=== PATIENT | female | born 1995 | race Caucasian/White ===

== ENCOUNTER 2020-01-02 09:07 | Emergency (ER) | payer BC ==
[2020-01-02 09:48] LABS: Urine Blood 3+ (NEG); Urine Glucose NEGATIVE (NEG); Urine Protein NEGATIVE (NEG); Urine Specific Gravity <1.005 (1.005-1.030); Urine pH 6.5 (5.0-7.0)
[2020-01-02] MEDS ORDERED: ACETAMINOPHEN 500 MG TAB ONE (10:09)
[2020-01-02 10:14] LABS: Basophils % 0.3 % (0-1.3); Hematocrit 37.5 % (36.0-45.0); Lymphocytes % 27.5 % (15.3-44.8); MPV 8.1 fL (7.6-11.3); RBC Red Blood Cell Count 4.28 M/uL (3.86-4.86)
[2020-01-02 10:18] LABS: BUN Blood Urea Nitrogen 7 mg/dL (7-18); Bicarbonate 26 mmol/L (21-32); Glucose Level 112 mg/dL (74-106); Potassium 3.3 mmol/L (3.5-5.1); Sodium Level 134 mmol/L (136-145)
[2020-01-02 10:29] LABS: Urine Bacteria 20-50 /HPF (<20); Urine Culture Reflex Order NOT NEEDED; Urine RBC <5 /HPF (NONE SEEN)
[2020-01-02] MEDS ORDERED: CEFTRIAXONE/SWI 1gm 1 GM/10 ML SYR ONE (10:40)
[2020-01-02] MEDS ORDERED: NA CHLORIDE 0.9% 2,000 ML ONE (10:40)
--- OUTSIDE RECORDS SUMMARY | 2020-01-02 10:45 | XMS REPORT | Continuity of Care Document ---
:1995 Author Organization [facility] Address [address] [place] [address] Care Team Providers Name Role Phone Gabriele RN Attending Clinician Unavailable Nurse, Urgent Attending Clinician Unavailable Problems This patient has no known problems. Allergies, Adverse Reactions, Alerts This patient has no known allergies or adverse reactions. Medications This patient has no known medications. Procedures This patient has no known procedures. Encounters Start End Encounter Admission Attending Care Care Encounter Source Date/Time Date/Time Type Type Clinicians Facility Department ID 2019-12-28 2019-12-28 Telephone Kellie Suazo [id number] 00:00:00 00:00:00 [place] [id number] [id number] 2019-12-28 2019-12-28 Letter Kellie Suazo [id number] 00:00:00 00:00:00 (Out) [place] [id number] [id number] 2019-12-26 2019-12-26 Laboratory Nurse, [facility] [id number] 16:11:45 16:48:51 Only Urgent HEALTH [id number] [facility] [id number] Primary & 370 Specialty Care Results This patient has no known results.
[2020-01-02 10:46] LABS: Albumin 3.7 g/dL (3.4-5.0); Bilirubin Direct 0.2 mg/dL (0-0.2); Bilirubin Total 0.7 mg/dL (0.2-1.0); Protein, Total 8.4 g/dL (6.4-8.2)
--- OUTSIDE RECORDS SUMMARY | 2020-01-02 10:46 | XMS REPORT | Summary of Care ---
:1995 Author Organization [facility] Address [address] [place] [address] Care Team Providers Name Role Phone Long Insurance [facility] Primary [facility] Provider Reason for Visit Reason Comments CONTROL telehealth Encounter Details Date Type Department Care Team Description 10/06/[address] [facility] general [place] Lianet Zhong, counseling and advice [address] [facility] for contraceptive [place], [place] [address] management ( Primary [phone] ST Dx) [phone] [place], [place] [address] Allergies No Known Allergiesdocumented as of this encounter (statuses as of 10/06/2019) Medications Medication Sig Dispensed Refills Start Date End Date Status buPROPion SR Take 1 tablet by 60 tablet 0 10/22/2018 Active (WELLBUTRIN SR) 150 mg mouth 2 (two) SR tabletIndications: times daily. Depression affecting in third trimester, antepartum docusate calcium 240 mg Take 1 capsule 60 capsule 1 10/22/2018 Active capsuleIndications: by mouth once (spontaneous vaginal daily as needed delivery), Single live for , Anemia, Constipation. ibuprofen 600 mg Take 1 tablet by 60 tablet 1 10/22/2018 Active tabletIndications: mouth every 6 (spontaneous vaginal (six) hours as delivery), Single live needed for Pain (scale 1-3) or Pain (scale 4-6) (Pain). Take with food or milk. Iron Fum & P-FA-Vit B & Take 1 capsule 30 capsule 2 10/22/2018 Active C No.9 (INTEGRA PLUS) by mouth daily. 125 mg iron- 1 mg CapIndications: Depression affecting in third trimester, antepartum, History of gestational diabetes mellitus (GDM), Polyp of colon, unspecified part of colon, unspecified type, Obesity in , History of IBS, 39 weeks gestation of , Depression, unspecified depression type, Sponge kidney, Morbid obesity with body mass index of 40.0-49.9, (spontaneous vaginal delivery), Anemia, esomeprazole (NEXIUM) Take 40 mg by 0 Active 40 mg capsule mouth daily with breakfast. buPROPion XL Take 1 tablet by 30 tablet 0 01/21/2019 Active (WELLBUTRIN XL) 150 mg mouth daily. 24 hr tabletIndications: Other depression esomeprazole (NEXIUM) Take 1 capsule 30 capsule 0 01/21/2019 Active 40 mg by mouth daily capsuleIndications: with breakfast. Heartburn norelgestromin-ethinyl Apply 1 Patch to 4 Patch 2 10/06/2019 Active estradiol (XULANE) skin weekly. 150-35 mcg/24 hr patchIndications: Other general counseling and advice for contraceptive management documented as of this encounter (statuses as of 10/06/2019) Active Problems Problem Noted Date Morbid obesity with body mass index of 40.0-49.9 10/20 Other depression 06/30/2018 History of IBS 03/17/2018 Polyp of colon, unspecified part of colon, unspecified type 07/08/2017 Tobacco use 11/01/2015 Gastroesophageal reflux disease without esophagitis documented as of this encounter (statuses as of 10/06/2019) Resolved Problems Problem Noted Date Resolved Date Encounter for care of lactating mother 11/11/2018 01/24/2019 (spontaneous vaginal delivery) 10/22/201811/11 Single live 10/22/2018 11/11/2018 Anemia, 10/22/2018 01/24/2019 Sponge kidney 10/20/2018 11/11/2018 Depression affecting in third trimester, 9 11/11/2018 antepartum Headache in 09/22/2018 11/11/2018 39 weeks gestation of 06/21/2018 11/12/19 19 UTI symptoms 04/16/2018 11/11/2018 Supervision of high-risk 03/17/201811/11 Multiparity 03/17/2018 11/11/2018 Obesity in 03/17/2018 11/11/2018 Nausea and vomiting during prior to 22 weeks 03/1711/11/2018 gestation Weight gain finding 07/08/2017 03/17/2018 Uses vaginal contraceptive ring 07/08/2017 03/17/20 18 Supervision of high-risk of young primigravida, 07/08/2017 third trimester History of gestational diabetes mellitus (GDM) 11/01/2015 11/11/2018 11/01/2015 03/17/2018 documented as of this encounter (statuses as of 10/06/2019) Immunizations Name Administration Dates Next Due HPV9 11/11/2018, 07/08/2017 09/05/2017 Influenza Virus Vaccine 03/08/2018 Tdap 08/05/2018 documented as of this encounter Social History Tobacco Use Types Packs/Day Years Used Date Current Every Day Smoker Cigarettes 0.75 Sta rted: 03/17/2010 Smokeless Tobacco: Never Used Comments: she smokes 5 cigarettes to 1.5 ppd, she says depends how she's feeling Alcohol Use Drinks/Week oz/Week Comments Yes 0 Standard drinks or equivalent 0.0 Occasionally Sex Assigned at Date Recorded Not on file Job Start Date Occupation Industry Not on file Not on file Not on file Travel History Travel Start Travel End No recent travel history available. documented as of this encounter Last Filed Vital Signs Not on filedocumented in this encounter Progress Notes Lianet Velez, WHCNP - 10/06/2019 3:00 PM CDT TELEHEALTH NOTE Verbal consent obtained from Patient: Bijal Andrade due to the COVID-19 pandemic for telehealth services provided below. Communication with patient was conducted via Telephone due to patient unable to obtain video call option. Location of Patient: Home Location of Provider: home Date of Service: 10/06/2019 Chief Complaint: control HPI: Bijal Andrade is a 24 year old female with Past Medical History: Diagnosis Date Anemia, 10/22/2018 Chronic kidney disease Sponge Kidney / Stones/ UTI Depression, unspecified depression type 06/30/2018 GDM (gestational diabetes mellitus) 11/01/2015 IBS (irritable bowel syndrome) Medullary sponge kidney Migraine The patient visit is conducted via telehealth on today. She reports she desires to start control on today. She reports the last time she had intercourse was 2 days before her cycle was complete, she reports her last cycle ended on 09/28/19. She reports she desires to start control patch on today visit. She declines wanting to start ocp because she feels as though she may forget to take the pill, and she does not desire depo because of weight gain. Se ultimately desires an IUD but reports she will come back to clinic in 3 months to be switched. .COVID-19 SCREEN: ? Recent history of travel to a high-risk area: No ? Recent sick contacts before or during admission: No ? Contact with a proven COVID-19 case: No ? Symptoms of COVID-19, which include fever, dry cough, fatigue, difficulty breathing: No This patient is considered low risk for COVID-19 infection. MEDICATIONS: Current Outpatient Medications Medication Sig Dispense Refill norelgestromin-ethinyl estradiol (XULANE) 150-35 mcg/24 hr patch Apply 1 Patch to skin weekly. 4Patch 2 buPROPion XL (WELLBUTRIN XL) 150 mg 24 hr tablet Take 1 tablet by mouth daily. 30 tablet 0 esomeprazole (NEXIUM) 40 mg capsule Take 40 mg by mouth daily with breakfast. esomeprazole (NEXIUM) 40 mg capsule Take 1 capsule by mouth daily with breakfast. 30 capsule 0 buPROPion SR (WELLBUTRIN SR) 150 mg SR tablet Take 1 tablet by mouth 2 (two) times daily. 60 tablet 0 docusate calcium 240 mg capsule Take 1 capsule by mouth once daily as needed for Constipation. 60 capsule 1 ibuprofen 600 mg tablet Take 1 tablet by mouth every 6 (six) hours as needed for Pain (scale 1-3) or Pain (scale 4-6) (Pain). Take with food or milk. 60 tablet 1 Iron Fum & P-FA-Vit B & C No.9 (INTEGRA PLUS) 125 mg iron- 1 mg Cap Take 1 capsule by mouth daily. 30 capsule 2 No current facility-administered medications for this visit. ROS Constitutional: negative Eyes: negative Ears: negative Nose/Sinuses: negative Mouth/Throat: negative Cardiovascular: negative Respiratory: negative Gastrointestinal: negative Genitourinary: negative Musculoskeletal: negative Integumentary: negative Neuro: negative Psych: negative Endocrine: negative Hem/Lymph: negative Allergy/Immunology: negativet TELEHEALTH EXAM Constitutional: alert and in no distress Respiratory: breathing comfortably Neuro: answers questions appropriately Psych: normal affec ASSESSMENT/ PLAN Bijal Andrade is a 24 year old female with PMH as above presenting with: 1. Other general counseling and advice for contraceptive management Comment; desires Plan; as ordered - norelgestromin-ethinyl estradiol (XULANE) 150-35 mcg/24 hr patch; Apply 1 Patch to skin weekly. Dispense: 4 Patch; Refill: 2 Patient advised on risk/benefits of all control she verbalized understanding and she elected to start the control. Patient advised on quick start and to use a back up method condoms for at least 2 weeks she verbalized understanding After visit summary (AVS ) documentation will be available through [employer] for this encounter. A total of 15 minutes was spent on the Telephone due to patient unable to obtain video call option. MACHO Liu documented in this encounter Plan of Treatment Date Type Specialty Care Team Description 01/06/2020 Office Visit [facility] Jnaeth Velez WHCNP [address] [place], [place] [address] [phone] Health Maintenance Due Date Last Done Comments PNEUMOCOCCAL 0-64 YEARS 09/27/2003 COMBINED SERIES (1 of 1 - PPSV23) MENINGOCOCCAL B VACCINES (1 of 09/27/2007 2 - Risk Bexsero 2-dose series) INFLUENZA VACCINE (#1) 2019 03/08/2018 HPV VACCINES (3 - Female 03/14/2019 11/11/2018, 3-dose series) 07/08/2017 CHLAMYDIA SCREENING 01/22/2020 01/21/2019, 09/29/2018, 03/17/2018 PAP SMEAR 01/21/2022 01/21/2019 DTaP,Tdap,and Td Vaccines (2 - 08/05/2028 08/05/2018 Td) MENINGOCOCCAL VACCINE Aged Out No longer eligible based on patient's age to complete this to pic documented as of this encounter Results Not on filedocumented in this encounter Visit Diagnoses Diagnosis Other general counseling and advice for contraceptive management - Primary documented in this encounter Insurance Payer Benefit Plan Subscriber ID Effective Dates Phone Address Type / Group [facility] [id number] 2015-Saúl [phone] [address] PPO/POS [place] - OUT OF 7 [id number] [place] [address] documented as of this encounter Advance Directives Name Relationship Healthcare Agent Communication Relationship Sohail Valdez Spouse Primary healthcare agent
--- OUTSIDE RECORDS SUMMARY | 2020-01-02 10:46 | XMS REPORT | Summary of Care ---
:1995 Author Organization [facility] Address [address] [place] [address] Care Team Providers Name Role Phone Long Insurance Hmo Trevin Velez Primary Care Provider Reason for Visit Reason Comments Rx Concern/Question Pt. Called. Having Problems with Patches. Encounter Details Date Type Department Care Team Description 10/18/2019 Telephone [facility]- Lianet Velez Rx Concern/Question MACHO Scott (Pt. Called. Having [address] Problems with [place], [place] GA[place] A Patches.) [phone] [place], [place] [address] Allergies No Known Allergiesdocumented as of this encounter (statuses as of 10/21/2019) Medications Medication Sig Dispensed Refills Start Date [...] as of this encounter (statuses as of 10/21/2019) Active Problems Problem Noted Date Morbid obesity with body mass index of 40.0-49.9 10/20 Other depression 06/30/2018 History of IBS 03/17/2018 Polyp of colon, unspecified part of colon, unspecified type 07/08/2017 Tobacco use 11/01/2015 Gastroesophageal reflux disease without esophagitis documented as of this encounter (statuses as of 10/21/2019) Resolved Problems Problem Noted Date Resolved Date [...] as of this encounter (statuses as of 10/21/2019) Immunizations Name Administration Dates Next Due HPV9 [...] Signs Not on filedocumented in this encounter Plan of Treatment Date Type Specialty Care Team Description 01/06/2020 Office Visit [facility] [address] [address] [phone] Health Maintenance Due Date Last Done Comments PNEUMOCOCCAL 0-64 YEARS 09/27/2003 COMBINED SERIES (1 of 1 - PPSV23) MENINGOCOCCAL B VACCINES (1 of 09/27/2007 2 - Risk Bexsero 2-dose series) HPV VACCINES (3 - Female 03/14/2019 11/11/2018, 3-dose series) 07/08/2017 CHLAMYDIA SCREENING 01/22/2020 01/21/2019, 09/29/2018, 03/17/2018 INFLUENZA VACCINE (Season 02/21/2020 03/08/2018 Ended) PAP SMEAR 01/21/2022 01/21/2019 DTaP,Tdap,and Td Vaccines (2 - 08/05/2028 08/05/2018 Td) MENINGOCOCCAL VACCINE Aged Out No longer eligible based on patient's age to complete this to pic documented as of this encounter Results Not on filedocumented in this encounter Insurance Payer Benefit Plan Subscriber ID Effective Dates Phone Address Type / Group BCBS [facility] [id number] 2015-Saúl [phone] [address] PPO/POS [place] - OUT OF 7 [id number] [place] [address] documented as of this encounter Advance Directives Name Relationship Healthcare Agent Communication Relationship Sohail Valdez Spouse Primary healthcare agent
--- OUTSIDE RECORDS SUMMARY | 2020-01-02 10:46 | XMS REPORT | Summary of Care ---
:1997 Author Organization [facility] Address [address] [place] [address] Care Team Providers Name Role Phone Long Insurance Hmo Trevin Velez Primary Care Provider Reason for Visit Reason Comments Rx Concern/Question Pt. Called. Having Problems with Patches. Encounter Details Date Type Department Care Team Description 10/18/2019 Telephone [facility]- Lianet Velez Rx Concern/Question MACHO Scott (Pt. Called. Having [address] Problems with [place], [place] GAURAV A Patches.) [phone] [place], [place] [address] Allergies No Known Allergiesdocumented as of this [...] 01/06/2020 Office Visit [facility] [address] [address] [phone] Health Maintenance Due Date Last Done Comments [...] Dates Phone Address Type / Group BCBS [facility] [id number] 2015-Saúl [phone] [address] PPO/POS [place] - OUT OF 7 [id number] [place] [address] documented as of this encounter Advance Directives Name Relationship Healthcare Agent Communication Relationship Sohail Valdez Spouse Primary healthcare agent
--- OUTSIDE RECORDS SUMMARY | 2020-01-02 10:47 | XMS REPORT | Summary of Care ---
:[address] [facility] Address [address] [place] [address] Care Team Providers Name Role Phone Long Insurance Hmo Trevin Velez [facility] Primary Care Provider Reason for Visit Reason Comments Assessment UTI Encounter Details Date Type Department Care Team Description 10/28/2019 Telephone [facility]- Lianet Velez, Assessment (UTI) [facility] [address] [facility] [address] [place] [address]55 [facility] [phone] [place], [place] [address] [phone] Allergies No Known Allergiesdocumented as of this encounter (statuses as of 10/28/2019) Medications Medication Sig Dispensed Refills Start Date [...] as of this encounter (statuses as of 10/28/2019) Active Problems Problem Noted Date Morbid obesity with body mass index of 40.0-49.9 10/20 Other depression 06/30/2018 History of IBS 03/17/2018 Polyp of colon, unspecified part of colon, unspecified type 07/08/2017 Tobacco use 11/01/2015 Gastroesophageal reflux disease without esophagitis documented as of this encounter (statuses as of 10/28/2019) Resolved Problems Problem Noted Date Resolved Date [...] as of this encounter (statuses as of 10/28/2019) Immunizations Name Administration Dates Next Due HPV9 [...] 01/06/2020 Office Visit [facility] Janeth Velez, [facility] [address] [place], [place] [address] [phone] Health Maintenance Due Date Last Done Comments [...] Dates Phone Address Type / Group [facility] [id number] 2015-Saúl [phone] [address] PPO/POS [place] - OUT OF t 7 [id number] [place] [address] documented as of this encounter Advance Directives Name Relationship Healthcare Agent Communication Relationship Sohail Valdez Spouse Primary healthcare agent
--- OUTSIDE RECORDS SUMMARY | 2020-01-02 10:48 | XMS REPORT | Summary of Care ---
:1997 Author Organization [facility] Address [address] [place] [address] Care Team Providers Name Role Phone Long Insurance Hmo Trevin Velez [facility] Primary Care Provider Reason for Visit Reason Comments UTI Encounter Details Date Type Department Care Team Description [facility]/28/2019 [facility] Lianet Carrion, UTI [address] [place] [address] [address] [facility] [phone] [place], [place] [address] [phone] Allergies No Known Allergiesdocumented as of this encounter (statuses as of 10/28/2019) Medications Medication Sig Dispensed Refills Start Date End Date Status buPROPion SR Take 1 tablet 60 tablet 0 10/22/2018 Ac tive (WELLBUTRIN SR) 150 mg by mouth 2 SR tabletIndications: (two) times Depression affecting daily. in third trimester, antepartum docusate calcium 240 Take 1 capsule 60 capsule 1 10/22/2018 Active mg capsuleIndications: by mouth once (spontaneous daily as needed vaginal delivery), for Single live , Constipation. Anemia, ibuprofen 600 mg Take 1 tablet 60 tablet 1 10/22/2018 Active tabletIndications: by mouth every (spontaneous vaginal 6 (six) hours delivery), Single live as needed for Pain (scale 1-3) or Pain (scale 4-6) (Pain). Take with food or milk. Iron Fum & P-FA-Vit B Take 1 capsule 30 capsule 2 10/22/2018 Active & C No.9 (INTEGRA by mouth daily. PLUS) 125 mg iron- 1 mg CapIndications: Depression [...] with breakfast. buPROPion XL Take 1 tablet 30 tablet 0 01/21/2019 Ac tive (WELLBUTRIN XL) 150 mg by mouth daily. 24 hr tabletIndications: Other depression esomeprazole (NEXIUM) Take 1 capsule 30 capsule 0 01/21/2019 Active 40 mg by mouth daily capsuleIndications: with breakfast. Heartburn norelgestromin-ethinyl Apply 1 Patch 4 Patch 2 10/06/2019 Active estradiol (XULANE) to skin weekly. 150-35 mcg/24 hr patchIndications: Other general counseling and advice for contraceptive management Nitrofurantoin&Nit. Take 1 capsule 20 capsule 0 10/28/2019 Active Macrocryst (MACROBID) by mouth 2 100 mg (two) times capsuleIndications: daily for 10 UTI symptoms days. documented as of this encounter (statuses as [...] Travel End No recent travel history available. COVID-19 Exposure Response Date Recorded In the last month, have you been in contact with No / Unsure 10/28/2019 4:23 PM CDT someone who was confirmed or suspected to have Coronavirus / COVID-19? documented as of this encounter Last Filed Vital Signs Not on filedocumented in this encounter Plan of Treatment Date Type Specialty Care Team Description 01/06/2020 Office Visit [facility] Janeth Velez, WHCNP [address] [address] [phone] Health Maintenance Due Date Last Done Comments [...] filedocumented in this encounter Visit Diagnoses Diagnosis UTI symptoms - Primary documented in this encounter Insurance Payer Benefit Plan Subscriber ID Effective Dates Phone Address Type / Group [facility] [id number] 2015-Saúl [phone] [address] PPO/POS [place] - OUT OF t 7 [id number] [place] [address] documented as of this encounter Advance Directives Name Relationship Healthcare Agent Communication Relationship Sohail José Miguel Spouse Primary healthcare agent
--- OUTSIDE RECORDS SUMMARY | 2020-01-02 10:48 | XMS REPORT | Summary of Care ---
:1997 Author Organization [facility] Address [address] [place] [address] Care Team Providers Name Role Phone Long Insurance Hmo Trevin Velez [facility] Primary Care Provider Reason for Visit Reason Comments Assessment UTI Encounter Details Date Type Department Care Team Description 10/28/2019 Telephone [facility]- Lianet Velez, Assessment (UTI) [facility] [address] [facility] [address] [place] [address] [facility] [phone] [place], [place] [address] [phone] Allergies No Known Allergiesdocumented as of this [...] Care Team Description 01/06/2020 Office Visit OB Rajis Janeth Velez, CNP [address] [facility] [place] [address] [phone] Health Maintenance Due Date Last Done Comments [...] Effective Dates Phone Address Type / Group [facility] [id number] 2015-Saúl [phone] [address] PPO/POS [place] - OUT OF t 7 [id number] [place] [address] documented as of this encounter Advance Directives Name Relationship Healthcare Agent Communication Relationship Sohail Valdez Spouse Primary healthcare agent
--- OUTSIDE RECORDS SUMMARY | 2020-01-02 10:49 | XMS REPORT | Summary of Care ---
:1995 Author Organization [facility] Address [address] [place] [address] Care Team Providers Name Role Phone Long Insurance [facility] Provider Reason for Visit Reason Comments LAB Encounter Details Date Type Department Care Team Description 10/28/2019 Group Tester Visit [facility] Vadim Velez, [facility] [address] [place] [address] UTI symptoms [facility], [facility] (Primary Dx) [address] [place] [address] Allergies No Known Allergiesdocumented as of this encounter (statuses as of 10/31/2019) Medications Medication Sig Dispensed Refills Start Date [...] as of this encounter (statuses as of 10/31/2019) Active Problems Problem Noted Date Morbid obesity with body mass index of 40.0-49.9 10/20 Other depression 06/30/2018 History of IBS 03/17/2018 Polyp of colon, unspecified part of colon, unspecified type 07/08/2017 Tobacco use 11/01/2015 Gastroesophageal reflux disease without esophagitis documented as of this encounter (statuses as of 10/31/2019) Resolved Problems Problem Noted Date Resolved Date [...] as of this encounter (statuses as of 10/31/2019) Immunizations Name Administration Dates Next Due HPV9 [...] OB Rajis Janeth Velez, CNP [address] [facility] [place] [address] [phone] Health Maintenance Due Date Last Done Comments [...] to pic documented as of this encounter Procedures Procedure Name Priority Date/Time Associated Comments Diagnosis POCT URINALYSIS W/O Routine 10/28/2019 4:32 PM UTI symptoms R esults for this SPECIFIC GRAVITY CDT procedure a re in the results section. URINE CULTURE Routine 10/28/2019 4:31 PM UTI symptoms Results for this CDT procedure are i n the results section. documented in this encounter Results POCT URINALYSIS W/O SPECIFIC GRAVITY (10/28/2019 4:32 PM CDT) Pathologist Sig nature POCT PH U 6 5 - 8 mg/dl POCT U LEUK EST 2+ Negative - Negative POCT U NIT positive Negative - Negative POCT U PROT 2+ Negative - Negative POCT U GLU negative Negative - Negative POCT U KETONE negative Negative - Negative POCT U BLD large Negative - Negative Specimen Urine - URINE, CLEAN CATCH URINE CULTURE (10/28/2019 4:31 PM CDT) URINE CULTURE >100,000 CFU/mL [facility] Escherichia coli SERVICES Specimen Urine - URINE, CLEAN CATCH Organism Antibiotic Method Susceptibility Escherichia coli Ampicillin SUSCEPTIBILITY TESTING 4: Susce ptible Escherichia coli Cefazolin SUSCEPTIBILITY TESTING <=4: Martha ceptible Escherichia coli Ceftriaxone SUSCEPTIBILITY TESTING <=1: Martha ceptible Escherichia coli Ciprofloxacin SUSCEPTIBILITY TESTING <=0.25: Susceptible Escherichia coli Ertapenem SUSCEPTIBILITY TESTING <=0.5: S usceptible Escherichia coli Gentamicin SUSCEPTIBILITY TESTING <=1: Martha ceptible Escherichia coli Levofloxacin SUSCEPTIBILITY TESTING <=0.12: Susceptible Escherichia coli Nitrofurantoin SUSCEPTIBILITY TESTING <=16: Espinoza sceptible Escherichia coli Piperacillin/Tazobactam SUSCEPTIBILITY TESTING <=4: Susceptible Escherichia coli Trimethoprim/Sulfamethoxa SUSCEPTIBILITY TESTIN G <=20: Susceptible luis Comment: Nitrofurantoin is not recommended for us e in treating pyelonephritis or systemic disease. Performing Organization Address City/State/Zipcode Phone Number [facility] CLIA: [id number], [address] [place], [place] [address] [facility] documented in this encounter Visit Diagnoses Diagnosis UTI symptoms - Primary documented in this encounter Insurance Payer Benefit Plan Subscriber ID Effective Dates Phone Address Type / Group [facility] [id number] 2015-Saúl [phone] [address] PPO/POS [place] - OUT OF t 7 [id number] [place] [address] documented as of this encounter Advance Directives Name Relationship Healthcare Agent Communication Relationship Sohail Valdez Spouse Primary healthcare agent
--- OUTSIDE RECORDS SUMMARY | 2020-01-02 10:49 | XMS REPORT | Summary of Care ---
:1995 Author Organization [facility] Address [address] [place] [address] Care Team Providers Name Role Phone Long Insurance [facility] Provider Reason for Visit Reason Comments URINARY TRACT INFECTION Encounter Details Date Type Department Care Team Description 10/31/2019 Telephone [facility]- Carlos Byrd, UR INARY TRACT [facility] INFECTION [address] [facility] [address] [place], [place] [id number] Allergies No Known Allergiesdocumented as of [...] OB Satellites Janeth Velez, WHCNP [address] [place] [address] [phone] Health Maintenance Due Date Last Done Comments [...] filedocumented in this encounter Visit Diagnoses Diagnosis Urinary tract infection without hematuri a, site unspecified - Primary documented in this encounter Insurance Payer Benefit Plan Subscriber ID Effective Dates Phone Address Type / Group [facility] [id number] 2015-Saúl [phone] [address] PPO/POS [place] - OUT OF t 7 [id number] [place] [address] documented as of this encounter Advance Directives Name Relationship Healthcare Agent Communication Relationship Sohailhumble Valdez Spouse Primary healthcare agent
--- OUTSIDE RECORDS SUMMARY | 2020-01-02 10:50 | XMS REPORT | Summary of Care ---
:1995 Author Organization [facility] Address [address] [place] [address] Care Team Providers Name Role Phone Long Insurance [facility] Primary [facility] Provider Reason for Visit Reason Comments URINARY TRACT INFECTION Encounter Details Date Type Department Care Team Description 10/31/2019 Telephone [facility]- Carlos Byrd, UR INARY TRACT [facility] INFECTION 110[address] [facility] [address] [place], [place] [phone] Allergies No Known [...] OB Satellites Janeth Velez, WHCNP [address] [place] [id number] [phone] Health Maintenance Due Date Last Done Comments [...] Effective Dates Phone Address Type / Group [facility] [id number] 2015-Saúl [phone] [address] PPO/POS [place] - OUT OF t 7 [id number] [place] [address] documented as of this encounter Advance Directives Name Relationship Healthcare Agent Communication Relationship Sohailhumble Valdez Spouse Primary healthcare agent
--- OUTSIDE RECORDS SUMMARY | 2020-01-02 10:51 | XMS REPORT | Summary of Care ---
:1995 Author Organization [facility] Address [address] [place] [address] Care Team Providers Name Role Phone Long Insurance Hmo Trevin Velez [facility] Primary Care Provider Reason for Visit Reason Comments CONTROL Discuss B/C Change Encounter Details Date Type Department Care Team Description [facility] Bir th control counseling (Primary Dx); Sabi Zhong KASSANDRA Screen for STD (sexually transmitted dis ease) [address] [address] [place], [place] 6[address] Allergies No Known Allergiesdocumented as of this encounter (statuses as of 11/08/2019) Medications Medication Sig Dispensed Refills Start Date [...] as of this encounter (statuses as of 11/08/2019) Active Problems Problem Noted Date Morbid obesity with body mass index of 40.0-49.9 10/20 Other depression 06/30/2018 History of IBS 03/17/2018 Polyp of colon, unspecified part of colon, unspecified type 07/08/2017 Tobacco use 11/01/2015 Gastroesophageal reflux disease without esophagitis documented as of this encounter (statuses as of 11/08/2019) Resolved Problems Problem Noted Date Resolved Date [...] as of this encounter (statuses as of 11/08/2019) Immunizations Name Administration Dates Next Due HPV9 [...] been in contact with No / Unsure 11/08/2019 2:01 PM CDT someone who was confirmed or suspected to have Coronavirus / COVID-19? documented as of this encounter Last Filed Vital Signs Vital Sign Reading Time Taken Comments Blood Pressure 136/81 11/08/2019 2:07 PM CDT Pulse 115 11/08/2019 2:02 PM CDT Temperature 37.4 C (99.3 F) 11/08/2019 2:02 PM CDT Respiratory Rate 16 11/08/2019 2:02 PM CDT Oxygen Saturation - - Inhaled Oxygen Concentration - - Weight 97.7 kg (215 lb 5 oz) 11/08/2019 2:02 PM CDT Height 165.1 cm (5' 5") 11/08/2019 2:02 PM CDT Body Mass Index 35.83 11/08/2019 2:02 PM CDT documented in this encounter Progress Notes RosieLianet, WHCNP - 11/08/2019 1:30 PM CDT Chief complaint: Chief Complaint Patient presents with CONTROL Discuss B/C Change HPI: the patient is here today for control management. She reports she was recently started onthe control patch but desires to be switched to something else. She reports her patch is constantly falling off and that makes her nervous that she may become . She reports she is still currently using the control patch, but she desires nexplanon instead. She reports she does desire STI testing on today, reporting she is with a new partner. She reports they are not exclusive and desires to be tested on today. Histories OB History Para Term AB Living 2 2 2 0 0 1 SAB TAB Ectopic Multiple Live Births 0 0 0 0 1 # Outcome Date GA Lbr Nick/2nd Weight Sex Delivery Anes PTL Lv 2 Term 10/21/18 39w1d 7 lb 15 oz (3.6 kg) 1 Term 11/02/15 40w0d 8 lb 15.2 oz (4.06 kg) M NORMAL SPONT JENY Past Medical History: Diagnosis Date Anemia, 10/22/2018 Chronic kidney disease Sponge Kidney / Stones/ UTI Depression, unspecified depression type 06/30/2018 GDM (gestational diabetes mellitus) 11/01/2015 IBS (irritable bowel syndrome) Medullary sponge kidney Migraine Family History Problem Relation Age of Onset Colon Cancer Maternal Grandfather 63 Colon Cancer Paternal Grandfather 63 Asthma Mother Arthritis Mother defects Mother Cancer Mother 25 Cervical Heart Mother Neurological Mother Depression Father Diabetes Father Hypertension Father defects Sister Asthma Maternal Aunt Depression Maternal Aunt Heart Maternal Aunt Arthritis Maternal Grandmother High cholesterol Maternal Grandmother Osteoporosis Maternal Grandmother Mental retardation Other Psychiatry Other Breast Cancer NoFHx Ovarian Cancer NoFHx Uterine Cancer NoFHx Genetic NoFHx Family Status Relation Name Status MGFa Alive PGFa Alive Mo (Not Specified) Fa (Not Specified) Sis (Not Specified) MAunt (Not Specified) MGMo (Not Specified) OTHER (Not Specified) NoFHx (Not Specified) Past Surgical History: Procedure Laterality Date COLONOSCOPY 04/2017 Pre-Cancerous EGD (ENDO) 04/2017 Erosion Social History Socioeconomic History Marital status: Single Spouse name: Not on file Number of children: Not on file Years of education: Not on file Highest education level: Not on file Occupational History Occupation: Unemployed Social Needs Financial resource strain: Not on file Food insecurity: Worry: Not on file Inability: Not on file Transportation needs: Medical: Not on file Non-medical: Not on file Tobacco Use Smoking status: Current Every Day Smoker Packs/day: 0.75 Types: Cigarettes Start date: 03/17/2010 Smokeless tobacco: Never Used Tobacco comment: she smokes 5 cigarettes to 1.5 ppd, she says depends how she's feeling Substance and Sexual Activity Alcohol use: Yes Alcohol/week: 0.0 standard drinks Comment: Occasionally Drug use: Not Currently Types: Marijuana Comment: Occasionally Sexual activity: Yes Partners: Male control/protection: Condom Comment: Last intercourse 01/03/2019 Lifestyle Physical activity: Days per week: Not on file Minutes per session: Not on file Stress: Not on file Relationships Social connections: Talks on phone: Not on file Gets together: Not on file Attends yarsani service: Not on file Active member of club or organization: Not on file Attends meetings of clubs or organizations: Not on file Relationship status: Not on file Intimate partner violence: Fear of current or ex partner: Not on file Emotionally abused: Not on file Physically abused: Not on file Forced sexual activity: Not on file Other Topics Concern Not on file Social History Narrative No domestic abuse or violence. Has cats but doesn't change liter box. Samaritan: None Social History Substance and Sexual Activity Sexual Activity Yes Partners: Male control/protection: Condom Comment: Last intercourse 01/03/2019 Labs Labs are pending. Radiology No new radiology. Allergies Bijal has No Known Allergies. Medications Bijal has a current medication list which includes the following prescription(s): norelgestromin-ethinyl estradiol, bupropion xl, esomeprazole, esomeprazole, bupropion sr, docusate calcium, ibuprofen, and iron fum & p-fa-vit b & c no.9. Review of Systems Constitutional: Negative. HENT: Negative. Eyes: Negative. Respiratory: Negative. Breasts: Negative. Cardiovascular: Negative. Gastrointestinal: Negative. Genitourinary: Negative. Musculoskeletal: Negative. Skin: Negative. Neurological: Negative. Psychiatric/Behavioral: Negative. Endocrine: Endocrine negative BP 136/81 (BP Location: Right arm, Patient Position: Sitting, BP CUFF SIZE: Adult Medium) | Pulse 115 | Temp 37.4 C (99.3 F) (Oral) | Resp 16 | Ht 5' 5" (1.651 m) | Wt 215 lb 5 oz (97.7 kg) |LMP 11/01/2019 (Approximate) | BMI 35.83 kg/m Pregravid BMI: Could not be calculated Physical Exam Vitals reviewed. Constitutional: She is oriented to person, place, and time. She appears well- developed and well-nourished. Her body habitus is normal. Cardiovascular: Regular rate and rhythm. No peripheral edema present. Pulmonary/Chest: Normal inspiratory effort. Neuro/Psychiatric: She has a normal mood and affect. She is oriented to person, place, and time. Skin: Skin normal. No lesion, no rash and no ulceration present. Assessment/Plan Return to clinic in 12 weeks. 01/2020 for WWE or sooner as needed return in 1 week for nexplanon insert control counseling (primary encounter diagnosis) Comment: as ordered Plan: POCT TEST Screen for STD (sexually transmitted disease) Comment: as ordered Plan: GC & CHLAMYDIA AMPLIFIED ASSAY, HIV 1/2 AG-AB WITH REFLEX This visit did not involve counseling and coordination that comprised more than 50% of the visit time. MACHO Liu 11/08/2019 2:33 PM documented in this encounter Plan of Treatment Date Type Specialty Care Team Description 11/10/2019 Office Visit OB Satellites Janeth Velez [facility] [address] [place], [place] [address] [phone] 02/08/2020 Office Visit OB Satellites Janeth Velez [facility]NP [address] [place], [place] [address] [phone] Name Type Priority Associated Diagnoses Date/Ti me GC & CHLAMYDIA LAB Routine Screen for STD (sexually 0 11/08/2019 2:45 PM CDT AMPLIFIED ASSAY transmitted disease) HIV 1/2 AG-AB WITH LAB Routine Screen for STD (sexual ly 11/08/2019 2:45 PM CDT REFLEX transmitted disease) Health Maintenance Due Date Last Done Comments [...] encounter Procedures Procedure Name Priority Date/Time Associated Diagnosis Comme nts POCT TEST Routine 11/08/2019 2:06 PM control Results for this CDT counseling procedure are i n the results section. documented in this encounter Results POCT TEST (11/08/2019 2:06 PM CDT) Pathologist Sig nature POCT PREG Negative On board controls acceptable Yes with C Line POCT PREG LOT # POCT PREG TEST DATE Specimen Urine - URINE, CLEAN CATCH documented in this encounter Visit Diagnoses Diagnosis control counseling - Primary General counseling for initiation of oth er contraceptive measures Screen for STD (sexually transmitted dis ease) Screening examination for venereal disea se documented in this encounter Insurance Payer Benefit Plan Subscriber ID Effective Dates Phone Address Type / Group [facility] [id number] 2015-Saúl [phone] [address] PPO/POS [place] - OUT OF t 7 [id number] [place] [address] documented as of this encounter Advance Directives Name Relationship Healthcare Agent Communication Relationship Sohail Valdez Spouse Primary healthcare agent
--- OUTSIDE RECORDS SUMMARY | 2020-01-02 10:51 | XMS REPORT | Summary of Care ---
:1995 Author Organization [facility] Address [address] [place] [address] Care Team Providers Name Role Phone Long Insurance Hmo Trevin Velez [facility] Primary Care Provider Reason for Visit Reason Comments CONTROL Discuss B/C Change Encounter Details Date Type Department Care Team Description [facility] Bir th control counseling (Primary Dx); Sabi Zhong KASSANDRA Screen for STD (sexually transmitted dis ease) [address] [address] [place], [place] [address] Allergies No Known Allergiesdocumented as of this [...] file Gets together: Not on file Attends episcopal service: Not on file Active member of [...] Has cats but doesn't change liter box. Jain: None Social History Substance and Sexual Activity [...] OB Satellites Janeth Velez WHCNP [address] [place], [place] [address] [phone] 02/08/2020 Office Visit OB Satellites Janeth Velez [facility]NP [address] [place], [place] [address] [phone] Name Type Priority Associated Diagnoses Date/Ti me [...] Phone Address Type / Group [facility] [id number] 2015-Saúl [phone] [address] PPO/POS [place] - OUT OF t 7 [id number] [place] [address] documented as of this encounter Advance Directives Name Relationship Healthcare Agent Communication Relationship Sohail Valdez Spouse Primary healthcare agent
--- OUTSIDE RECORDS SUMMARY | 2020-01-02 10:51 | XMS REPORT | Summary of Care ---
:1995 Author Organization [facility] Address [address] [place] [address] Care Team Providers Name Role Phone Long Insurance [facility] Provider Reason for Visit Reason Comments URINARY TRACT INFECTION Encounter Details Date Type Department Care Team Description 10/31/2019 Telephone [facility]- Carlos Byrd, UR INARY TRACT [facility] INFECTION [address] [facility] [address] [place], [place] [address] Allergies No Known [...] OB Satellites Janeth Velez, WHCNP [address] [place] [address] 15 [phone] Health Maintenance Due Date Last Done Comments [...] Effective Dates Phone Address Type / Group [facility] [id number] 2015-Saúl [phone] [address] PPO/POS [place] - OUT OF t 7 [id number] [place] [address] documented as of this encounter Advance Directives Name Relationship Healthcare Agent Communication Relationship Sohailhumble Valdez Spouse Primary healthcare agent
--- OUTSIDE RECORDS SUMMARY | 2020-01-02 10:52 | XMS REPORT | Summary of Care ---
:[address] [facility] Address [address] [place] [address] Care Team Providers Name Role Phone Long Insurance Hmo Trevin Velez WHCNP Primary Care Provider Reason for Visit Reason Comments CONTROL Encounter Details Date Type Department Care Team Description [facility]counter for initial prescription of implantable subdermal contraceptive (Primary Dx); Sabi Martini C, WHCNP Nexplanon insertion; [address] Gastroesophageal reflux dise ase without esophagitis; [facility] Situational depression [phone] [facility] [phone] [place] [address] Allergies No Known Allergiesdocumented as of this encounter (statuses as of 11/10/2019) Medications Medication Sig Dispensed Refills Start End Date Status Date buPROPion SR Take 1 60 tablet 0 Active (WELLBUTRIN SR) 150 tablet by 9 mg SR mouth 2 tabletIndications: (two) times Depression affecting daily. in third trimester, antepartum docusate calcium 240 Take 1 60 capsule 1 Active mg capsule by 9 capsuleIndications: mouth once (spontaneous daily as vaginal delivery), needed for Single live , Constipation Anemia, . ibuprofen 600 mg Take 1 60 tablet 1 Act ynes tabletIndications: tablet by 9 (spontaneous mouth every vaginal delivery), 6 (six) Single live hours as needed for Pain (scale 1-3) or Pain (scale 4-6) (Pain). Take with food or milk. Iron Fum & P-FA-Vit B Take 1 30 capsule 2 Active & C No.9 (INTEGRA capsule by 9 PLUS) 125 mg iron- 1 mouth daily. mg CapIndications: Depression affecting in third trimester, antepartum, History of gestational diabetes mellitus (GDM), Polyp of colon, unspecified part of colon, unspecified type, Obesity in , History of IBS, 39 weeks gestation of , Depression, unspecified depression type, Sponge kidney, Morbid obesity with body mass index of 40.0-49.9, (spontaneous vaginal delivery), Anemia, buPROPion XL Take 1 30 tablet 0 Active (WELLBUTRIN XL) 150 tablet by 9 mg 24 hr mouth daily. tabletIndications: Other depression esomeprazole (NEXIUM) Take 1 30 capsule 0 Active 40 mg capsule by 9 capsuleIndications: mouth daily Heartburn with breakfast. norelgestromin-ethiny Apply 1 4 Patch 2 Active l estradiol (XULANE) Patch to 0 150-35 mcg/24 hr skin weekly. patchIndications: Other general counseling and advice for contraceptive management esomeprazole (NEXIUM) Take 1 30 capsule 1 Active 40 mg capsule by 0 capsuleIndications: mouth daily Gastroesophageal with reflux disease breakfast. without esophagitis esomeprazole (NEXIUM) Take 40 mg 0 0 Discontinued 40 mg capsule by mouth 20 (Reord er) daily with breakfast. Hospital, Clinic, or Other Ordered Dose Route Frequency Start Date End Date Status Facility Administered Medication etonogestrel (NEXPLANON) 68 mg Sdrm ONCE NOW 11/10/201910/21 Ended implant 68 mg documented as of this encounter (statuses as of 11/10/2019) Active Problems Problem Noted Date Nexplanon insertion 11/10/2019 Situational depression 11/10/2019 Morbid obesity with body mass index of 40.0-49.9 10/20 Other depression 06/30/2018 History of IBS 03/17/2018 Polyp of colon, unspecified part of colon, unspecified type 07/08/2017 Tobacco use 11/01/2015 Gastroesophageal reflux disease without esophagitis documented as of this encounter (statuses as of 11/10/2019) Resolved Problems Problem Noted Date Resolved Date [...] as of this encounter (statuses as of 11/10/2019) Immunizations Name Administration Dates Next Due HPV9 [...] been in contact with No / Unsure 11/10/2019 2:24 PM CDT someone who was confirmed or suspected to have Coronavirus / COVID-19? documented as of this encounter Last Filed Vital Signs Vital Sign Reading Time Taken Comments Blood Pressure 135/83 11/10/2019 2:26 PM CDT Pulse 110 11/10/2019 2:26 PM CDT Temperature 36.4 C (97.5 F) 11/10/2019 2:25 PM CDT Respiratory Rate 16 11/10/2019 2:25 PM CDT Oxygen Saturation - - Inhaled Oxygen Concentration - - Weight 96.9 kg (213 lb 9 oz) 11/10/2019 2:25 PM CDT Height 165.1 cm (5' 5") 11/10/2019 2:25 PM CDT Body Mass Index 35.54 11/10/2019 2:25 PM CDT documented in this encounter Progress Notes Lianet Velez WHCNP - 11/10/2019 2:15 PM CDTNexplanon PLACEMENT PROCEDURE NOTE Preoperative Diagnoses: desires LARC The risks, benefits and alternatives were discussed. The patient voiced her understanding. She wished to proceed and an informed consent was obtained. Patient has been identified by name and and will be undergoing Nexplanon placement. Patient is left handed. Patient, procedure and site have been confirmed by the following clinicians: Celia Velez DNP and Ricardo ROSALES . Timeout performed by MACHO Liu at 1310. Procedure: The patient is placed on the exam table in a supine position. Her non-dominant arm is flexed at the elbow and externally rotated so her wrist is parallel to her ear and her hand is positioned next to her head. The inner aspect of the upper arm is marked at 8cm and 12cm superior to the medial epicondyle, in the mid-portion of the upper arm, parallel with the humerus. The surface of the inner arm is then prepped with alcohol. Sterile drapes are applied. The insertion area is injected subcutaneously with 2 ccs of lidocaine 1% without epinephrine along the planned insertion tunnel. The Nex planon insertion needle is then inserted at 8cm superior to the medial epicondyle, using counter traction and lifting the skin to keep the needle in the subdermal connective tissue. The needle is advanced to 12 cm above the medial epicondyle. The cannula is then retracted and needle is removed. Thereis minimal bleeding from the insertion site. The Nexplanon capsule is easily palpable by myself and the patient. Sterile gauze and a pressure dressing is placed over the insertion site. The patient tolerated the procedure well and there were no complications. Post-procedure instructions given. Patient verbalized understanding. Findings/Assessment Nexplanon inserted successfully, patient tolerated procedure well Plan Return to clinic in 2 weeks. Nexplanon Lot #: [id number] Year removal date: 10/2022 Patient palpated implant: Yes Encounter for initial prescription of implantable subdermal contraceptive (primary encounter diagnosis) Nexplanon insertion Comment: routine Plan: POCT TEST Gastroesophageal reflux disease without esophagitis Comment: as ordered Plan: esomeprazole (NEXIUM) 40 mg capsule Situational depression Comment: reports having issues in her marriage, reports she is going through separation, denies SI/HI on today, declines the desires to start medication Plan: resource list provided to plaintext Depression screen positive. -Patient does not desire referral or meds at this time. Agreed to follow up if condition worsens. Ricardo Sharp RN - 11/10/2019 2:15 PM CDTPt in clinic for Nexplanon placement. Last date of sexual intercourse was 11/09/2019 with condom-patient is currently on Patch and is switching BC LMP 11/02/2019 UPT negative. Informed consent signed and obtained from pt Pt instructed to use a back up control method for the first 7 days, side effects and ER warnings discussed, verbalized understanding. Nexplanon (lot:[id number] exp:12/14/2021)dispensed from clinic stock to provider for placement. PHQ9 Total score 18. Pt denies suicidal or homicidal ideation. Provider Celia notified. Mental health resource list provided. documented in this encounter Plan of Treatment Date Type Specialty Care Team Description 02/08/2020 Office Visit [facility] Janeth Velez WHCNP [address] [place], [place] [address] [phone] Health Maintenance Due Date Last Done Comments PNEUMOCOCCAL 0-64 YEARS 09/27/2003 COMBINED SERIES (1 of 1 - PPSV23) MENINGOCOCCAL B VACCINES (1 09/27/2007 of 2 - Risk Bexsero 2-dose series) HPV VACCINES (3 - Female 03/14/2019 11/11/2018, 07/08/2017 3-dose series) INFLUENZA VACCINE (Season 02/21/2020 03/08/2018 Ended) CHLAMYDIA SCREENING 11/07/2020 11/08/2019, 01/21/2019, 09/29/2018, Additional history exists PAP SMEAR 01/21/2022 01/21/2019 DTaP,Tdap,and Td Vaccines (2 08/05/2028 08/05/2018 - Td) MENINGOCOCCAL VACCINE Aged Out No longer eligible based on patient 's age to complete this topic documented as of this encounter Procedures Procedure Name Priority Date/Time Associated Diagnosis Comme nts POCT Routine 11/10/2019 2:47 Encounter for initial Results for this TEST PM CDT prescription of procedure ar e in implantable subdermal the re sults contraceptive section. documented in this encounter Results POCT TEST (11/10/2019 2:47 PM CDT) Pathologist Sig nature POCT PREG Negative On board controls acceptable Yes with C Line POCT PREG LOT # POCT PREG TEST DATE Specimen Urine - URINE, CLEAN CATCH documented in this encounter Visit Diagnoses Diagnosis Encounter for initial prescription of im plantable subdermal contraceptive - Primary Nexplanon insertion Insertion of implantable subdermal contr aceptive Gastroesophageal reflux disease without esophagitis Esophageal reflux Situational depression documented in this encounter Administered Medications Medication Order MAR Action Action Date Dose Rate Site etonogestrel (NEXPLANON) Given 11/10/2019 3:20 PM CDT 68 mg Right Arm implant 68 mg 68 mg, Subdermal, ONCE NOW, 1 dose, Cynthia 11/10/19 at 1630, Routine, Use approved by: PEER TUTOR documented in this encounter Insurance Payer Benefit Plan Subscriber ID Effective Dates Phone Address Type / Group [facility] [id number] 2015-Saúl [phone] [address] PPO/POS [place] - OUT OF t 7 [id number] [place] [address] documented as of this encounter Advance Directives Name Relationship Healthcare Agent Communication Relationship Sohail Valdez Spouse Primary healthcare agent
--- OUTSIDE RECORDS SUMMARY | 2020-01-02 10:53 | XMS REPORT | Summary of Care ---
:1995 Author Organization [facility] Address [address] [place] [address] Care Team Providers Name Role Phone Long Insurance Hmo Trevin Velez [facility] Primary Care Provider Reason for Visit Reason Comments Refill Request Encounter Details Date Type Department Care Team Description [facility], Refill Request [address] [place] [address] [phone] [place], [place] [address] [phone] Allergies No Known Allergiesdocumented as of this encounter (statuses as of 12/19/2019) Medications Medication Sig Dispensed Refills Start Date End Date Status buPROPion SR (WELLBUTRIN Take 1 tablet 60 tablet 0 10/22/2018 Active SR) 150 mg SR by mouth 2 tabletIndications: (two) times Depression affecting daily. in third trimester, antepartum docusate calcium 240 mg Take 1 capsule 60 capsule 1 10/22/2018 Active capsuleIndications: by mouth once (spontaneous vaginal daily as needed delivery), Single live for , Anemia, Constipation. ibuprofen 600 mg Take 1 tablet 60 [...] 40.0-49.9, (spontaneous vaginal delivery), Anemia, buPROPion XL (WELLBUTRIN Take 1 tablet 30 tablet 0 01/21/2019 Active XL) 150 mg 24 hr by mouth daily. tabletIndications: Other depression esomeprazole (NEXIUM) 40 Take 1 capsule 30 capsule 0 9 Active mg capsuleIndications: by mouth daily Heartburn with breakfast. norelgestromin-ethinyl Apply 1 Patch 4 Patch 2 10/06/2019 Active estradiol (XULANE) to skin weekly. 150-35 mcg/24 hr patchIndications: Other general counseling and advice for contraceptive management esomeprazole (NEXIUM) 40 Take 1 capsule 30 capsule 1 0 Active mg capsuleIndications: by mouth daily Gastroesophageal reflux with breakfast. disease without esophagitis documented as of this encounter (statuses as of 12/19/2019) Active Problems Problem Noted Date Nexplanon insertion 11/10/2019 Situational depression 11/10/2019 Morbid obesity with body mass index of 40.0-49.9 10/20 Other depression 06/30/2018 History of IBS 03/17/2018 Polyp of colon, unspecified part of colon, unspecified type 07/08/2017 Tobacco use 11/01/2015 Gastroesophageal reflux disease without esophagitis documented as of this encounter (statuses as of 12/19/2019) Resolved Problems Problem Noted Date Resolved Date [...] as of this encounter (statuses as of 12/19/2019) Immunizations Name Administration Dates Next Due HPV9 11/11/2018, 07/08/2017 09/05/2017 Influenza Virus Vaccine 03/08/2018 TDAP 08/05/2018 documented as of this encounter Social [...] Description 02/08/2020 Office Visit [facility] Janeth Velez, CNP [address] [address] [phone] Health Maintenance Due Date Last Done Comments PNEUMOCOCCAL 0-64 YEARS 09/27/2003 COMBINED SERIES (1 of 1 - PPSV23) MENINGOCOCCAL B VACCINES (1 09/27/2007 of 2 - Risk Bexsero 2-dose series) HPV VACCINES (3 - Female 03/14/2019 11/11/2018, 07/08/2017 3-dose series) INFLUENZA VACCINE (Season 02/21/2020 03/08/2018 Ended) CHLAMYDIA SCREENING 11/07/2020 11/08/2019, 01/21/2019, 09/29/2018, Additional history exists Depression Screening 11/09/2020 11/10/2019, 11/10/2019 PAP SMEAR 01/21/2022 01/21/2019 DTaP,Tdap,and Td Vaccines (2 08/05/2028 08/05/2018 - Td) MENINGOCOCCAL VACCINE Aged Out No longer eligible based on patient 's age to complete this topic documented as of this encounter Results Not on filedocumented in this encounter Visit Diagnoses Diagnosis Other general counseling and advice for contraceptive management documented in this encounter Insurance Payer Benefit Plan Subscriber ID Effective Dates Phone Address Type / Group BCBS OF [facility] [id number] 2015-Saúl [phone] [address] PPO/POS [place] - OUT OF 7 [id number] [place] [address] documented as of this encounter Advance Directives Name Relationship Healthcare Agent Communication Relationship Sohail Valdez Spouse Primary healthcare agent
--- OUTSIDE RECORDS SUMMARY | 2020-01-02 10:53 | XMS REPORT | Summary of Care ---
:1995 Author Organization [facility] Address [address] [place] [address] Care Team Providers Name Role Phone Long Insurance Hmo Trevin Velez [facility] Primary Care Provider Encounter Details Date Type Department Care Team Description 11/10/2019 Orders Only [facility] Doctor Unassigned, No [address] [facility] [place] [address] [address] [place] [address] Allergies No Known Allergiesdocumented as of this encounter (statuses as of 11/11/2019) Medications Medication Sig Dispensed Refills Start Date [...] as of this encounter (statuses as of 11/11/2019) Active Problems Problem Noted Date Nexplanon insertion 11/10/2019 Situational depression 11/10/2019 Morbid obesity with body mass index of 40.0-49.9 10/20 Other depression 06/30/2018 History of IBS 03/17/2018 Polyp of colon, unspecified part of colon, unspecified type 07/08/2017 Tobacco use 11/01/2015 Gastroesophageal reflux disease without esophagitis documented as of this encounter (statuses as of 11/11/2019) Resolved Problems Problem Noted Date Resolved Date [...] as of this encounter (statuses as of 11/11/2019) Immunizations Name Administration Dates Next Due HPV9 [...] Treatment Date Type Specialty Care Team Description 11/29/2019 Office Visit [facility] Janeth Velez WHCNP [address] [place], [place] [address] [phone] 02/08/2020 Office Visit [facility] Janeth Velez WHCNP [address] [place], [place] [address] [phone] Health Maintenance Due Date Last Done Comments [...] Name Priority Date/Time Associated Diagnosis Comme nts CONSENT FOR CONTRACEPTION Routine 11/10/2019 12:01 AM CDT documented in this encounter Results Not on filedocumented in this encounter Insurance Payer Benefit Plan Subscriber ID Effective Dates Phone Address Type / Group BCBS OF [facility] [id number] 2015-Saúl [phone] [address] PPO/POS [place] - OUT OF t 7 [id number] [place] [address] documented as of this encounter Advance Directives Name Relationship Healthcare Agent Communication Relationship Sohail Valdez Spouse Primary healthcare agent
--- OUTSIDE RECORDS SUMMARY | 2020-01-02 10:53 | XMS REPORT | Summary of Care ---
:1997 Author Organization [facility] Address [address] [place] [address] Care Team Providers Name Role Phone Long Insurance Hmo Trevin Velez WHCNP Primary Care Provider Reason for Visit Reason Comments CONTROL Encounter Details Date Type Department Care Team Description [facility] Encounter for initial prescription of implantable subdermal contraceptive (Primary Dx); Sabi Martini C, WHCNP Nexplanon insertion; [address] Gastroesophageal reflux dise ase without esophagitis; [facility] Situational depression [phone] [facility] [phone] [place] [address] Allergies No Known Allergiesdocumented as [...] clinic in 2 weeks. Nexplanon Lot #: [id number] Year removal date: 10/2022 Patient palpated implant: [...] and ER warnings discussed, verbalized understanding. Nexplanon (lot:[id number] exp:12/14/2021)dispensed from clinic stock to provider for placement. PHQ9 Total score 18. Pt denies suicidal or homicidal ideation. Provider Celia notified. Mental health resource list provided. documented in this encounter Plan of Treatment Date Type Specialty Care Team Description 02/08/2020 Office Visit [facility] Janeth Velez WHCNP [address] [place], [place] [address] [phone] Health Maintenance Due Date Last Done Comments [...] 11/10/19 at 1630, Routine, Use approved by: SUPERVISOR FINISH END documented in this encounter Insurance Payer Benefit Plan Subscriber ID Effective Dates Phone Address Type / Group [facility] [id number] 2015-Saúl [phone] [address] PPO/POS [place] - OUT OF t 7 [id number] [place] [address] documented as of this encounter Advance Directives Name Relationship Healthcare Agent Communication Relationship Sohail Valdez Spouse Primary healthcare agent
--- OUTSIDE RECORDS SUMMARY | 2020-01-02 10:54 | XMS REPORT | Summary of Care ---
:1997 Author Organization [facility] Address [address] [place] [address] Care Team Providers Name Role Phone Long Insurance [facility]mo Trevin [facility]elez [facility] Primary Care Provider Reason for Visit Reason Comments NURSE ONLY Encounter Details Date Type Department Care Team Description 12/26/2019 Laboratory Only [facility] Unknown, Attending E xposure to [facility], [facility] SARS-associated [address] coronavirus (Primary [address] Dx) [place] [phone] Allergies No Known Allergiesdocumented as of this encounter (statuses as of 12/26/2019) Medications Medication Sig Dispensed Refills Start Date [...] as of this encounter (statuses as of 12/26/2019) Active Problems Problem Noted Date Nexplanon insertion 11/10/2019 Situational depression 11/10/2019 Morbid obesity with body mass index of 40.0-49.9 10/20 Other depression 06/30/2018 History of IBS 03/17/2018 Polyp of colon, unspecified part of colon, unspecified type 07/08/2017 Tobacco use 11/01/2015 Gastroesophageal reflux disease without esophagitis documented as of this encounter (statuses as of 12/26/2019) Resolved Problems Problem Noted Date Resolved Date [...] as of this encounter (statuses as of 12/26/2019) Immunizations Name Administration Dates Next Due HPV9 [...] [facility] Janeth Velez, CNP [address] [address] [phone] Name Type Priority Associated Diagnoses Order S chedule COVID-19 (PCR MOLECULAR LAB Routine Exposure to Expe cted: 12/26/2019, TESTING) SARS-associated Expires: 11/2020 coronavirus Health Maintenance Due Date Last Done Comments PNEUMOCOCCAL 0-64 YEARS 09/27/2003 COMBINED SERIES (1 of 1 - PPSV23) MENINGOCOCCAL B VACCINES (1 09/27/2007 of 2 - Risk Bexsero 2-dose series) HPV VACCINES (3 - Female 03/14/2019 11/11/2018, 07/08/2017 3-dose series) INFLUENZA VACCINE (#1) 2020 03/08/2018 CHLAMYDIA SCREENING 11/07/2020 11/08/2019, 01/21/2019, 09/29/2018, Additional history exists Depression Screening 11/09/2020 11/10/2019, 11/10/2019 PAP SMEAR 01/21/2022 01/21/2019 DTaP,Tdap,and Td Vaccines (2 08/05/2028 08/05/2018 - Td) MENINGOCOCCAL VACCINE Aged Out No longer eligible based on patient 's age to complete this topic documented as of this encounter Results Not on filedocumented in this encounter Visit Diagnoses Diagnosis Exposure to SARS-associated coronavirus - Primary documented in this encounter Insurance Payer Benefit Plan Subscriber ID Effective Dates Phone Address Type / Group [facility] [id number] 2015-Saúl [phone] [address] PPO/POS [place] - OUT OF 7 [id number] [place] [address] documented as of this encounter Advance Directives Name Relationship Healthcare Agent Communication Relationship Sohail Valdez Spouse Primary healthcare agent
--- OUTSIDE RECORDS SUMMARY | 2020-01-02 10:55 | XMS REPORT | Summary of Care ---
:1997 Author Organization [facility] Address [address] [place] [address] Care Team Providers Name Role Phone Long Insurance [facility] Provider Reason for Visit Reason Comments NURSE ONLY Encounter Details Date Type Department Care Team Description 12/26/2019 Laboratory Only [facility] Unknown, Attending E xposure to [facility] Nurse, [facility] SARS-associated [address] coronavirus (Primary [address] Dx) [place] [phone] Allergies No Known Allergiesdocumented as of this [...] [facility] Janeth Velez, CNP [address] [address] [phone] Name Type Priority Associated Diagnoses Order S [...] coronavirus - Primary documented in this encounter Additional Health Concerns Infection Onset Date Last Indicated Resolved Time COVID-19 Rule Out 12/26/2019 12/26/2019 documented as of this encounter Insurance Payer Benefit Plan Subscriber ID Effective Dates Phone Address Type / Group [facility] [id number] 2015-Saúl [phone] [address] PPO/POS [place] - OUT OF 7 [id number] [place] [address] documented as of this encounter Advance Directives Name Relationship Healthcare Agent Communication Relationship Sohail Valdez Spouse Primary healthcare agent
--- OUTSIDE RECORDS SUMMARY | 2020-01-02 10:55 | XMS REPORT | Summary of Care ---
:1995 Author Organization [facility] Address [address] [place] [address] Care Team Providers Name Role Phone Long Insurance Hmo Trevin [facility]ele[facility] Provider Encounter Details Date Type Department Care Team Description 12/28/2019 Letter (Out) [facility] Kellie Suazo, BOBBY [address] [place] [address] Allergies No Known Allergiesdocumented as of this encounter (statuses as of 12/28/2019) Medications Medication Sig Dispensed Refills Start Date [...] as of this encounter (statuses as of 12/28/2019) Active Problems Problem Noted Date Nexplanon insertion 11/10/2019 Situational depression 11/10/2019 Morbid obesity with body mass index of 40.0-49.9 10/20 Other depression 06/30/2018 History of IBS 03/17/2018 Polyp of colon, unspecified part of colon, unspecified type 07/08/2017 Tobacco use 11/01/2015 Gastroesophageal reflux disease without esophagitis documented as of this encounter (statuses as of 12/28/2019) Resolved Problems Problem Noted Date Resolved Date [...] as of this encounter (statuses as of 12/28/2019) Immunizations Name Administration Dates Next Due HPV9 [...] 02/08/2020 Office Visit [facility] Vele[facility], [facility] [address], [place] [address] [phone] Health Maintenance Due Date Last Done Comments [...] Results Not on filedocumented in this encounter Additional Health Concerns Infection Onset Date Last Indicated Resolved Time COVID-19 Rule Out 12/26/2019 12/26/2019 12/28/2019 12: 56 AM CDT documented as of this encounter Insurance Payer Benefit Plan Subscriber ID Effective Dates Phone Address Type / Group [facility] [id number] 2015-Saúl [phone] [address] PPO/POS [place] - OUT OF t [id number] [place] [address] documented as of this encounter Advance Directives Name Relationship Healthcare Agent Communication Relationship Sohail Valdez Spouse Primary healthcare agent
--- OUTSIDE RECORDS SUMMARY | 2020-01-02 10:55 | XMS REPORT | Summary of Care ---
:1995 Author Organization [facility] Address [address] [place] [id number] Care Team Providers Name Role Phone Long Insurance [facility]mo [facility]vin [facility] Reason for Visit Reason Comments Results Encounter Details Date Type Department Care Team Description 12/28/2019 Telephone ACCESS CENTER Kellie Suazo RN Results [address] [place] [address] Allergies No Known Allergiesdocumented as of [...] 02/08/2020 Office Visit [facility] Janeth Velez, [facility] [address], [place] [address] [phone] Health Maintenance Due Date Last Done Comments [...] Phone Address Type / Group [facility] [id number] 2015-Saúl [phone] [address] PPO/POS [place] - OUT OF 7 [id number] [place] [address] documented as of this encounter Advance Directives Name Relationship Healthcare Agent Communication Relationship Sohail Valdez Spouse Primary healthcare agent
--- NOTE | 2020-01-02 11:03 | RAD REPORT ---
EXAM DESCRIPTION: CT - Stone Protocol - 01/02/2020 10:49 am CLINICAL HISTORY: Abdominal pain. Flank pain COMPARISON: 2016 TECHNIQUE: Computed axial tomography of the abdomen pelvis was obtained without oral or IV contrast. Lack of IV and oral contrast limits evaluation of solid organs, bowel, and vessels. Coronal reformat ayala images were obtained and reviewed. All CT scans are performed using dose optimization technique as appropriate and may include automated exposure control or mA/KV adjustment according to patient size. FINDINGS: A renal calculus is not seen. An ureteral calculus is not noted. A bladder calculus is not present. Minimal right perirenal stranding The liver, spleen, pancreas and adrenals appear grossly normal There is no evidence of diverticulitis. The appendix appears normal A small umbilical hernia IMPRESSION: Negative for a genitourinary calculus Minimal right perirenal stranding is nonspecific but may indicate renal inflammation
[2020-01-02] MEDS ORDERED: MORPHINE 4 MG/ML SYR ONE (11:08)
[2020-01-02] MEDS ORDERED: ONDANSETRON 4 MG/2 ML VIAL ONE (11:08)
--- NOTE | 2020-01-02 11:32 | RAD REPORT ---
EXAM DESCRIPTION: [facility] Single View01/02/2020 10:57 am CLINICAL HISTORY: Cough COMPARISON: 2015 FINDINGS: The lungs appear clear of acute infiltrate. The heart is normal size IMPRESSION: No acute abnormalities displayed
--- NOTE | 2020-01-02 11:41 | ER ---
Nurse's Notes [facility] Name: Bijal Andrade Age: 24 yrs Sex: Female : 1995 Arrival Date: 01/02/2020 Time: 09:11 Bed 6 Private MD: Diagnosis: Acute tubulo-interstitial nephritis;Fever, unspecified;Elevated white blood cell count;Weakness Presentation: 01/01 09:27 Chief complaint: Patient states: "I tested positive for a UTI on october 27 and they put ss me on antibiotics. I got a little better, but now it's back and now i'm getting fevers and chills and have burning with urination.". Coronavirus screen: Proceed with normal triage. Patient denies a cough. Patient denies shortness of breath or difficulty breathing. Patient reports a measured and/or subjective temperature greater than 100.4F. Patient denies travel on a cruise ship or to a country the [facility] currently lists as an affected area. Patient denies contact with known and/or suspected case of COVID-19. Coronavirus screen: Prior COVID test collected on: 12/26/19 negative. Ebola Screen: Patient denies exposure to infectious person. Patient denies travel to an Ebola-affected area in the 21 days before illness onset. Initial Sepsis Screen: Does the patient meet any 2 criteria? Temp <36.0*C (96.8*F)) or > 38.3*C (100.9*F). HR > 90 bpm. Does the patient have a suspected source of infection? Yes: Dysuria/Frequency/Urgency/UTI. Risk Assessment: Do you want to hurt yourself or someone else? Patient reports no desire to harm self or others. Onset of symptoms was October 2019. 09:27 Method Of Arrival: Ambulatory 09:27 Acuity: JUANIS 2 ss Historical: - Allergies: 09:30 Tape; ss - PMHx: 09:30 Anemia; Depression; GERD; HYDRONEPHROSIS; Migraines; ss - Immunization history:: Adult Immunizations up to date. - Social history:: Smoking status: Patient reports the use of cigarette tobacco products, smokes two packs cigarettes per day. - Family history:: not pertinent. Screenin:17 Abuse screen: Denies threats or abuse. Denies injuries from another. Nutritional ph screening: No deficits noted. Tuberculosis screening: No symptoms or risk factors identified. Fall Risk None identified. Assessment: 10:15 General: Appears in no apparent distress. comfortable, well groomed, Behavior is calm, ph cooperative, appropriate for age, Reports chills for 12-24 hours, fever for. Pain: Complains of pain in right mid back and left mid back. Neuro: Level of Consciousness is awake, alert, obeys commands, Oriented to person, place, time, situation. Cardiovascular: Capillary refill < 3 seconds in bilateral fingers Patient's skin is warm and dry. Respiratory: Airway is patent Respiratory effort is even, unlabored, Respiratory pattern is regular, symmetrical. GI: Reports nausea, Patient currently denies abdominal pain, diarrhea, vomiting. : Reports pain in lower back. Derm: Skin is intact, is healthy with good turgor, Skin is pink, warm \\T\\ dry. Musculoskeletal: Circulation, motion, and sensation intact. Range of motion: intact in all extremities. 11:19 Reassessment: Patient appears in no apparent distress at this time. Patient and/or ph family updated on plan of care and expected duration. Pain level reassessed. Patient is alert, oriented x 3, equal unlabored respirations, skin warm/dry/pink. Vital Signs: 09:27 BP 127 / 73; Pulse 131; Resp 17; Temp 101.5(O); Pulse Ox 98% on R/A; Weight 90.26 kg ss (M); Height 5 ft. 5 in. (165.10 cm); Pain 7/10; 11:16 BP 120 / 76; Pulse 99; Resp 18; Temp 100.1; Pulse Ox 95% on R/A; ph 12:00 BP 118 / 78; Pulse 87; Resp 18; Temp 99.2; Pulse Ox 99% on R/A; ph 09:27 Body Mass Index 33.11 (90.26 kg, 165.10 cm) ED Course: 09:11 Patient arrived in ED. mr 09:26 Dieudonne Valdez MD is Attending Physician. [facility] 09:30 Triage completed. ss 09:30 Arm band placed on right wrist. ss 09:32 Alanna Wild, BOBBY is Primary Nurse. ph 09:40 Inserted saline lock: 20 gauge in right antecubital area, using aseptic technique. ss Blood collected. 10:49 CT Stone Protocol In Process Unspecified. EDMS 10:57 Chest Single View XRAY In Process Unspecified. EDMS 11:19 Patient has correct armband on for positive identification. Placed in gown. Bed in low ph position. Call light in reach. Side rails up X 1. Pulse ox on. NIBP on. Door closed. Noise minimized. Lights dimmed. 12:00 No provider procedures requiring assistance completed. IV discontinued, intact, ph bleeding controlled, No redness/swelling at site. Pressure dressing applied. Administered Medications: 10:12 Drug: Tylenol 1000 mg Route: PO; ph 11:30 Follow up: Response: No adverse reaction; Temperature is decreased ph 11:05 Drug: NS 0.9% 1000 ml Route: IV; Rate: 1 bolus; Site: right antecubital; ph 12:00 Follow up: Response: No adverse reaction; IV Status: Completed infusion; IV Intake: ph 1000ml 11:08 Drug: Zofran (Ondansetron) 4 mg Route: IVP; Site: right antecubital; ph 11:15 Follow up: Response: No adverse reaction ph 11:10 Drug: morphine 2 mg Route: IVP; Site: right antecubital; ph 11:15 Follow up: Response: No adverse reaction; Pain is decreased; RASS: Alert and Calm (0) ph 11:16 Drug: Rocephin 1 grams Route: IV; Rate: per protocol; Site: right antecubital; ph 11:30 Follow up: Response: No adverse reaction; IV Status: Completed infusion ph 11:42 Not Given (Other Intervention Used): NS 0.9% 1000 ml IV at 1 bolus Per protocol; 1000 ph mL bolus 11:42 Drug: morphine 2 mg Route: IVP; Site: right antecubital; ph 12:00 Follow up: Response: No adverse reaction; Pain is decreased; RASS: Alert and Calm (0) ph 11:57 Drug: LevOfloxacin 750 mg Route: PO; ph 12:00 Follow up: Response: No adverse reaction; Medication administered at discharge. ph Intake: 12:00 IV: 1000ml; Total: 1000ml. ph Outcome: 11:40 Discharge ordered by all 12:02 Patient left the ED. ph 12:02 Discharged to home ambulatory. ph 12:02 Condition: good 12:02 Discharge instructions given to patient, Instructed on discharge instructions, follow up and referral plans. medication usage, Demonstrated understanding of instructions, follow-up care, medications, Prescriptions given X 2. Addendum: 01/05/2020 07:30 Addendum: Culture Results: Positive urine culture. No further action required. Bacteria e b sensitive to prescribed antibiotic. Signatures: Dispatcher [employer] EDDieudonne Sanchez MD MD cha Rivera, Shira mr Johana Watts RN RN Alanna Marin RN RN Yas Niño
--- NOTE | 2020-01-02 11:41 | EDPHYS ---
Physician Documentation [facility] Name: Bijal Andrade Age: 24 yrs Sex: Female : 1995 Arrival Date: 01/02/2020 Time: 09:11 Bed 6 Private MD: ED Physician Dieudonne Valdez HPI: 01/01 10:17 This 24 yrs old Female presents to ER via Ambulatory with complaints of Back all Pain. 10:17 The patient presents with pain that is chronic, and an abrasion. The symptoms are all located in the left low back, left mid back, right mid back and right low back. Onset: The symptoms/episode began/occurred 3 day(s) ago. The pain does not radiate. Associated signs and symptoms: The patient has no apparent associated signs or symptoms. The problem was sustained from unknown cause. Modifying factors: The patient symptoms are alleviated by nothing, the patient symptoms are aggravated by any movement, supine position. Severity of symptoms: At their worst the symptoms were mild, in the emergency department the symptoms are actually worse. The patient has experienced similar episodes in the past, a few times. Historical: - Allergies: 09:30 Tape; ss - PMHx: 09:30 Anemia; Depression; GERD; HYDRONEPHROSIS; Migraines; ss - Immunization history:: Adult Immunizations up to date. - Social history:: Smoking status: Patient reports the use of cigarette tobacco products, smokes two packs cigarettes per day. - Family history:: not pertinent. ROS: 10:17 Constitutional: Negative for fever, chills, and weight loss, Eyes: Negative for injury, all pain, redness, and discharge, ENT: Negative for injury, pain, and discharge, Neck: Negative for injury, pain, and swelling, Respiratory: Negative for shortness of breath, cough, wheezing, and pleuritic chest pain, Abdomen/GI: Negative for abdominal pain, nausea, vomiting, diarrhea, and constipation, MS/Extremity: Negative for injury and deformity, Skin: Negative for injury, rash, and discoloration, Neuro: Negative for headache, weakness, numbness, tingling, and seizure, Psych: Negative for depression, anxiety, suicide ideation, homicidal ideation, and hallucinations, Allergy/Immunology: Negative for hives, rash, and allergies, Endocrine: Negative for neck swelling, polydipsia, polyuria, polyphagia, and marked weight changes, Hematologic/Lymphatic: Negative for swollen nodes, abnormal bleeding, and unusual bruising. 10:17 Cardiovascular: Positive for palpitations. 10:17 Abdomen/GI: Positive for nausea. 10:17 Back: Positive for injury or acute deformity, decreased range of motion, flank pain, bilaterally. 10:17 : Positive for urinary symptoms, urinary frequency, small amounts, burning with urination, difficulty urinating. Exam: 10:17 Head/Face: Normocephalic, atraumatic. Eyes: Pupils equal round and reactive to light, all extra-ocular motions intact. Lids and lashes normal. Conjunctiva and sclera are non-icteric and not injected. Cornea within normal limits. Periorbital areas with no swelling, redness, or edema. ENT: Nares patent. No nasal discharge, no septal abnormalities noted. Tympanic membranes are normal and external auditory canals are clear. Oropharynx with no redness, swelling, or masses, exudates, or evidence of obstruction, uvula midline. Mucous membranes moist. Neck: Trachea midline, no thyromegaly or masses palpated, and no cervical lymphadenopathy. Supple, full range of motion without nuchal rigidity, or vertebral point tenderness. No Meningismus. Chest/axilla: Normal chest wall appearance and motion. Nontender with no deformity. No lesions are appreciated. Respiratory: Lungs have equal breath sounds bilaterally, clear to auscultation and percussion. No rales, rhonchi or wheezes noted. No increased work of breathing, no retractions or nasal flaring. Abdomen/GI: Soft, non-tender, with normal bowel sounds. No distension or tympany. No guarding or rebound. No evidence of tenderness throughout. Pelvic Exam: Normal external genitalia. Speculum exam with closed cervical os, no discharge or bleeding noted. Bimanual exam with normal adnexa, no adnexal or cervical motion tenderness. Normal uterus. Skin: Warm, dry with normal turgor. Normal color with no rashes, no lesions, and no evidence of cellulitis. MS/ Extremity: Pulses equal, no cyanosis. Neurovascular intact. Full, normal range of motion. Neuro: Awake and alert, GCS 15, oriented to person, place, time, and situation. Cranial nerves II-XII grossly intact. Motor strength 5/5 in all extremities. Sensory grossly intact. Cerebellar exam normal. Normal gait. 10:17 Cardiovascular: Rate: tachycardic, Rhythm: regular, Pulses: Pulses are 4+ in bilateral radial, brachial, femoral, popliteal, posterior tibial and and dorsalis pedis arteries.. Edema: is not appreciated, JVD: is not appreciated. 10:17 Abdomen/GI: Inspection: abdomen appears normal, Bowel sounds: normal, Palpation: abdomen is soft and non-tender, soft, Liver: no appreciated palpable abnormalities, Hernia: not appreciated. 10:17 Back: pain, that is moderate, ROM is normal, normal spinal alignment noted, CVA tenderness, that is mild, muscle spasm, is not present. Vital Signs: 09:27 BP 127 / 73; Pulse 131; Resp 17; Temp 101.5(O); Pulse Ox 98% on R/A; Weight 90.26 kg ss (M); Height 5 ft. 5 in. (165.10 cm); Pain 7/10; 11:16 BP 120 / 76; Pulse 99; Resp 18; Temp 100.1; Pulse Ox 95% on R/A; ph 12:00 BP 118 / 78; Pulse 87; Resp 18; Temp 99.2; Pulse Ox 99% on R/A; ph 09:27 Body Mass Index 33.11 (90.26 kg, 165.10 cm) ss MDM: 09:26 Patient medically screened. [facility] 10:49 Data reviewed: vital signs, nurses notes, lab test result(s), radiologic studies, plain all films. 10:51 Differential diagnosis: Cholelithiasis Pyelonephritis Ureterolithiasis. 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 Test interpretation: by ED physician or midlevel provider: ECG, plain radiologic studies. Counseling: I had a detailed discussion with the patient and/or guardian regarding: the historical points, exam findings, and any diagnostic results supporting the discharge/admit diagnosis, the presence of at least one elevated blood pressure reading (>120/80) during this emergency department visit, lab results, radiology results. 11:38 ED course: pt much improved, right pyelo noted on ct, pt non toxic, will treat as out all pt and close follow up. 01/01 09:40 Order name: Urine Culture em1 01/01 09:40 Order name: Urine Microscopic Only; Complete Time: 10:57 [facility] 01/01 09:41 Order name: Urine Dipstick--Ancillary (enter results); Complete Time: 10:16 [facility] 01/01 09:43 Order name: Test, Serum; Complete Time: 10:57 [facility] 01/01 09:51 Order name: Blood Culture Adult (2) 01/01 09:51 Order name: Lactate; Complete Time: 10:57 01/01 09:51 Order name: CBC with Diff; Complete Time: 10:16 01/01 09:51 Order name: Basic Metabolic Panel; Complete Time: 10:57 01/01 10:16 Order name: LFT's; Complete Time: 10:57 [facility] 01/01 10:16 Order name: Lipase; Complete Time: 10:57 [facility] 01/01 10:16 Order name: CT Stone Protocol; Complete Time: 11:36 [facility] 01/01 10:17 Order name: Chest Single View XRAY; Complete Time: 11:36 [facility] Administered Medications: 10:12 Drug: Tylenol 1000 mg Route: PO; ph 11:30 Follow up: Response: No adverse reaction; Temperature is decreased ph 11:05 Drug: NS 0.9% 1000 ml Route: IV; Rate: 1 bolus; Site: right antecubital; ph 12:00 Follow up: Response: No adverse reaction; IV Status: Completed infusion; IV Intake: ph 1000ml 11:08 Drug: Zofran (Ondansetron) 4 mg Route: IVP; Site: right antecubital; ph 11:15 Follow up: Response: No adverse reaction ph 11:10 Drug: morphine 2 mg Route: IVP; Site: right antecubital; ph 11:15 Follow up: Response: No adverse reaction; Pain is decreased; RASS: Alert and Calm (0) ph 11:16 Drug: Rocephin 1 grams Route: IV; Rate: per protocol; Site: right antecubital; ph 11:30 Follow up: Response: No adverse reaction; IV Status: Completed infusion ph 11:42 Not Given (Other Intervention Used): NS 0.9% 1000 ml IV at 1 bolus Per protocol; 1000 ph mL bolus 11:42 Drug: morphine 2 mg Route: IVP; Site: right antecubital; ph 12:00 Follow up: Response: No adverse reaction; Pain is decreased; RASS: Alert and Calm (0) ph 11:57 Drug: LevOfloxacin 750 mg Route: PO; ph 12:00 Follow up: Response: No adverse reaction; Medication administered at discharge. ph Disposition: 01/02/20 11:40 Discharged to Home. Impression: Acute tubulo-interstitial nephritis, Fever, unspecified, Elevated white blood cell count, Weakness. - Condition is Stable. - Discharge Instructions: Fever, Adult, Pyelonephritis, Adult, Pyelonephritis, Adult, [id number], Weakness, Weakness, [id number], Fever, Adult, [id number]. - Prescriptions for Levaquin 500 mg Oral Tablet - take 1 tablet by ORAL route once daily for 8-10 days; 9 tablet. Zofran 4 mg Oral Tablet - take 1 tablet by ORAL route every 12 hours As needed; 14 tablet. - Medication Reconciliation Form, Thank You Letter, Antibiotic Education, Prescription Opioid Use, Work release form form. - Follow up: Private Physician; When: 2 - 3 days; Reason: Recheck today's complaints, Continuance of care, Re-evaluation by your physician. - Problem is new. - Symptoms have improved. Signatures: Dispatcher [employer] EDMI Dieudonne Valdez MD MD cha Smirch, Shelby, RN RN Alanna Wild RN RN Corrections: (The following items were deleted from the chart) 12:02 11:40 01/02/2020 11:40 Discharged to Home. Impression: Acute tubulo-interstitial ph nephritis; Fever, unspecified; Elevated white blood cell count; Weakness. Condition is Stable. Forms are Medication Reconciliation Form, Thank You Letter, Antibiotic Education, Prescription Opioid Use. Follow up: Private Physician; When: 2 - 3 days; Reason: Recheck today's complaints, Continuance of care, Re-evaluation by your physician. Problem is new. Symptoms have improved. all
[2020-01-02] MEDS ORDERED: levoFLOXacin 750 MG TAB ONE (12:01)
[2020-01-02 12:12] VITALS: BP 120/76; TEMP 100.1; O2SAT 95
== END 2020-01-02 12:02 | disposition home or self-care (01) ==
LOC: ER 09:07
DX: N10 Acute pyelonephritis (principal); D72.829 Elevated white blood cell count, unspecified; R53.1 Weakness; F17.210 Nicotine dependence, cigarettes, uncomplicated; Z91.048 Other nonmedicinal substance allergy status
CPT/HCPCS: 96361; 87040 ×2; 87088; 85025; 87086; 80048; 36415; 84703; 80076; 83605; 87077; 87186; 83690; 76377; 74176; 71045; 96375; 96374; 99284; J0696; J7030; J2405; 81003; 81015

== ENCOUNTER 2020-03-21 08:49 | Emergency (ER) | payer BC ==
--- NOTE | 2020-03-21 09:23 | ER ---
Nurse's Notes [facility] Name: Bijal Andrade Age: 24 yrs Sex: Female : 1995 Arrival Date: 03/21/2020 Time: 08:52 Bed 5 Private MD: Diagnosis: Acute pharyngitis Presentation: 03/21 09:02 Chief complaint: Patient states: R ear pain and sore throat that began yesterday ss morning. Coronavirus screen: Client denies travel out of the [place] in the last 14 days. Ebola Screen: Patient denies exposure to infectious person. Patient denies travel to an Ebola-affected area in the 21 days before illness onset. Initial Sepsis Screen: Does the patient meet any 2 criteria? No. Patient's initial sepsis screen is negative. Does the patient have a suspected source of infection? No. Patient's initial sepsis screen is negative. Risk Assessment: Do you want to hurt yourself or someone else? Patient reports no desire to harm self or others. Onset of symptoms was March 20, 2020. 09:02 Method Of Arrival: Ambulatory ss 09:02 Acuity: JUANIS 4 ss Historical: - Allergies: 09:05 bandaids; ss 09:05 Tape; ss - Home Meds: 09:05 Nexium 40 mg Oral cpDR 1 cap once daily [Active]; ss - PMHx: 09:05 Anemia; Depression; GERD; HYDRONEPHROSIS; Migraines; ss - PSHx: 09:05 None; ss - Immunization history:: Adult Immunizations up to date. - Social history:: Smoking status: Patient denies any tobacco usage or history of. Screenin:00 Abuse screen: Denies threats or abuse. Denies injuries from another. Nutritional sv screening: No deficits noted. Tuberculosis screening: No symptoms or risk factors identified. Fall Risk None identified. Assessment: 09:15 General: Appears in no apparent distress. comfortable, well developed, Behavior is sv calm, cooperative, appropriate for age. Pain: Complains of pain in left aspect of posterior pharynx and right aspect of posterior pharynx. Neuro: Level of Consciousness is awake, alert, obeys commands, Oriented to person, place, time, situation, Moves all extremities. Full function. Respiratory: Airway is patent Respiratory effort is even, unlabored, Respiratory pattern is regular, symmetrical. EENT: Reports pain in left aspect of posterior pharynx and right aspect of posterior pharynx. Derm: Skin is pink, warm \T\ dry. 09:32 Reassessment: Waiting IM shot time before discharge. sv Vital Signs: 09:02 BP 94 / 75; Pulse 94; Resp 15; Temp 98.7(TE); Pulse Ox 100% on R/A; Weight 89.81 kg; ss Height 5 ft. 5 in. (165.10 cm); Pain 4/10; 09:02 Body Mass Index 32.95 (89.81 kg, 165.10 cm) ED Course: 08:52 Patient arrived in ED. mr 08:59 [facility] 08:59 Usman Tsai MD is Attending Physician. [facility] 08:59 Prerna Lyn, BOBBY is Primary Nurse. sv 09:00 Arm band placed on. sv 09:00 Patient has correct armband on for positive identification. Bed in low position. Call sv light in reach. Pulse ox on. NIBP on. Door closed. Head of bed elevated. 09:03 Triage completed. ss 09:30 Strep Sent. vg1 09:33 No provider procedures requiring assistance completed. Patient did not have IV access sv during this emergency room visit. Administered Medications: 09:20 Drug: Bicillin L-A 1.2 million units Route: IM; Site: right gluteus; vg1 09:38 Follow up: Response: No adverse reaction vg1 Outcome: 09:23 Discharge ordered by . [facility] 09:39 Patient left the ED. vg1 09:39 Discharged to home ambulatory. sv 09:39 Condition: stable 09:39 Discharge instructions given to patient, Instructed on discharge instructions, follow up and referral plans. Demonstrated understanding of instructions, follow-up care. Signatures: Prerna Lyn, BOBBY RN Jorge Darden PA PA jmm Rivera, Mary mr Smirch, Shelby, RN RN ss Garcia, Victoria, RN RN vg1
--- NOTE | 2020-03-21 09:24 | EDPHYS ---
Physician Documentation [facility] Name: Bijal Andrade Age: 24 yrs Sex: Female : 1995 Arrival Date: 03/21/2020 Time: 08:52 Bed 5 Private MD: ED Physician Usman Tsai HPI: 03/21 09:18 This 24 yrs old Female presents to ER via Ambulatory with complaints of Sore jmm Throat. 09:18 The patient presents with sore throat. Onset: The symptoms/episode began/occurred jmm gradually, 1 day(s) ago. Modifying factors: The symptoms are alleviated by nothing, the symptoms are aggravated by nothing. Associated signs and symptoms: Pertinent positives: earache. The patient has not experienced similar symptoms in the past. Historical: - Allergies: 09:05 bandaids; ss 09:05 Tape; ss - Home Meds: 09:05 Nexium 40 mg Oral cpDR 1 cap once daily [Active]; ss - PMHx: 09:05 Anemia; Depression; GERD; HYDRONEPHROSIS; Migraines; ss - PSHx: 09:05 None; ss - Immunization history:: Adult Immunizations up to date. - Social history:: Smoking status: Patient denies any tobacco usage or history of. ROS: 09:18 Constitutional: Positive for chills. jmm 09:18 ENT: Positive for sore throat. 09:18 All other systems are negative. Exam: 09:18 Constitutional: This is a well developed, well nourished patient who is awake, alert, jmm and in no acute distress. Head/Face: atraumatic. Eyes: EOMI, no conjunctival erythema appreciated 09:18 Chest/axilla: Normal chest wall appearance and motion. Cardiovascular: Regular rate and rhythm. No edema appreciated Respiratory: Normal respirations, no respiratory distress appreciated Abdomen/GI: Non distended, soft Back: Normal ROM Skin: General appearance color normal MS/ Extremity: Moves all extremities, no obvious deformities appreciated, no edema noted to the lower extremities Neuro: Awake and alert, normal gait Psych: Behavior is normal, Mood is normal, Patient is cooperative and pleasant 09:18 ENT: Posterior pharynx: Uvula: midline, erythema, that is moderate, exudate, that is moderate, peritonsillar mass, is not appreciated. Vital Signs: 09:02 BP 94 / 75; Pulse 94; Resp 15; Temp 98.7(TE); Pulse Ox 100% on R/A; Weight 89.81 kg; ss Height 5 ft. 5 in. (165.10 cm); Pain 4/10; 09:02 Body Mass Index 32.95 (89.81 kg, 165.10 cm) ss MDM: 09:02 Patient medically screened. [facility] 09:20 Data reviewed: vital signs, nurses notes. Counseling: I had a detailed discussion with juany the patient and/or guardian regarding: the historical points, exam findings, and any diagnostic results supporting the discharge/admit diagnosis, the need for outpatient follow up, to return to the emergency department if symptoms worsen or persist or if there are any questions or concerns that arise at home. ED course: Patient is alert and non toxic in appearance in the ED. PE findings consistent with strep pharyngitis. 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 Patient understood and agrees with the plan of care. . 03/21 09:07 Order name: Strep; Complete Time: 09:35 [facility] 03/21 09:34 Order name: Throat Culture EDMS Administered Medications: 09:20 Drug: Bicillin L-A 1.2 million units Route: IM; Site: right gluteus; vg1 09:38 Follow up: Response: No adverse reaction vg1 Disposition: 11:49 Co-signature as Attending Physician, Usman Tsai MD I agree with the assessment and kdr plan of care. Disposition: 03/21/20 09:23 Discharged to Home. Impression: Acute pharyngitis. - Condition is Stable. - Discharge Instructions: Pharyngitis. - Medication Reconciliation Form, Thank You Letter, Antibiotic Education, Prescription Opioid Use, Work release form form. - Follow up: Private Physician; When: 2 - 3 days; Reason: Recheck today's complaints, Continuance of care, Re-evaluation by your physician. Signatures: Dispatcher [employer] EDMS Usman Tsai MD MD kdr Mickail, Joel, PA PA jmm Smirch, Shelby, RN RN ss Garcia, Victoria, RN RN vg1 Corrections: (The following items were deleted from the chart) 09:39 09:23 03/21/2020 09:23 Discharged to Home. Impression: Acute pharyngitis. Condition is vg1 Stable. Forms are Medication Reconciliation Form, Thank You Letter, Antibiotic Education, Prescription Opioid Use. Follow up: Private Physician; When: 2 - 3 days; Reason: Recheck today's complaints, Continuance of care, Re-evaluation by your physician. juany
[2020-03-21] MEDS ORDERED: PEN G BENZ LA 1.2MU/2ML SYRINGE IM ONE (09:28)
--- OUTSIDE RECORDS SUMMARY | 2020-03-21 09:50 | XMS REPORT | Continuity of Care Document ---
:1995 Author Organization [facility] t Address [address] [place] [address] Care Team Providers Name Role Phone Gabriele RN Attending Clinician Unavailable Care, Adult Urgent Attending Clinician Unavailable Nurse, Urgent Attending Clinician [...] Facility Department ID 2019-12-28 2019-12-28 Telephone Kellie [id number] 00:00:00 00:00:00 [place] [id number] [id number] 2019-12-28 2019-12-28 Letter Kellie Suazo [id number] 00:00:00 00:00:00 (Out) [place] [id number] [facility] [id number] [id number] 2019-12-28 2019-12-28 Telephone Hector [id number] 00:00:00 00:00:00 Adult SANDY [id number] Urgent [facility] [id number] 2019-12-26 2019-12-26 Laboratory NurseHector [id number] 16:11:45 16:48:51 Only Urgent HEALTH [id number] [place] [id number] [place] [address] [id number] Primary & 370 Specialty Care Results This patient has no known results.
--- OUTSIDE RECORDS SUMMARY | 2020-03-21 09:52 | XMS REPORT | Summary of Care ---
:1995 Author Organization [facility] Address [address] [place] [address] Care Team Providers Name Role Phone Long Insurance Hmo Trevin Velez [facility] Reason for Visit Reason Comments Results Patient received succesfull text message for negative result Encounter Details Date Type Department Care Team Description 12/28/2019 [facility] (Patient [address] Urgent received succ esfull [place] text message for [place], [place] negative resul t) [id number] Allergies No Known Allergiesdocumented as of this encounter (statuses as of 01/05/2020) Medications Medication Sig Dispensed Refills Start Date [...] as of this encounter (statuses as of 01/05/2020) Active Problems Problem Noted Date Nexplanon insertion 11/10/2019 Situational depression 11/10/2019 Morbid obesity with body mass index of 40.0-49.9 10/20 Other depression 06/30/2018 History of IBS 03/17/2018 Polyp of colon, unspecified part of colon, unspecified type 07/08/2017 Tobacco use 11/01/2015 Gastroesophageal reflux disease without esophagitis documented as of this encounter (statuses as of 01/05/2020) Resolved Problems Problem Noted Date Resolved Date [...] as of this encounter (statuses as of 01/05/2020) Immunizations Name Administration Dates Next Due HPV9 [...] 02/08/2020 Office Visit [facility] Jan[facility] Velez, [facility] [address] [id number] 15 [phone] Health Maintenance Due Date Last Done Comments [...] Dates Phone Address Type / Group BCBS [facility] [id number] 2015-Saúl [phone] [address] PPO/POS [place] - OUT OF t 7 [id number] [place] [address] documented as of this encounter Advance Directives Name Relationship Healthcare Agent Communication Relationship Sohail Valdez Spouse Primary healthcare agent
[2020-03-21 10:13] VITALS: BP 94/75; TEMP 98.7; O2SAT 100
== END 2020-03-21 09:39 | disposition home or self-care (01) ==
LOC: ER 08:49
DX: J02.9 Acute pharyngitis, unspecified (principal); K21.9 Gastro-esophageal reflux disease without esophagitis; Z91.048 Other nonmedicinal substance allergy status
CPT/HCPCS: 87070; 87081; 96372; 99284; J0561

== ENCOUNTER 2020-03-23 16:14 | Emergency (ER) | payer BC ==
--- NOTE | 2020-03-23 18:13 | RAD REPORT ---
EXAM DESCRIPTION: RAD - Ankle Left 3 View -03/23/2020 5:31 pm CLINICAL HISTORY: Left ankle pain status post injury FINDINGS: No fracture or dislocation is seen.
--- NOTE | 2020-03-23 18:15 | RAD REPORT ---
EXAM DESCRIPTION: RAD - Foot Left 2 View - 03/23/2020 5:31 pm CLINICAL HISTORY: Left Foot pain FINDINGS: No fracture or dislocation is seen.
--- NOTE | 2020-03-23 18:18 | ER ---
Nurse's Notes [facility] Name: Bijal Andrade Age: 24 yrs Sex: Female : 1995 Arrival Date: 03/23/2020 Time: 16:16 Bed 13 Private MD: Diagnosis: Sprain of foot Presentation: 03/23 16:40 Chief complaint: Patient states: "I rolled my ankle last night while I was drunk and jd3 didn't notice it till today. it hurts to walk on it, but it hurts even without using it.". Coronavirus screen: At this time, the client does not indicate any symptoms associated with coronavirus-19. Ebola Screen: Patient negative for fever greater than or equal to 101.5 degrees Fahrenheit, and additional compatible Ebola Virus Disease symptoms. Initial Sepsis Screen: Does the patient meet any 2 criteria? No. Patient's initial sepsis screen is negative. Does the patient have a suspected source of infection? No. Patient's initial sepsis screen is negative. Risk Assessment: Do you want to hurt yourself or someone else? Patient reports no desire to harm self or others. Onset of symptoms was March 23, 2020. 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 - Social history:: Smoking status: Patient reports the use of cigarette tobacco products, smokes one pack cigarettes per day. Screenin:25 Abuse screen: Denies threats or abuse. Denies injuries from another. Nutritional ca1 screening: No deficits noted. Tuberculosis screening: No symptoms or risk factors identified. Fall Risk None identified. Assessment: 17:25 General: Appears in no apparent distress. comfortable, Behavior is calm, cooperative, ca1 appropriate for age. Pain: Complains of pain in left foot and dorsum of left foot Pain currently is 3 out of 10 on a pain scale. Neuro: Level of Consciousness is awake, alert, obeys commands, Oriented to person, place, time, situation. Derm: Skin is intact, is healthy with good turgor, Skin is pink, warm \\T\\ dry. Derm: Bruising that is dark purple, on dorsum of left foot. Musculoskeletal: Circulation, motion, and sensation intact. Capillary refill < 3 seconds. Vital Signs: 16:43 BP 133 / 77; Pulse 109; Resp 16 S; Temp 98.0(A); Pulse Ox 99% on R/A; Weight 89.81 kg jd3 (R); Height 5 ft. 5 in. (165.10 cm) (R); Pain 5/10; 17:40 BP 111 / 72; Pulse 94; Resp 15 S; Pulse Ox 97% ; ca1 18:46 BP 125 / 67; Pulse 84; Resp 16 S; Pulse Ox 98% on R/A; ca1 16:43 Body Mass Index 32.95 (89.81 kg, 165.10 cm) jd3 ED Course: 16:16 Patient arrived in ED. as 16:41 Bre Nuñez FNP-C is PHCP. snw 16:41 Dariusz Bee MD is Attending Physician. snw 16:42 Triage completed. jd3 16:43 Arm band placed on. jd3 17:24 Shazia Kamara, RN is Primary Nurse. ca1 17:25 Patient has correct armband on for positive identification. Bed in low position. Call ca1 light in reach. Side rails up X 1. Pulse ox on. NIBP on. Warm blanket given. 17:31 XRAY Ankle LEFT 3 view In Process Unspecified. EDMS 17:31 XRAY Foot LEFT 2 View In Process Unspecified. EDMS 18:47 No provider procedures requiring assistance completed. Patient did not have IV access ca1 during this emergency room visit. Skyler wrap to left ankle Ortho shoe applied to left foot. Administered Medications: 18:00 Drug: UltRAM 25 mg {Note: rass 0.} Route: PO; ca1 18:47 Follow up: Response: No adverse reaction; Pain is decreased; RASS: Alert and Calm (0) ca1 Outcome: 18:18 Discharge ordered by . snw 18:47 Discharged to home ambulatory. ca1 18:47 Condition: stable 18:47 Discharge instructions given to patient, Instructed on discharge instructions, follow up and referral plans. medication usage, Demonstrated understanding of instructions, follow-up care, medications, Prescriptions given X 1. 18:48 Patient left the ED. ca1 Signatures: Dispatcher [employer] EDMS Bre Nuñez, TIP FINISHER-C TIP FINISHER-Csnw Mara Hewitt Jonathon RN RN jd3 Shazia Kamara RN RN ca1
--- NOTE | 2020-03-23 18:19 | EDPHYS ---
Physician Documentation [facility] Name: Bijal Andrade Age: 24 yrs Sex: Female : 1995 Arrival Date: 03/23/2020 Time: 16:16 Bed 13 Private MD: ED Physician Dariusz Bee HPI: 03/23 17:55 This 24 yrs old Female presents to ER via Ambulatory with complaints of Ankle snw Injury. 17:55 The patient presents with pain, that is acute. The complaints affect the left ankle, snw dorsum of left foot. Onset: The symptoms/episode began/occurred suddenly, this morning. Context: The problem was sustained outdoors, resulted from a mis-step by the patient, The mechanism of injury involved inversion of the affected ankle. The patient can partially bear weight on the affected extremity. the patient is able to ambulate. Associated signs and symptoms: The patient has no apparent associated signs or symptoms. Severity of symptoms: At their worst the symptoms were mild, moderate. The patient has not experienced similar symptoms in the past. It is unknown whether or not the patient has recently seen a physician. 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 - Social history:: Smoking status: Patient reports the use of cigarette tobacco products, smokes one pack cigarettes per day. ROS: 17:55 Constitutional: Negative for fever, chills, and weight loss, Eyes: Negative for injury, snw pain, redness, and discharge, ENT: Negative for injury, pain, and discharge, Neck: Negative for injury, pain, and swelling, Cardiovascular: Negative for chest pain, palpitations, and edema, Respiratory: Negative for shortness of breath, cough, wheezing, and pleuritic chest pain, Abdomen/GI: Negative for abdominal pain, nausea, vomiting, diarrhea, and constipation, Back: Negative for injury and pain, : Negative for injury, bleeding, discharge, and swelling, Skin: Negative for injury, rash, and discoloration, Neuro: Negative for headache, weakness, numbness, tingling, and seizure, Psych: Negative for depression, anxiety, suicide ideation, homicidal ideation, and hallucinations. 17:55 MS/extremity: Positive for injury or acute deformity, pain, swelling, tenderness, of the dorsum of left foot. Exam: 17:54 Constitutional: This is a well developed, well nourished patient who is awake, alert, snw and in no acute distress. Head/Face: Normocephalic, atraumatic. Eyes: Pupils equal round and reactive to light, extra-ocular motions intact. Lids and lashes normal. Conjunctiva and sclera are non-icteric and not injected. Cornea within normal limits. Periorbital areas with no swelling, redness, or edema. ENT: Nares patent. No nasal discharge, no septal abnormalities noted. Tympanic membranes are normal and external auditory canals are clear. Oropharynx with no redness, swelling, or masses, exudates, or evidence of obstruction, uvula midline. Mucous membranes moist. Neck: Trachea midline, no thyromegaly or masses palpated, and no cervical lymphadenopathy. Supple, full range of motion without nuchal rigidity, or vertebral point tenderness. No Meningismus. Chest/axilla: Normal chest wall appearance and motion. Nontender with no deformity. No lesions are appreciated. Cardiovascular: Regular rate and rhythm with a normal S1 and S2. No gallops, murmurs, or rubs. Normal PMI, no JVD. No pulse deficits. Respiratory: Lungs have equal breath sounds bilaterally, clear to auscultation and percussion. No rales, rhonchi or wheezes noted. No increased work of breathing, no retractions or nasal flaring. Abdomen/GI: Soft, non-tender, with normal bowel sounds. No distension or tympany. No guarding or rebound. No evidence of tenderness throughout. Back: No spinal tenderness. No costovertebral tenderness. Full range of motion. Skin: Warm, dry with normal turgor. Normal color with no rashes, no lesions, and no evidence of cellulitis. Neuro: Awake and alert, GCS 15, oriented to person, place, time, and situation. Cranial nerves II-XII grossly intact. Motor strength 5/5 in all extremities. Sensory grossly intact. Cerebellar exam normal. Normal gait. Psych: Awake, alert, with orientation to person, place and time. Behavior, mood, and affect are within normal limits. 17:54 Musculoskeletal/extremity: Extremities: grossly normal except: noted in the dorsum of left foot: swelling, tenderness, Circulation is intact in all extremities. Sensation intact. Vital Signs: 16:43 BP 133 / 77; Pulse 109; Resp 16 S; Temp 98.0(A); Pulse Ox 99% on R/A; Weight 89.81 kg jd3 (R); Height 5 ft. 5 in. (165.10 cm) (R); Pain 5/10; 17:40 BP 111 / 72; Pulse 94; Resp 15 S; Pulse Ox 97% ; ca1 18:46 BP 125 / 67; Pulse 84; Resp 16 S; Pulse Ox 98% on R/A; ca1 16:43 Body Mass Index 32.95 (89.81 kg, 165.10 cm) jd3 MDM: 17:37 Patient medically screened. snw 18:20 Data reviewed: vital signs, nurses notes. Data interpreted: Pulse oximetry: on room air snw is 99 %. Interpretation: normal. Counseling: I had a detailed discussion with the patient and/or guardian regarding: the historical points, exam findings, and any diagnostic results supporting the discharge/admit diagnosis, radiology results, the need for outpatient follow up, to return to the emergency department if symptoms worsen or persist or if there are any questions or concerns that arise at home. Special discussion: Based on the history and exam findings, there is no indication for further emergent testing or inpatient evaluation. I discussed with the patient/guardian the need to see the orthopedic surgeon for further evaluation of the symptoms. I discussed with the patient/guardian the need to see the primary care provider for further evaluation of the symptoms. 03/23 16:47 Order name: XRAY Ankle LEFT 3 view; Complete Time: 18:13 jd3 03/23 16:47 Order name: XRAY Foot LEFT 2 View; Complete Time: 18:17 jd3 03/23 17:54 Order name: Skyler wrap-joint; Complete Time: 17:57 snw 03/23 17:54 Order name: Post-op shoe; Complete Time: 17:57 snw Administered Medications: 18:00 Drug: UltRAM 25 mg {Note: rass 0.} Route: PO; ca1 18:47 Follow up: Response: No adverse reaction; Pain is decreased; RASS: Alert and Calm (0) ca1 Disposition: 18:49 Co-signature as Attending Physician, Dariusz Bee MD. Chart complete. rn Disposition: 03/23/20 18:18 Discharged to Home. Impression: Sprain of foot. - Condition is Stable. - Discharge Instructions: Elastic Bandage and RICE, Crutch Use, Foot Sprain. - Prescriptions for Diclofenac Sodium 75 mg Oral Tablet Sustained Release - take 1 tablet by ORAL route 2 times per day; 30 tablet. - Work release form, Medication Reconciliation Form, Thank You Letter, Antibiotic Education, Prescription Opioid Use form. - Follow up: Private Physician; When: 2 - 3 days; Reason: Recheck today's complaints, Continuance of care, Re-evaluation by your physician. Signatures: Dispatcher [employer] EDMS Bre Nuñez, NAIL MAKING MACHINE TENDER-C NAIL MAKING MACHINE TENDER-Csnw Dariusz Bee MD MD rn Davies, Jonathon, RN RN jShazia Conn RN RN ca1 Corrections: (The following items were deleted from the chart) 18:48 18:18 03/23/2020 18:18 Discharged to Home. Impression: Sprain of foot. Condition is ca1 Stable. Forms are Medication Reconciliation Form, Thank You Letter, Antibiotic Education, Prescription Opioid Use. Follow up: Private Physician; When: 2 - 3 days; Reason: Recheck today's complaints, Continuance of care, Re-evaluation by your physician. snw
[2020-03-23] MEDS ORDERED: TRAMADOL HCL 50 MG TAB ONE (18:50)
[2020-03-23 19:02] VITALS: TEMP 98
[2020-03-23 19:05] VITALS: BP 125/67; O2SAT 98
--- OUTSIDE RECORDS SUMMARY | 2020-03-28 21:07 | XMS REPORT | Continuity of Care Document ---
:1995 Author Organization [facility] t Address [address] [place] [address] Care Team Providers Name Role Phone Gabriele [...] 2019-12-28 2019-12-28 Telephone Kellie Suazo [id number] 00:00:00 00:00:00 [place] [id number] [place] [phone] [id number] 2019-12-28 2019-12-28 Letter Kellie Suazo [id number] 00:00:00 00:00:00 (Out) SANDY [id number] [facility] [id number] 2019-12-28 2019-12-28 Telephone Hector [id number] 00:00:00 00:00:00 Adult SANDY [id number] [facility] [id number] 2019-12-26 2019-12-26 Laboratory NurseHector [id number] 16:11:45 16:48:51 Only Urgent HEALTH [id number] [place] [id number] [place] [phone] Primary & 370 Specialty Care Results This patient has no known results.
== END 2020-03-23 18:48 | disposition home or self-care (01) ==
LOC: ER 16:14
DX: S93.602A Unspecified sprain of left foot, initial encounter (principal); X58.XXXA Exposure to other specified factors, initial encounter; Y93.89 Activity, other specified; Y92.9 Unspecified place or not applicable; Z91.048 Other nonmedicinal substance allergy status
CPT/HCPCS: 99284

== ENCOUNTER 2020-05-27 15:31 | Emergency (ER) | payer BC ==
--- NOTE | 2020-05-27 18:07 | ER ---
Nurse's Notes [facility] Name: Bijal Andrade Age: 24 yrs Sex: Female : 1995 Arrival Date: 05/27/2020 Time: 15:34 Bed 24 Private MD: Diagnosis: Superficial foreign body of breast, right breast-body piercing reaction;Bronchitis, not specified as acute or chronic Presentation: 05/27 16:30 Chief complaint: Patient states: Cough x 3 weeks, getting worse. R nipple abscess after ca1 a nipple piercing done on 05/04, abscess noticed since last night. Bleeding gums started last week. And I have IBS, abdominal pain, N/V, alternating Diarrhea and Constipation. Coronavirus screen: Client denies travel out of the [place] in the last 14 days. diarrhea, nausea, vomiting. Client presents with at least one sign or symptom that may indicate coronavirus-19. Standard/surgical mask placed on the client. Provider contacted for isolation considerations. Ebola Screen: Patient negative for fever greater than or equal to 101.5 degrees Fahrenheit, and additional compatible Ebola Virus Disease symptoms Patient denies exposure to infectious person. Patient denies travel to an Ebola-affected area in the 21 days before illness onset. No symptoms or risks identified at this time. Initial Sepsis Screen: Does the patient meet any 2 criteria? No. Patient's initial sepsis screen is negative. Does the patient have a suspected source of infection? No. Patient's initial sepsis screen is negative. Risk Assessment: Do you want to hurt yourself or someone else? Patient reports no desire to harm self or others. Onset of symptoms was May 27, 2020. 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 - Social history:: Smoking status: Patient reports the use of cigarette tobacco products, smokes one pack cigarettes per day. Screenin:23 Abuse screen: Denies threats or abuse. Nutritional screening: No deficits noted. Tuberculosis screening: No symptoms or risk factors identified. Fall Risk None identified. Assessment: 18:21 General: Appears in no apparent distress. Behavior is calm, cooperative, appropriate for age. Pain: Complains of pain in right nipple and left nipple Pain began 2-3 days ago. Neuro: Level of Consciousness is awake, alert, obeys commands, Oriented to person, place, time, situation, Appropriate for age Cardiovascular: Heart tones S1 S2 present. Respiratory: Reports cough that is non-productive, persistent Airway is patent Respiratory effort is even, unlabored. GI: Abdomen is non-distended, Bowel sounds present X 4 quads. :. Derm: Skin is intact, is healthy with good turgor, Abscess located on right breast Redness noted around right areola, firmness to touch. Vital Signs: 16:30 BP 117 / 89; Pulse 111; Resp 18 S; Temp 97.7(TE); Pulse Ox 99% on R/A; ca1 ED Course: 15:34 Patient arrived in ED. ds1 16:33 Triage completed. ca1 16:33 Arm band placed on right wrist. ca1 17:32 Go Montero NP is PHCP. pm1 17:32 Dariusz Bee MD is Attending Physician. pm1 17:37 chaperoned Go COASTAL TUG MATE with breast exam. eb 18:04 Joann Wolfe, RN is Primary Nurse. 18:23 Patient has correct armband on for positive identification. Bed in low position. Call light in reach. Side rails up X 1. 19:04 Patient did not have IV access during this emergency room visit. Administered Medications: 18:10 Drug: Clindamycin 600 mg {Note: 2ml In Left, 2 ml in right.} Route: IM; Site: left ventrogluteal; 19:06 Follow up: Response: No adverse reaction Outcome: 18:07 Discharge ordered by . pm1 19:03 Discharged to home ambulatory. 19:03 Condition: good 19:03 Discharge instructions given to patient, Instructed on discharge instructions, follow up and referral plans. Demonstrated understanding of instructions, follow-up care, medications, Prescriptions given X 3. 19:04 Patient left the ED. Signatures: Yvonne Dunham ds1 Go Montero, COASTAL TUG MATE COASTAL TUG MATE pm1 Yas Niño Cheryl RN RN ca1 Joann Wolfe RN RN
--- NOTE | 2020-05-27 18:07 | EDPHYS ---
Physician Documentation [facility] Name: Bijal Andrade Age: 24 yrs Sex: Female : 1995 Arrival Date: 05/27/2020 Time: 15:34 Bed 24 Private MD: ED Physician Dariusz Bee HPI: 05/27 17:48 This 24 yrs old Female presents to ER via Ambulatory with complaints of pm1 Cough, Abscess, Bleeding Gums. 17:48 Patient presents to the ER with multiple complaints but her primary complaint is her pm1 right nipple piercing. She has had a cough for 3 weeks that sounds productive. No fever, chest pain, or shortness of breath. Her gums are starting to bleed and she has chronic gingivitis. Patient's just left her and she has a 9 month old so she has had some constipation and abdominal pain that feels like her chronic IBS. 17:48 Patient with bilateral nipple piercing about 3 weeks ago. This morning she noticed pm1 swelling and tenderness to the right side of her right breast. 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 - Social history:: Smoking status: Patient reports the use of cigarette tobacco products, smokes one pack cigarettes per day. ROS: 17:48 Constitutional: Negative for fever, chills, and weight loss, ENT: Negative for injury, pm1 pain, and discharge, Neck: Negative for injury, pain, and swelling, Cardiovascular: Negative for chest pain, palpitations, and edema. 17:48 Back: Negative for injury and pain, MS/Extremity: Negative for injury and deformity. 17:48 Neuro: Negative for headache, weakness, numbness, tingling, and seizure. 17:48 Respiratory: Positive for cough, Negative for shortness of breath, sputum production, wheezing. 17:48 Abdomen/GI: Positive for abdominal pain, constipation, Negative for nausea, vomiting, and diarrhea. 17:48 Skin: Positive for swelling, of the right breast. Exam: 17:48 Constitutional: This is a well developed, well nourished patient who is awake, alert, pm1 and in no acute distress. Head/Face: Normocephalic, atraumatic. 17:48 Neck: Trachea midline, no thyromegaly or masses palpated, and no cervical lymphadenopathy. Supple, full range of motion without nuchal rigidity, or vertebral point tenderness. No Meningismus. 17:48 Back: No spinal tenderness. No costovertebral tenderness. Full range of motion. Skin: Warm, dry with normal turgor. Normal color with no rashes, no lesions, and no evidence of cellulitis. MS/ Extremity: Pulses equal, no cyanosis. Neurovascular intact. Full, normal range of motion. 17:48 ENT: External ear(s): are unremarkable, Ear canal(s): are normal, TM's: are normal, Posterior pharynx: no acute changes, Dental exam: diffuse gingivitis present. 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 17:48 Cardiovascular: Exam negative for acute changes, Rate: normal, Rhythm: regular, Pulses: no pulse deficits are appreciated. 17:48 Respiratory: Exam negative for acute changes, respiratory distress, shortness of breath. 17:48 Neuro: Exam negative for acute changes, Orientation: is normal, Mentation: is normal, Motor: is normal, moves all fours. Vital Signs: 16:30 BP 117 / 89; Pulse 111; Resp 18 S; Temp 97.7(TE); Pulse Ox 99% on R/A; ca1 MDM: 17:41 Patient medically screened. pm1 17:41 Data reviewed: vital signs. pm1 17:55 Counseling: I had a detailed discussion with the patient and/or guardian regarding: the pm1 historical points, exam findings, and any diagnostic results supporting the discharge/admit diagnosis, the need for outpatient follow up, to return to the emergency department if symptoms worsen or persist or if there are any questions or concerns that arise at home. 17:55 ED course: Patient with bilateral nipple piercing 3 weeks ago. Patient noticed some pm1 swelling and tenderness to right breast today. No unusual discharge present. No fevers. Possibly allergic reaction versus early mild mastitis. Recommended the patient to remove her nipple piercing now but she wants to try taking antibiotics and save her nipple piercing. Administered Medications: 18:10 Drug: Clindamycin 600 mg {Note: 2ml In Left, 2 ml in right.} Route: IM; Site: left ah ventrogluteal; 19:06 Follow up: Response: No adverse reaction Disposition: 05/28 09:32 Co-signature as Attending Physician, Dariusz Bee MD. rn Disposition: 05/27/20 18:07 Discharged to Home. Impression: Superficial foreign body of breast, right breast - body piercing reaction, Bronchitis, not specified as acute or chronic. - Condition is Stable. - Discharge Instructions: Acute Bronchitis, Adult, Cellulitis, Adult. - Prescriptions for Clindamycin HCl 300 mg Oral Capsule - take 1 capsule by ORAL route every 6 hours for 10 days; 40 capsule. Tylenol- Codeine #3 300-30 mg Oral Tablet - take 2 tablets by ORAL route every 6 hours As needed; 20 tablet. Medrol (Thierno) 4 mg Oral Tablets, Dose Pack - take 1 tablet by ORAL route as directed - follow package instructions; 1 packet. Albuterol Sulfate 90 mcg/actuation - inhale 1-2 puff by INHALATION route every 4-6 hours; 1 Inhaler. - Medication Reconciliation Form, Thank You Letter, Antibiotic Education, Prescription Opioid Use form. - Follow up: Emergency Department; When: As needed; Reason: Worsening of condition. Follow up: Private Physician; When: 2 - 3 days; Reason: Recheck today's complaints, Continuance of care, Re-evaluation by your physician. - Problem is new. - Symptoms have improved. Signatures: Dariusz Bee MD MD rn Marinas, Patrick, NP MANAGER FINE pm1 Shazia Kamara RN RN ca1 Harris, Amy, RN RN Corrections: (The following items were deleted from the chart) 05/27 18:08 18:07 05/27/2020 18:07 Discharged to Home. Impression: Superficial foreign body of pm1 breast, right breast - body piercing reaction. Condition is Stable. Forms are Medication Reconciliation Form, Thank You Letter, Antibiotic Education, Prescription Opioid Use. Follow up: Emergency Department; When: As needed; Reason: Worsening of condition. Follow up: Private Physician; When: 2 - 3 days; Reason: Recheck today's complaints, Continuance of care, Re-evaluation by your physician. Problem is new. Symptoms have improved. pm1 19:04 18:08 05/27/2020 18:07 Discharged to Home. Impression: Superficial foreign body of ah breast, right breast - body piercing reaction; Bronchitis, not specified as acute or chronic. Condition is Stable. Discharge Instructions: Cellulitis, Adult, Acute Bronchitis, Adult. Prescriptions for Clindamycin HCl 300 mg Oral Capsule - take 1 capsule by ORAL route every 6 hours for 10 days; 40 capsule, Tylenol-Codeine #3 300-30 mg Oral Tablet - take 2 tablets by ORAL route every 6 hours As needed; 20 tablet, Medrol (Thierno) 4 mg Oral Tablets, Dose Pack - take 1 tablet by ORAL route as directed - follow package instructions; 1 packet, Albuterol Sulfate 90 mcg/actuation - inhale 1-2 puff by INHALATION route every 4-6 hours; 1 Inhaler. and Forms are Medication Reconciliation Form, Thank You Letter, Antibiotic Education, Prescription Opioid Use. Follow up: Emergency Department; When: As needed; Reason: Worsening of condition. Follow up: Private Physician; When: 2 - 3 days; Reason: Recheck today's complaints, Continuance of care, Re-evaluation by your physician. Problem is new. Symptoms have improved. pm1
[2020-05-27] MEDS ORDERED: CLINDAMYCIN IV 150 MG/ML (4 mL) VIAL ONE (18:20)
[2020-05-31 13:07] VITALS: BP 117/89; TEMP 97.7; O2SAT 99
== END 2020-05-27 19:04 | disposition home or self-care (01) ==
LOC: ER 15:31
DX: J40 Bronchitis, not specified as acute or chronic (principal); S20.151A Superficial foreign body of breast, right breast, initial encounter
CPT/HCPCS: 96372; 99283; S0077

== ENCOUNTER 2020-11-09 16:49 | Emergency (ER) | payer BC ==
--- OUTSIDE RECORDS SUMMARY | 2020-11-09 16:52 | XMS REPORT | Continuity of Care Document ---
:1995 Author Organization [facility] t Address [address] [place] [address] Care Team Providers Name Role Phone Tonia Bloom Attending Clinician Problems This patient has no known problems. Allergies, Adverse Reactions, Alerts This patient has no known allergies or adverse reactions. Medications This patient has no known medications. Procedures This patient has no known procedures. Encounters Start End Encounter Admission Attending Care Care Encounter Source Date/Time Date/Time Type Type Clinicians Facility Department ID 2020-10-31 2020-10-31 Office MARTINEZ Byrd [id number] 09:47:25 10:02:25 Visit Carlos Randall CHEMISTRY LAB INSTRUCTOR [id number] [facility] [id number] MATERNAL [id number] & CHILD [address] [place] [address] Results This patient has no known results.
--- NOTE | 2020-11-09 18:00 | RAD REPORT ---
EXAM DESCRIPTION: RAD - Hand Left 3 View - 11/09/2020 5:44 pm CLINICAL HISTORY: PAIN, nontraumatic four-week history COMPARISON: None. FINDINGS: No fracture, dislocation or periosteal reaction noted. No foreign body or other soft tissu e abnormality. IMPRESSION: Negative left hand examination.
[2020-11-09] MEDS ORDERED: IBUPROFEN 400 MG TAB ONE (18:09)
--- NOTE | 2020-11-09 18:16 | ER ---
Nurse's Notes [facility] Name: Bijal Andrade Age: 25 yrs Sex: Female : 1995 Arrival Date: 11/09/2020 Time: 16:54 Bed 30 Private MD: Diagnosis: Pain in left hand;Streptococcal pharyngitis Presentation: 11/09 17:12 Chief complaint: Patient states: left wrist/hand pain that started 4 weeks ago, also em reports sore throat in the morning for 2 weeks, denies fever. Coronavirus screen: Client denies travel out of the [place] in the last 14 days. Ebola Screen: Patient negative for fever greater than or equal to 101.5 degrees Fahrenheit, and additional compatible Ebola Virus Disease symptoms Patient denies exposure to infectious person. Patient denies travel to an Ebola-affected area in the 21 days before illness onset. No symptoms or risks identified at this time. Initial Sepsis Screen: Does the patient meet any 2 criteria? HR > 90 bpm. No. Patient's initial sepsis screen is negative. Does the patient have a suspected source of infection? No. Patient's initial sepsis screen is negative. Risk Assessment: Do you want to hurt yourself or someone else? Patient reports no desire to harm self or others. Onset of symptoms was November 09, 2020. 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 - Social history:: Smoking status: Patient reports the use of cigarette tobacco products, smokes one pack cigarettes per day. Screenin:51 Abuse screen: Denies threats or abuse. Denies injuries from another. Nutritional jl7 screening: No deficits noted. Tuberculosis screening: No symptoms or risk factors identified. Fall Risk None identified. Assessment: 17:51 General: Appears in no apparent distress. uncomfortable, Behavior is calm, cooperative, jl7 appropriate for age. Pain: Complains of pain in left wrist Pain currently is 4 out of 10 on a pain scale. Neuro: Level of Consciousness is awake, alert, obeys commands, Oriented to person, place, time, situation. Cardiovascular: Patient's skin is warm and dry. Respiratory: Airway is patent Respiratory effort is even, unlabored, Respiratory pattern is regular, symmetrical. EENT: Throat is clear is pink. Derm: Skin is pink, warm \T\ dry. Vital Signs: 17:12 BP 125 / 74; Pulse 102; Resp 17; Temp 98.7; Pulse Ox 99% on R/A; Weight 87.54 kg; em Height 5 ft. 5 in. (165.10 cm); Pain 4/10; 17:12 Body Mass Index 32.12 (87.54 kg, 165.10 cm) em ED Course: 16:54 Patient arrived in ED. mr 17:11 Parris Melendez [facility]-C [facility] kb 17:11 Usman Tsai MD is Attending Physician. kb 17:15 Triage completed. em 17:16 Arm band placed on. em 17:19 Maribel Pisano, BOBBY is Primary Nurse. jl7 17:43 Hand Left 3 View XRAY In Process Unspecified. EDMS 17:51 Patient has correct armband on for positive identification. Bed in low position. Call jl7 light in reach. Side rails up X 1. 17:51 Strep swab sent to lab. jl7 18:30 No provider procedures requiring assistance completed. Patient did not have IV access jl7 during this emergency room visit. Administered Medications: 17:51 Drug: Ibuprofen 800 mg Route: PO; jl7 18:29 Follow up: Response: No adverse reaction; Pain is decreased jl7 18:17 Drug: Bicillin L-A (penicillin G Benzathine) 1.2 million units Route: IM; Site: right jl7 vastus lateralis; 18:29 Follow up: Response: No adverse reaction jl7 Outcome: 18:15 Discharge ordered by . kb 18:30 Discharged to home ambulatory. jl7 18:30 Condition: stable 18:30 Discharge instructions given to patient, Instructed on discharge instructions, follow up and referral plans. Demonstrated understanding of instructions, follow-up care. 18:30 Patient left the ED. jl7 Signatures: Dispatcher [employer] EDKS Parris Melendez FNP-C FNP-Shira Galindo, Jose, RN RN em Aliya, Maribel, RN RN jl7
--- NOTE | 2020-11-09 18:16 | EDPHYS ---
Physician Documentation [facility] Name: Bijal Andrade Age: 25 yrs Sex: Female : 1995 Arrival Date: 11/09/2020 Time: 16:54 Bed 30 Private MD: ED Physician Usman Tsai HPI: 11/09 18:11 This 25 yrs old Female presents to ER via Ambulatory with complaints of Hand kb Pain. 18:11 The patient or guardian reports pain. The complaints affect the medial aspect of left kb hand. Context: The problem was sustained at home, resulted from an unknown cause. Onset: The symptoms/episode began/occurred 4 week(s) ago, and became worse 1 week(s) ago. Modifying factors: The symptoms are alleviated by nothing, the symptoms are aggravated by movement. Associated signs and symptoms: The patient has no apparent associated signs or symptoms. Severity of symptoms: At their worst the symptoms were mild, moderate, in the emergency department the symptoms are unchanged. The patient has not experienced similar symptoms in the past. The patient has not recently seen a physician. Pt reports left hand pain for 4 weeks that got worse a week ago after hitting it on something accidentally. also reports sore throat for 2 weeks. 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 - Social history:: Smoking status: Patient reports the use of cigarette tobacco products, smokes one pack cigarettes per day. ROS: 18:08 Constitutional: Negative for fever, chills, and weight loss. kb 18:08 ENT: Positive for sore throat. 18:08 MS/extremity: Positive for pain, of the medial aspect of left hand. 18:08 All other systems are negative. Exam: 18:08 Constitutional: This is a well developed, well nourished patient who is awake, alert, kb and in no acute distress. Respiratory: Respirations even and unlabored. No increased work of breathing, no retractions or nasal flaring. Skin: Warm, dry with normal turgor. Normal color. MS/ Extremity: Pulses equal, no cyanosis. Neurovascular intact. Full, normal range of motion. Neuro: Awake and alert, GCS 15, oriented to person, place, time, and situation. Moves all extremities. Normal gait. Psych: Awake, alert, with orientation to person, place and time. Behavior, mood, and affect are within normal limits. 18:08 ENT: Posterior pharynx: swelling, is not appreciated, erythema, that is mild. Vital Signs: 17:12 BP 125 / 74; Pulse 102; Resp 17; Temp 98.7; Pulse Ox 99% on R/A; Weight 87.54 kg; em Height 5 ft. 5 in. (165.10 cm); Pain 4/10; 17:12 Body Mass Index 32.12 (87.54 kg, 165.10 cm) em MDM: 17:14 Patient medically screened. kb 18:08 Data reviewed: vital signs, nurses notes. Data interpreted: Pulse oximetry: on room air kb is 99 %. Interpretation: normal. Counseling: I had a detailed discussion with the patient and/or guardian regarding: the historical points, exam findings, and any diagnostic results supporting the discharge/admit diagnosis, lab results, radiology results, the need for outpatient follow up, a family practitioner, to return to the emergency department if symptoms worsen or persist or if there are any questions or concerns that arise at home. 11/09 17:15 Order name: Strep; Complete Time: 18:02 kb 11/09 17:15 Order name: Hand Left 3 View XRAY; Complete Time: 18:06 kb Administered Medications: 17:51 Drug: Ibuprofen 800 mg Route: PO; jl7 18:29 Follow up: Response: No adverse reaction; Pain is decreased jl7 18:17 Drug: Bicillin L-A (penicillin G Benzathine) 1.2 million units Route: IM; Site: right jl7 vastus lateralis; 18:29 Follow up: Response: No adverse reaction jl7 Disposition: 11/10 13:15 Co-signature as Attending Physician, Usman Tsai MD I agree with the assessment and kdr plan of care. Disposition: 11/09/20 18:15 Discharged to Home. Impression: Pain in left hand, Streptococcal pharyngitis. - Condition is Stable. - Discharge Instructions: Musculoskeletal Pain, Strep Throat, Ndih-de-Ccas. - Medication Reconciliation Form, Thank You Letter, Antibiotic Education, Prescription Opioid Use form. - Follow up: Emergency Department; When: As needed; Reason: Worsening of condition. Follow up: Private Physician; When: 2 - 3 days; Reason: Recheck today's complaints, Continuance of care, Re-evaluation by your physician. Signatures: Dispatcher [employer] EDIA Parris Melendez, PSYCHIATRIC NURSE PRACTITIONER-C PSYCHIATRIC NURSE PRACTITIONER-Ckb Usman Tsai MD MD [facility] Jose Weston RN RN em Maribel Pisano RN RN jl7 Corrections: (The following items were deleted from the chart) 11/09 18:30 18:15 11/09/2020 18:15 Discharged to Home. Impression: Pain in left hand; Streptococcal jl7 pharyngitis. Condition is Stable. Forms are Medication Reconciliation Form, Thank You Letter, Antibiotic Education, Prescription Opioid Use. Follow up: Emergency Department; When: As needed; Reason: Worsening of condition. Follow up: Private Physician; When: 2 - 3 days; Reason: Recheck today's complaints, Continuance of care, Re-evaluation by your physician. kb
[2020-11-09] MEDS ORDERED: PEN G BENZ LA 1.2MU/2ML SYRINGE IM ONE (18:31)
[2020-11-09 18:42] VITALS: BP 125/74; TEMP 98.7; O2SAT 99
== END 2020-11-09 18:30 | disposition home or self-care (01) ==
LOC: ER 16:49
DX: M79.642 Pain in left hand (principal); J02.0 Streptococcal pharyngitis; F17.210 Nicotine dependence, cigarettes, uncomplicated; Z91.048 Other nonmedicinal substance allergy status
CPT/HCPCS: 87081; 73130; 96372; 99283; J0561

== ENCOUNTER 2021-05-17 19:24 | Emergency (ER) | payer BC ==
--- OUTSIDE RECORDS SUMMARY | 2021-05-17 19:28 | XMS REPORT | Continuity of Care Document ---
:1995 Author Organization [facility] t Address [address] [place] [address] Care Team Providers Name Role Phone Fanraymundoraul PRITCHARD, C Primary Care Physician Gregorio ZAMBRANO, N Attending Clinician Nat PERKINS Attending Clinician Vinnie ZAMBRANO R Attending Clinician Payers Payer Name Policy Type Policy Number Effective Date Expiration Date S ource Advance Directives Directive Decision Effective Termination Comments Source Date Date Healthcare Agents on N/A Univ ersity FileNameRelationshipHealthcare [facility] Agent Medical RelationshipCommunicationTrevor [facility] Care [phone] (Mobile) Problems Condition Condition Condition Status Onset Resolution Last Treating Co mments Source Name Details Category Date Date Treatment Clinician Date Obesity Obesity Disease Active 2020- Univers (BMI (BMI 2-23 ity of 30-39.9) 30-39.9) 00:00: [address] Nexplanon Nexplanon Disease Active Uni vers insertion insertion 5-21 ity of 00:: [address] Situationa Situationa Disease Active U nivers l l 5-21 [place] [address] [place] [id number] History of History of Disease Active U nivers IBS IBS 9-26 ity of 00:00: [address] Polyp of Polyp of Disease Active Unive rs colon, colon, 1-17 ity of unspecifie [place]specif[place] of 00 Medi luis f colon, colon, Branch unspecifie unspecifie d type d type Tobacco Tobacco Disease Active Univers use use 5-12 ity of 00:00: [place] 00 Medical Branch Gastroesop Gastroesop Disease Active U nivers hageal hageal 5-12 ity of reflux reflux 00:00: [place] disease disease 00 Medical without without Branch esophagiti esophagiti s s Allergies, Adverse Reactions, Alerts Allergy Allergy Status Severity Reaction(s) Onset Inactive Treating Comm ents Source Name Type Date Date Clinician NO KNOWN Drug Active Univers ALLERGIE Class ity of S [facility] Social History Social Habit Start Date Stop Date Quantity Comments Source History of 2010-03-17 Cigarette Smoker Universi ty of tobacco use 00:00:00 [facility] Exposure to Not sure University of SARS-CoV-2 [place] [facility] (event) Branch History SDOH University o f Alcohol Frequency [facility] edical Branch History SDOH University o f Alcohol Std [place] [facility] Drinks Branch History SDOH University o f Alcohol Binge [place] [facility] Branch Alcohol intake 2021-05-15 2021-05-15 0 /d University of 00:00:00 00:00:00 [facility] Tobacco Comment 2018-08-08 2018-08-08 she smokes 5 Univers ity of 00:00:00 00:00:00 cigarettes to 1.5 [facility] ppd, she says Branch depends how she's feeling Alcohol Comment 2017-03-20 2017-03-20 Occasionally Univers ity of 00:00:00 00:00:00 [facility] Cigarettes smoked 2015-05-13 2015-05-13 Univers ity of current [facility] Branch Tobacco use and 2015-05-13 2015-05-13 Never used Universit y of exposure 00:00:00 00:00:00 [facility] Sex Assigned At [birth year] Universit y of 00:00:00 00:00:00 [facility] Smoking Status Start Date Stop Date Source Current every day smoker 2015-05-13 00:00:00 Uni versity of [facility] Medications Ordered Filled Start Stop Current Ordering Indication Dosage Frequency Signature Comments Components Source Medication Medication Date Date Medication? Clinician (SIG) Name Name metroNIDAZO 2020-06- Yes [id number] 500mg Take 1 Univers LE (FLAGYL) -24 12- tablet by it y of 500 mg 00:00: 05:59 mouth 2 [place] tablet 00 :00 (two) Medical times Branch daily for 7 days. esomeprazol 2020-06 Yes Take by Un abelardo e magnesium 1-18 mouth. ity of (NEXIUM 08:38: [place] ORAL) 34 Medical Branch esomeprazol 2020-06 Yes Take by Un abelardo e magnesium 1-18 mouth. ity of (NEXIUM 08:38: [place] ORAL) 34 Medical Branch acetaminoph 2020- No Unive rs en-codeine 03-1118 ity of 300-30 mg 00:00: 00:00 [place] tablet 00 :00 Medical Branch phentermine 2020- No Unive rs 37.5 mg 02-2018 ity of tablet 00:00: 00:00 [place] 00 :00 Medical Branch amoxicillin 2020- No [id number] 875mg Take 1 Univers 875 mg -14 05-18 tablet by ity of tablet 00:00: 00:00 mouth 2 [place] 00 :00 (two) Medical times Branch daily. albuterol 2019-06- No INHALE 1 2 U nivers 90 07-28-18 PUFFS BY ity of mcg/actuati 00:00: 00:00 [place]TH [place] inhaler 00 :00 EVERY 4 6 Medi luis f HOURS Branch esomeprazol 2020- No [id number] 40mg Take 1 Univers e (NEXIUM) 5-21 -18 capsule by it y of 40 mg 00:00: 00:00 mouth [place] capsule 00 :00 daily with Medica l breakfast. Branch ibuprofen 2020- No [id number] 600mg Take 1 Univers 600 mg 5-03 11-18 tablet by ity of tablet 00:00: 00:00 mouth [place] 00 :00 every 6 Medical (six) Branch hours as needed for Pain (scale 1-3) or Pain (scale 4-6) (Pain). Take with food or milk. Immunizations Ordered Filled Immunization Date Status Comments [facility] e Immunization Name Name HPV9 2021-05-09 Completed University of 00:00:00 [facility] HPV9 2021-05-09 Completed University of 00:00:00 [facility] Branch HPV9 2018-11-11 Completed University of 00:00:00 [facility] Branch HPV9 2018-11-11 Completed University of 00:00:00 [facility] TDAP 2018-08-05 Completed University of 00:00:00 [facility] TDAP 2018-08-05 Completed University of 00:00:00 [facility] Influenza Virus 2018-03-08 Completed Universit y of Vaccine 00:00:00 [facility] Influenza Virus 2018-03-08 Completed Universit y of Vaccine 00:00:00 [facility] HPV9 2017-07-08 Completed University of 00:00:00 [facility] HPV9 2017-07-08 Completed University of 00:00:00 [facility] Vital Signs Vital Name Observation Time Observation Value Comments Source Systolic blood 2021-05-09 14:35:00 119 [facility]Hg[facility] Diastolic blood 2021-05-09 14:35:00 72 mm[Hg] [facility] 2021-05-09 14:35:00 101 /min [facility] Body temperature 2021-05-09 14:29:[address] [facility] Respiratory rate 2021-05-09 14:29:00 16 /min [facility] Body height 2021-05-09 14:29:00 165.1 cm [facility] Body weight 2021-05-09 14:29:00 82.146 kg [facility] BMI 2021-05-09 14:29:00 30.14 kg/m2 [facility] Procedures Procedure Date / Time Performed Performing Clinician Sour e GARDASIL 9 (HPV 9V) 2021-05-09 14:42:06 Antoinette Perkins [facility] POCT URINALYSIS W/O 2021-05-09 00:00:00 Antoinette Perkins [facility] Encounters Start End Encounter Admission Attending Care Care Encounter Source Date/Time Date/Time Type Type Clinicians Facility Department ID 2021-05-15 2021-05-15 Telephone MARTINEZ Perkins [id number] Univers 00:00:00 00:00:00 Antoinette Nat MEAT CUTTER [id number] it y of [facility] [id number] Hector as MATERNAL [id number] [facility] & [address] 2021-05-09 2021-05-09 Office [facility] [id number] Univers 08:15:14 09:09:39 Visit Antoinette Nat MEAT CUTTER [id number] it y of [facility] [id number] Hector as MATERNAL [id number] [facility] & [address] 2021-05-09 2021-05-09 [facility] [id number] Univers 08:00:00 09:09:39 ANTOINETTE vargas [facility] 2020-10-31 2020-10-31 Office [facility] [id number] 09:47:25 10:02:25 Visit Carlos Randall ME[employer] C[employer]TER [id number] REGIONAL [id number] MATERNAL [id number] & CHILD [address] [place] [address] Results Test Description Test Time Test Comments Results Result Comments Source POCT URINALYSIS W/O SPECIFIC GRAVITY 2021-05-09 14:34:00 Test Item Value Reference Range Interpretation Comme nts POCT PH U (test code = 3254) 5 mg/dl 5-8 POCT U LEUK EST (test code = 3263) trace Negative - Negative POCT U NIT (test code = 3262) - Negative - Negative POCT U PROT (test code = 3259) trace Negative - Negative POCT U GLU (test code = 3256) - Negative - Negative POCT U KETONE (test code = 3258) - Negative - Negative POCT U BLD (test code = 3257) - Negative - Negative [facility]
[2021-05-17] MEDS ORDERED: HYDROCODONE/APAP 7.5/325 MG TAB ONE (21:42)
--- NOTE | 2021-05-17 23:42 | ER ---
Nurse's Notes [facility] Name: Bijal Andrade Age: 25 yrs Sex: Female : 1995 Arrival Date: 05/17/2021 Time: 19:40 Bed 12 Private MD: Diagnosis: Periapical abscess without sinus Presentation: 05/17 19:40 Chief complaint: Patient states: "My jaw has a weird mass on it. I've seen a lot of doctors and I'm supposed to follow up, but it's bigger and it's more painful.". Coronavirus screen: Client denies travel out of the [place] in the last 14 days. Ebola Screen: Patient denies exposure to infectious person. Patient denies travel to an Ebola-affected area in the 21 days before illness onset. Initial Sepsis Screen: Does the patient meet any 2 criteria? No. Patient's initial sepsis screen is negative. Does the patient have a suspected source of infection? No. Patient's initial sepsis screen is negative. Risk Assessment: Do you want to hurt yourself or someone else? Patient reports no desire to harm self or others. Onset of symptoms. Onset of symptoms was January 2021. 19:40 Method Of Arrival: Ambulatory ss 19:40 Acuity: JUANIS 3 Triage Assessment: 22:17 General: Appears in no apparent distress. Behavior is calm, cooperative. Pain: df1 Complains of pain in left submandibular area and left sternocleidomastoid Pain does not radiate. POT FIRER: 19:41 LMP N/A - control method Historical: - Allergies: 19:41 bandaids; ss 19:41 Tape; ss - Home Meds: 22:20 Nexium 40 mg Oral cpDR 1 cap once daily [Active]; df1 - PMHx: 19:41 Anemia; Depression; GERD; HYDRONEPHROSIS; Migraines; ss - PSHx: 22:20 None; df1 - Immunization history:: Client reports having NOT received the Covid vaccine. - Social history:: Smoking status: Patient reports the use of cigarette tobacco products, denies chronic smoking, but will smoke occasionally. Screenin:16 Abuse screen: Denies threats or abuse. Nutritional screening: No deficits noted. df1 Tuberculosis screening: No symptoms or risk factors identified. Fall Risk None identified. Assessment: 22:19 General: Appears in no apparent distress. Behavior is calm, cooperative. Pain: df1 Complains of pain in submental area and left submandibular area. Neuro: No deficits noted. Cardiovascular: No deficits noted. Respiratory: No deficits noted. GI: No deficits noted. : No deficits noted. EENT: No deficits noted. Derm: No deficits noted. Musculoskeletal: No deficits noted. 05/18 00:39 Reassessment: Patient is alert, oriented x 3, equal unlabored respirations, skin bb warm/dry/pink. pt verbalized understanding of and agrees to plan of care discharge instructions given pt ambulated with steady gait to exit. Vital Signs: 05/17 19:41 BP 133 / 86; Pulse 84; Resp 16; Temp 98.4(TE); Pulse Ox 100% on R/A; Weight 83.91 kg; ss Height 5 ft. 5 in. (165.10 cm); Pain 9/10; 22:20 BP 132 / 78; Pulse 75; Resp 18; Pulse Ox 99% on R/A; df1 23:27 BP 135 / 75; Pulse 80; Resp 18; Pulse Ox 99% on R/A; df1 05/18 00:44 BP 116 / 72; Pulse 68; Resp 16; Temp 98.0; Pulse Ox 100% ; lt3 05/17 19:41 Body Mass Index 30.79 (83.91 kg, 165.10 cm) ED Course: 05/17 19:40 Patient arrived in ED. ss 19:41 Triage completed. ss 19:41 Arm band placed on right wrist. ss 21:14 Parris Melendez FNP-C is [facility]. kb 21:14 Stefano Ramos MD is Attending Physician. kb 21:18 Hailey Pendleton is Primary Nurse. df1 21:51 No provider procedures requiring assistance completed. Inserted saline lock: 20 gauge df1 in left antecubital area, using aseptic technique. 22:03 CT Facial Bones W/ Con \\T\\ Mpr In Process Unspecified. EDMS 22:16 Patient has correct armband on for positive identification. Placed in gown. Bed in low df1 position. Call light in reach. Side rails up X 1. Pulse ox on. NIBP on. 05/18 00:07 IV discontinued, intact, bleeding controlled, No redness/swelling at site. Pressure df1 dressing applied. Administered Medications: 05/17 21:51 Drug: [place] (HYDROcodone-acetaminophen) (7.5 mg-325 mg) 1 tabs Route: PO; df1 05/18 00:40 Follow up: Response: No adverse reaction; RASS: Alert and Calm (0) bb Outcome: 05/17 23:42 Discharge ordered by MD. kaufman 05/18 00:07 Discharged to home ambulatory. df1 Condition: stable Discharge instructions given to patient, Instructed on discharge instructions, follow up and referral plans. medication usage, Demonstrated understanding of 00:53 Patient left the ED. bb Signatures: Dispatcher [employer] EDMS Parris Melendez, LESLIE ZAMBRANO-Jeannie Gonzalez RN RN Johana Sampson RN RN Hailey Hidalgo df1 Shelia Westfall lt3
--- NOTE | 2021-05-17 23:43 | EDPHYS ---
Physician Documentation [facility] [place] Name: Bijal Andrade Age: 25 yrs Sex: Female : 1995 Arrival Date: 05/17/2021 Time: 19:40 Bed 12 Private MD: ED Physician Stefano Ramos HPI: 05/17 23:39 This 25 yrs old Female presents to ER via Ambulatory with complaints of Jaw Pain. kb 23:39 The patient presents with pain, swelling. The problem is located in the submental area. kb 23:40 Onset: The symptoms/episode began/occurred 3 month(s) ago, and became worse. Duration: kb The symptoms are continuous. Modifying factors: The symptoms are alleviated by nothing, the symptoms are aggravated by nothing. Associated signs and symptoms: Pertinent positives: pain, swelling. Severity of symptoms: At their worst the symptoms were moderate, in the emergency department the symptoms are unchanged. The patient has not experienced similar symptoms in the past. The patient has not recently seen a physician. Pt reports pain and swelling under chin. States she went to her dr and was told it was a dental issue, went to her dentist and had multiple x-rays done with normal results. Was told to follow up with oral surgeon. States it got worse over the last day so she came in. 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 - Social history:: Smoking status: Patient reports the use of cigarette tobacco products, denies chronic smoking, but will smoke occasionally. ROS: 23:15 Constitutional: Negative for fever, chills, and weight loss. kb 23:15 ENT: Positive for swelling to left chin area. 23:15 All other systems are negative. Exam: 23:15 Constitutional: This is a well developed, well nourished patient who is awake, alert, kb and in no acute distress. Head/Face: Normocephalic, atraumatic. ENT: Moist Mucous membranes Respiratory: Respirations even and unlabored. No increased work of breathing, no retractions or nasal flaring. Skin: Warm, dry with normal turgor. Normal color. MS/ Extremity: Pulses equal, no cyanosis. Neurovascular intact. Full, normal range of motion. Neuro: Awake and alert, GCS 15, oriented to person, place, time, and situation. Moves all extremities. Normal gait. Psych: Awake, alert, with orientation to person, place and time. Behavior, mood, and affect are within normal limits. 23:15 ENT: swelling and mass felt to submental area on left side. Vital Signs: 19:41 BP 133 / 86; Pulse 84; Resp 16; Temp 98.4(TE); Pulse Ox 100% on R/A; Weight 83.91 kg; ss Height 5 ft. 5 in. (165.10 cm); Pain 9/10; 22:20 BP 132 / 78; Pulse 75; Resp 18; Pulse Ox 99% on R/A; df1 23:27 BP 135 / 75; Pulse 80; Resp 18; Pulse Ox 99% on R/A; df1 05/18 00:44 BP 116 / 72; Pulse 68; Resp 16; Temp 98.0; Pulse Ox 100% ; lt3 05/17 19:41 Body Mass Index 30.79 (83.91 kg, 165.10 cm) ss MDM: 05/17 21:15 Patient medically screened. kb 23:15 Data reviewed: vital signs, nurses notes. Data interpreted: Pulse oximetry: on room air kb is 99 %. Interpretation: normal. 23:39 Counseling: I had a detailed discussion with the patient and/or guardian regarding: the kb historical points, exam findings, and any diagnostic results supporting the discharge/admit diagnosis, radiology results, the need for outpatient follow up, a family practitioner, to return to the emergency department if symptoms worsen or persist or if there are any questions or concerns that arise at home. 05/17 21:41 Order name: CT Facial Bones W/ Con \T\ Mpr kb 05/17 21:40 Order name: IV Start; Complete Time: 21:51 kb Administered Medications: 21:51 Drug: [place] (HYDROcodone-acetaminophen) (7.5 mg-325 mg) 1 tabs Route: PO; df1 05/18 00:40 Follow up: Response: No adverse reaction; RASS: Alert and Calm (0) bb Disposition: 06:11 Co-signature as Attending Physician, Stefano Ramos MD. [email or web address] Disposition Summary: 05/17/21 23:42 Discharge Ordered Location: Home kb Condition: Stable kb Diagnosis - Periapical abscess without sinus kb Followup: kb - With: Emergency Department - When: As needed - Reason: Worsening of condition Followup: kb - With: Private Physician - When: 2 - 3 days - Reason: Recheck today's complaints, Continuance of care, Re-evaluation by your physician Discharge Instructions: - Discharge Summary Sheet kb - Dental Abscess, [id number] kb Forms: - Medication Reconciliation Form kb - Thank You Letter kb - Antibiotic Education kb - Prescription Opioid Use kb Prescriptions: - Augmentin 875-125 mg Oral Tablet - take 1 tablet by ORAL route every 12 hours for 10 days; 20 tablet; Refills: 0, kb Product Selection Permitted Signatures: Dispatcher [employer] EDMS Parris Melendez, JUAN MANUEL-C JUAN MANUEL-Johana Laboy, RN RN Stefano Ramos MD MD [facility] Hailey Pendleton df1 Jeannie Mora RN bb Corrections: (The following items were deleted from the chart) 05/17 23:39 23:15 ENT: swelling and mass felt to submandibular area on left side. kb kb
[2021-05-18 01:21] VITALS: BP 116/72; TEMP 98; O2SAT 100
--- NOTE | 2021-05-18 18:40 | RAD REPORT ---
EXAM DESCRIPTION: CT - Facial Bones W Con Mpr - 05/18/2021 6:29 am CLINICAL HISTORY: 25 years, Female, FACIAL PAIN COMPARISON: None. TECHNIQUE: Multiple transaxial tomograms of the maxilla facial bones were performed utilizing 2 mm s lice thickness at 2 mm interval reconstruction after the administration of IV contrast. In addition 2 -D multiplanar reconstructions in the coronal and sagittal plane were performed and reviewed. This exam was performed according to our departmental dose-optimization protocol, which includes auto mated exposure control, adjustment of the mA and/or kV according to patient size and/or use of iterat ynes reconstruction technique. FINDINGS: There is a abnormal haziness within the skin/subcutaneous contains tissue along the anteri or left submental aspect. There are slight prominent submental lymph node bilaterally on image 21, ri ght side measuring 6.2 mm, left side measuring 6 mm. There is a cystic structure within the level of the inferior left first molar most likely small business representative of a periapical abscess/dental abscess. This is located within the region of the exiting seventh left nerve, best demonstrated on axial image 26/ 95-22/95, coronal image 22/75 and sagittal image 54/92-53/92. The rest of the soft tissues of the maxillofacial CT demonstrate to be within normal limits. There is normal appearance of the parapharyngeal space. No peritonsillar abscess. No significant lymphadenopa thy. Dental amalgam artifact is noted. IMPRESSION: Cystic structure within the level of the inferior left first molar most likely represent ative of a periapical abscess/dental abscess. This is located within the region of the exiting sevent h left nerve. There is associated inflammation and/or infection along the left submental area within the region of periapical abscess. No definitive the superficial fluid collection and/or abscess could be seen. Prominent submental lymph nodes bilaterally most likely reactive in nature. Electronically signed by: Moe Valderrama MD 05/17/2021 10:31 PM CORPORATE STAFF ACCOUNTANT Due to temporary technical issues with the PACS/Fluency reporting system, reports are being signed by the in house radiologists without review as a courtesy to insure prompt reporting. The interpreting radiologist is fully responsible for the content of the report.
== END 2021-05-18 00:53 | disposition home or self-care (01) ==
LOC: ER 19:24
DX: K04.7 Periapical abscess without sinus (principal); Z91.048 Other nonmedicinal substance allergy status
CPT/HCPCS: 82565; 70487; 76377; 99284; Q9967

== ENCOUNTER 2021-09-10 00:37 | Emergency (ER) | payer BC ==
--- OUTSIDE RECORDS SUMMARY | 2021-09-10 01:19 | XMS REPORT | Continuity of Care Document ---
:1995 Author Organization [facility] t Address [address] [place] [address] Care Team Providers Name Role Phone AthensAaron higignsy Primary Care Physician Tonia BYRD Attending Clinician Unavailable Gregorio ZAMBRANO, Nat Attending Clinician Nat PERKINS Attending Clinician Unavailable Tonia Bloom Attending Clinician Payers Payer Name Policy Type Policy Number Effective Date Expiration Date S jeet [facility] - [id number] 2015 00:00:00 OUT OF STATE Advance Directives Directive Decision Effective Termination Comments Source Date Date Healthcare Agents on N/A [facility] ersity FileNameRelationshipHealthcare [facility] Agent Medical RelationshipCommunicationTrevor Branch [facility] [phone] (Mobile) Problems Condition Condition Condition Status Onset Resolution Last Treating Co mments Source Name Details Category Date Date Treatment Clinician Date Obesity Obesity Disease Active Univers (BMI (BMI 2-23 ity of 30-39.9) 30-39.9) 00:00: [address] Nexplanon Nexplanon Disease Active 2019-0 Uni vers insertion insertion 5-21 ity of 00:: [address] Situationa Situationa Disease Active 2020-0 U nivers l l 5-21 [facility] depression [place] [facility] [facility] [place] History of History of Disease Active 2017-0 U nivers IBS IBS 9-26 ity of 00:00: [place] 00 [facility] Polyp of Polyp of Disease Active Unive [...] Active Univers ALLERGIE Class ity of [facility] Social History Social Habit Start Date Stop Date Quantity Comments Source History of 2010-03-17 Cigarette Smoker Universi ty of tobacco use 00:00:00 [facility] Exposure to Not sure University of SARS-CoV-2 [place] [facility] (event) Branch History SDOH University o f Alcohol Frequency [facility] edical Branch History SDOH University o f Alcohol Std [place] [facility] Drinks Branch History SDOH University o f Alcohol Binge [facility] al Branch Alcohol intake 2021-05-15 2021-05-15 0 /d University of 00:00:00 00:00:00 [facility] Tobacco Comment 2018-08-08 2018-08-08 she smokes 5 Univers ity of 00:00:00 00:00:00 [facility].5 [place] [facility], she says Branch depends how she's feeling Alcohol Comment 2017-03-20 2017-03-20 Occasionally Univers ity of 00:00:00 00:00:00 [facility] Cigarettes smoked 2015-05-13 2015-05-13 Univers ity of current (pack per 00:00:00 00:00:00 [facility] edical ) - Reported Branch Tobacco use and 2015-05-13 2015-05-13 Never used Universit y of exposure 00:00:00 00:00:00 [facility] Sex Assigned At [birth year] Universit y of 00:00:00 00:00:00 [facility] Smoking Status Start Date Stop Date Source Current every day smoker 2015-05-13 00:00:00 Uni versity of [facility] Medications Ordered Filled Start Stop Current Ordering Indication Dosage Frequency Signature Comments Components Source Medication Medication Date Date Medication? Clinician (SIG) Name Name metroNIDAZO 2020-06- No [id number] 500mg Take 1 Univers LE (FLAGYL) 07-15 tablet by it y of 500 mg 00:00: 05:59 mouth 2 [place] tablet 00 :00 (two) Medical times [place] daily for 7 days. esomeprazol 2020-06 Yes Take by Un abelardo e magnesium 1-18 mouth. ity of (NEXIUM 08:38: [place] ORAL) Medical [place] esomeprazol 2020-06 Yes Take by Un abelardo e magnesium 1-18 mouth. ity of (NEXIUM 08:38: [place] ORAL) [address] [place] [address] esomeprazol 2020-06 Yes Take by Un abelardo e magnesium 1-18 mouth. ity of (NEXIUM 08:38: [place] ORAL) [facility] [place] acetaminoph 2020- No Unive rs en-codeine 03-1118 ity of 300-30 mg 00:00: 00:00 [place] tablet 00 :00 Medical Branch phentermine 2020- No Unive rs 37.5 mg 02-2018 ity of tablet 00:00: 00:00 [place] 00 :00 Medical Branch amoxicillin 2020- No [id number] 875mg Take 1 Univers 875 mg 08-14-18 tablet by ity of tablet 00:00: 00:00 mouth 2 [place] 00 :00 (two) [facility] times [place] daily. albuterol 2019-06- No INHALE 1 2 U nivers 90 07-28-18 PUFFS BY ity of mcg/actuati 00:00: 00:00 [place]TH [place] inhaler 00 :00 EVERY 4 6 Medi luis f HOURS Branch esomeprazol 2020- No [id number] 40mg Take 1 Univers e (NEXIUM) 5-12 05-18 capsule by it y of 40 mg 00:00: 00:00 mouth [place] capsule 00 :00 daily with Medica l breakfast. Branch ibuprofen 2020- No [id number] 600mg Take 1 Univers 600 mg 5-08 30-18 tablet by ity of tablet 00:00: 00:00 mouth [place] 00 :00 every 6 Medical (six) Branch hours as needed for Pain (scale 1-3) or Pain (scale 4-6) (Pain). Take with food or milk. Immunizations Ordered Filled Immunization Date Status Comments [facility] e Immunization Name Name HPV9 2021-05-09 Completed University of 00:00:00 [facility] HPV9 2021-05-09 Completed University of 00:00:00 [facility] Branch HPV9 2021-05-09 Completed University of 00:00:00 [facility] HPV9 2018-11-11 Completed University of 00:00:00 [facility] HPV9 2018-11-11 Completed University of 00:00:00 [facility] HPV9 2018-11-11 Completed University of 00:00:00 [facility] TDAP 2018-08-05 Completed University of 00:00:00 [facility] TDAP 2018-08-05 Completed University of 00:00:00 [facility] TDAP 2018-08-05 Completed University of 00:00:00 [facility] Influenza Virus 2018-03-08 Completed Universit y of Vaccine 00:00:00 [facility] Influenza Virus 2018-03-08 Completed Universit y of Vaccine 00:00:00 [facility] Influenza Virus 2018-03-08 Completed Universit y of Vaccine 00:00:00 [facility] HPV9 2017-07-08 Completed University of 00:00:00 [facility] HPV9 2017-07-08 Completed University of 00:00:00 [facility] HPV9 2017-07-08 Completed University of 00:00:00 [facility] Vital Signs Vital Name Observation Time Observation Value Comments Source Systolic blood 2021-05-09 14:35:00 119 mm[Hg] Univer sity of pressure [facility] Diastolic blood 2021-05-09 14:35:00 72 mm[Hg] Unive rsity of pressure [facility] Heart rate 2021-05-09 14:35:00 101 /min [facility] Body temperature 2021-05-09 14:29:00 36.83 Nila [facility] Res[facility] rate 2021-05-09 14:29:00 16 /min [facility] Body height 2021-05-09 14:29:00 165.1 cm [facility] Body weight 2021-05-09 14:29:00 82.146 kg [facility] BMI 2021-05-09 14:29:00 30.14 kg/m2 [facility] Procedures Procedure Date / Time Performed Performing Clinician Jagruti lewis GARDASIL 9 (HPV 9V) 2021-05-09 14:42:06 Anotinette Perkins [facility] VACCINE [facility] Branch POCT URINALYSIS W/O 2021-05-09 00:00:00 Antoinette Perkins [facility] SPECIFIC GRAVITY [facility] Emergency Encounters Start End Encounter Admission Attending Care Care Encounter Source Date/Time Date/Time Type Type Clinicians Facility Department ID 2022-05-12 2022-05-12 Outpatient Tonia BYRD [facility] [id number] Univers 08:30:00 08:30:00 CARLOS puga f [facility] 2021-09-09 2021-09-09 [facility] [id number] Univers 00:00:00 00:00:00 Antoinette Johns WINDOWS PHONE DEVELOPER [id number] it y of REGIONAL [id number] [place] as MATERNAL [id number] Med ical & CHILD [address] [place] [address] 2021-05-15 2021-05-15 [facility] [id number] Univers 00:00:00 00:00:00 Antoinette Johns WINDOWS PHONE DEVELOPER [id number] it y of REGIONAL [id number] [place] as MATERNAL [id number] [facility] ical & CHILD [address] [place] [address] 2021-05-09 2021-05-09 Office [facility] [id number] Univers 08:15:14 09:09:39 Visit Antoinette Johns WINDOWS PHONE DEVELOPER [id number] it y of REGIONAL [id number] [place] as MATERNAL [id number] [facility] & CHILD [address] [place] [address] 2021-05-09 2021-05-09 [facility] [id number] Univers 08:00:00 09:09:39 ANTOINETTE vargas [facility] 2020-10-31 2020-10-31 Office MARTINEZ Byrd [id number] 09:47:25 10:02:25 Visit Carlos Randall WINDOWS PHONE DEVELOPER [id number] [facility] [id number] MATERNAL [id number] & CHILD [address] [place] [address] Results Test Description Test Time Test Comments [...] code = 3257) - Negative - Negative [facility]
[2021-09-10 02:10] LABS: Urine Blood Negative (Negative); Urine Glucose Negative (Negative); Urine Protein Negative (Negative); Urine Specific Gravity 1.025 (1.005-1.030)
[2021-09-10] MEDS ORDERED: CEFTRIAXONE 1000 MG/VIAL ONE (02:21)
[2021-09-10] MEDS ORDERED: KETOROLAC 30 MG/ML INJ ONE (02:21)
[2021-09-10] MEDS ORDERED: ONDANSETRON 4 MG (ODT) TAB ONE (02:22)
[2021-09-10 02:41] LABS: Urine Specific Gravity/Preg 1.025 (1.005-1.030)
--- NOTE | 2021-09-10 02:42 | EDPHYS ---
Physician Documentation [facility] Name: Bijal Andrade Age: 25 yrs Sex: Female : 1995 Arrival Date: 09/10/2021 Time: :23 Bed 7 Private MD: ED Physician Dieudonne Valdez HPI: 09/10 01:53 This 25 yrs old Female presents to ER via Unassigned with complaints of Dysuria. pm1 01:54 The patient presents with flank pain, bilaterally, urinary symptoms, dysuria. pm1 01:54 Onset: The symptoms/episode began/occurred yesterday. Modifying factors: the symptoms pm1 are aggravated by urinating. Associated signs and symptoms: Pertinent positives: nausea, Diarrhea with her baseline IBS, Pertinent negatives: fever, vomiting. Severity of symptoms: in the emergency department the symptoms are unchanged. The patient has experienced similar episodes in the past, several times, today's symptoms are similar, to previous UTI. The patient has not recently seen a physician. WINDOW TINTER: 02:03 LMP N/A - control method st1 Historical: - Allergies: 02:03 bandaids; st1 02:03 Tape; st1 - Home Meds: 02:03 Nexium 40 mg Oral cpDR 1 cap once daily [Active]; st1 - PMHx: 02:03 Anemia; Depression; GERD; HYDRONEPHROSIS; Migraines; st1 - Immunization history:: Client reports having NOT received the Covid vaccine. Flu vaccine status is unknown. - Social history:: Smoking status: Patient reports the use of cigarette tobacco products, smokes one pack cigarettes per day. Patient uses alcohol, only on a social basis. Patient/guardian denies using. ROS: 01:54 Positive for flank pain, urinary frequency, burning with urination. pm1 01:54 Constitutional: Negative for fever, chills, and weight loss, Cardiovascular: Negative for chest pain, palpitations, and edema, Respiratory: Negative for shortness of breath, cough, wheezing, and pleuritic chest pain. 01:54 MS/Extremity: Negative for injury and deformity, Skin: Negative for injury, rash, and discoloration, Neuro: Negative for headache, weakness, numbness, tingling, and seizure. 01:54 Abdomen/GI: Positive for abdominal pain, nausea, of the suprapubic area, Negative for vomiting, diarrhea. 01:54 Back: Positive for flank pain, bilaterally. 01:54 All other systems are negative. Exam: 01:54 Constitutional: This is a well developed, well nourished patient who is awake, alert, pm1 and in no acute distress. Head/Face: Normocephalic, atraumatic. 01:54 Skin: Warm, dry with normal turgor. Normal color with no rashes, no lesions, and no evidence of cellulitis. MS/ Extremity: Pulses equal, no cyanosis. Neurovascular intact. Full, normal range of motion. 01:54 Cardiovascular: Exam negative for acute changes, Rate: normal, Rhythm: regular, Pulses: no pulse deficits are appreciated, Heart sounds: normal. 01:54 Respiratory: Exam negative for acute changes, respiratory distress, shortness of breath. 01:54 Abdomen/GI: Inspection: obese Palpation: abdomen is soft and non-tender. 01:54 Back: pain, is absent, normal spinal alignment noted. 01:54 Neuro: Exam negative for acute changes, Orientation: is normal, Mentation: is normal, Motor: is normal, moves all fours. Vital Signs: 02:03 BP 125 / 74; Pulse 99; Resp 16; Temp 98.8; Pulse Ox 98% on R/A; Weight 83.91 kg; Height st1 5 ft. 5 in. (165.10 cm); Pain 6/10; 02:49 BP 120 / 70; Pulse 65; Resp 16; Pulse Ox 100% on R/A; st1 02:03 Body Mass Index 30.79 (83.91 kg, 165.10 cm) st1 MDM: 01:46 Patient medically screened. all 01:55 ED course: Patient wants to avoid getting "the big work up for a urinary tract pm1 infection," therefore informed her that the minimum required for her workup of a UTI without vomiting and not appearing toxic is abx therapy, urine sample with culture. Explained to her that without doing all the blood work and CT scan I could easily miss the diagnosis of pyelonephritis. 02:24 Data reviewed: vital signs. Data interpreted: Pulse oximetry: on room air is 98 %. pm1 Interpretation: normal. 02:41 Counseling: I had a detailed discussion with the patient and/or guardian regarding: the pm1 historical points, exam findings, and any diagnostic results supporting the discharge/admit diagnosis, lab results, the need for outpatient follow up, to return to the emergency department if symptoms worsen or persist or if there are any questions or concerns that arise at home. 09/10 01:55 Order name: Urine Microscopic Only pm1 09/10 02:08 Order name: Urine Dipstick-Ancillary; Complete Time: 02:14 EDMS 09/10 02:08 Order name: Urine --Ancillary (enter results) mw2 09/10 01:55 Order name: Urine Dipstick-Ancillary (obtain specimen); Complete Time: 02:08 pm1 09/10 02:08 Order name: Urine Test (obtain specimen); Complete Time: 02:08 mw2 Administered Medications: 02:27 Drug: Rocephin (cefTRIAXone) 1 grams Route: IM; Site: right gluteus; st1 02:27 Drug: Zofran (Ondansetron) 4 mg Route: PO; st1 02:27 Drug: Ketorolac 60 mg Route: IM; Site: right gluteus; st1 Disposition Summary: 09/10/21 02:42 Discharge Ordered Location: Home pm1 Problem: new pm1 Symptoms: have improved pm1 Condition: Stable pm1 Diagnosis - UTI/ Urinary tract infection, site not specified pm1 Followup: pm1 - With: Emergency Department - When: As needed - Reason: Worsening of condition Followup: pm1 - With: Private Physician - When: 2 - 3 days - Reason: Recheck today's complaints, Continuance of care, Re-evaluation by your physician Discharge Instructions: - Discharge Summary Sheet pm1 - Urinary Tract Infection, Adult pm1 Forms: - Medication Reconciliation Form pm1 - Thank You Letter pm1 - Antibiotic Education pm1 - Prescription Opioid Use pm1 Prescriptions: - Pyridium 200 mg Oral Tablet - take 1 tablet by ORAL route every 8 hours for 3 days; 9 tablet; Refills: 0, pm1 Product Selection Permitted - Bactrim DS 800-160 mg Oral Tablet - take 1 tablet by ORAL route every 12 hours for 10 days; 20 tablet; Refills: 0, pm1 Product Selection Permitted - ondansetron 4 mg Oral tablet,disintegrating - place 1 tablet by TRANSLINGUAL route every 8 hours As needed; 12 tablet; pm1 Refills: 0, Product Selection Permitted Addendum: 09/11/2021 07:06 Co-signature as Attending Physician, Dieudonne Valdez MD I agree with the assessment and c marie plan of care. Signatures: Dispatcher [employer] Dieudonne Elmore MD MD cha Marinas, Patrick, DIETARY SERVICES MANAGER DIETARY SERVICES MANAGER pm1 [place], [place] mw2 Ariana Miranda, RN RN st1
--- NOTE | 2021-09-10 02:42 | ER ---
Nurse's Notes [facility] Name: Bijal Andrade Age: 25 yrs Sex: Female : 1995 Arrival Date: 09/10/2021 Time: :23 Bed 7 Private MD: Diagnosis: UTI/ Urinary tract infection, site not specified Presentation: 09/10 01:55 Chief complaint: Patient states: the patient is complaining of lower back pain, lower st1 abdominal pain, nausea and painful urination. she states she took a at home urine test that showed a UTI. Coronavirus screen: Vaccine status:. Initial Sepsis Screen: Does the patient meet any 2 criteria? No. Patient's initial sepsis screen is negative. Does the patient have a suspected source of infection? Yes:. Risk Assessment: Do you want to hurt yourself or someone else? Patient reports no desire to harm self or others. Onset of symptoms was September 10, 2021. 01:55 Method Of Arrival: Ambulatory st1 01:55 Acuity: JUANIS 3 st1 02:50 Ebola Screen: No symptoms or risks identified at this time. st1 Triage Assessment: 02:03 General: Appears in no apparent distress. uncomfortable, slender, well groomed, st1 Behavior is calm, cooperative. Pain: Complains of pain in lower back and lower abdomen. Neuro: No deficits noted. Respiratory: No deficits noted. GI: Reports nausea. : Reports pain with urination. TOBACCO DRUMMER: 02:03 LMP N/A - control method st1 Historical: - Allergies: 02:03 bandaids; st1 02:03 Tape; st1 - Home Meds: 02:03 Nexium 40 mg Oral cpDR 1 cap once daily [Active]; st1 - PMHx: 02:03 Anemia; Depression; GERD; HYDRONEPHROSIS; Migraines; st1 - Immunization history:: Client reports having NOT received the Covid vaccine. Flu vaccine status is unknown. - Social history:: Smoking status: Patient reports the use of cigarette tobacco products, smokes one pack cigarettes per day. Patient uses alcohol, only on a social basis. Patient/guardian denies using. Screenin:12 Abuse screen: Denies threats or abuse. Nutritional screening: No deficits noted. st1 Tuberculosis screening: No symptoms or risk factors identified. Fall Risk None identified. No fall in past 12 months (0 pts). No secondary diagnosis (0 pts). No IV (0 pts). Ambulatory Aid- None/Bed Rest/Nurse Assist (0 pts). Gait- Normal/Bed Rest/Wheelchair (0 pts) Mental Status- Oriented to own ability (0 pts). Total Barnes Fall Scale indicates No Risk (0-24 pts). Assessment: 02:10 Reassessment: please see triage assessment. General:. st1 02:50 GI: Bowel sounds present X [address] st1 Vital Signs: 02:03 BP 125 / 74; Pulse 99; Resp 16; Temp 98.8; Pulse Ox 98% on R/A; Weight 83.91 kg; Height st1 5 ft. 5 in. (165.10 cm); Pain 6/10; 02:49 BP 120 / 70; Pulse 65; Resp 16; Pulse Ox 100% on R/A; st1 02:03 Body Mass Index 30.79 (83.91 kg, 165.10 cm) st1 ED Course: 01:23 Patient arrived in ED. es 01:27 Go Montero NP is PHCP. pm1 01:27 Dieudonne Valdez MD is Attending Physician. pm1 01:44 Chauncey Mosley, BOBBY is Primary Nurse. as6 01:55 Primary Nurse role handed off by Chauncey Mosley, BOBBY st1 01:55 Ariana Miranda, BOBBY is Primary Nurse. st1 02:02 Triage completed. st1 02:03 Arm band placed on right wrist. st1 02:12 Patient has correct armband on for positive identification. Placed in gown. Bed in low st1 position. Call light in reach. Side rails up X 1. Adult w/ patient. field operations technician on. Pulse ox on. Door closed. Warm blanket given. 02:12 No provider procedures requiring assistance completed. st1 02:15 Urine Microscopic Only Sent. st1 02:15 Urine --Ancillary (enter results) Sent. st1 02:50 Patient did not have IV access during this emergency room visit. st1 Administered Medications: 02:27 Drug: Rocephin (cefTRIAXone) 1 grams Route: IM; Site: right gluteus; st1 02:27 Drug: Zofran (Ondansetron) 4 mg Route: PO; st1 02:27 Drug: Ketorolac 60 mg Route: IM; Site: right gluteus; st1 Outcome: 02:42 Discharge ordered by MD. pm1 02:50 Discharged to home ambulatory. st1 02:50 Condition: good 02:50 Discharge instructions given to patient, Instructed on discharge instructions, follow up and referral plans. no drinking with medication, medication usage, Demonstrated understanding of instructions, follow-up care, medications, Prescriptions given X 3. 02:51 Patient left the ED. st1 Addendum: 09/13/2021 13:57 Addendum: Culture Results: Positive urine culture. Bacteria is resistant to, has a a5 intermediate sensitivity, or is not tested against prescribed antibiotics. Report given to GOLDEN for further evaluation and then to oyster worker for follow up with patient. Prescription called-in to pharmacy of choice. Called in prescription to [facility] pharmacy in [place], [place], called in Augmentin 875mg BID x 7 days per C.TYRONE Adame, pt was also instructed to stop taking Bactrim. Signatures: Sapna Ruiz Audri, RN RN aa5 Go Montero, BILLIE TEAROOM HOSTESS pm1 Chauncey Mosley RN RN as6 Ariana Miranda RN RN st1
[2021-09-10 03:04] LABS: Urine RBC <5 /HPF (NONE SEEN)
[2021-09-10 03:05] LABS: Urine Amorphous Sediment 1+ /HPF (NONE SEEN); Urine Bacteria 20-50 /HPF (<20); Urine Urothelial Cells <5 /HPF (NONE SEEN)
[2021-09-10 03:36] VITALS: TEMP 98.8
[2021-09-10 03:38] VITALS: BP 120/70; O2SAT 100
== END 2021-09-10 02:51 | disposition home or self-care (01) ==
LOC: ER 00:37
DX: N39.0 Urinary tract infection, site not specified (principal); F17.210 Nicotine dependence, cigarettes, uncomplicated; K21.9 Gastro-esophageal reflux disease without esophagitis; Z91.048 Other nonmedicinal substance allergy status
CPT/HCPCS: 81003; 81015; 81025; 87077; 87086; 87088; 87186; 96372; 99284

== ENCOUNTER 2022-12-31 05:12 | Emergency (ER) | payer BC ==
--- OUTSIDE RECORDS SUMMARY | 2022-12-31 05:16 | XMS REPORT | Continuity of Care Document ---
:[address] [facility] t Address [address] [place] [address] Care Team Providers Name Role Phone Gaby Rouse Primary Care Physician Lianet Mckinley Attending Clinician [phone] LIANET VELEZ Attending Clinician Unavailable Doctor Unassigned, [place] Attending Clinician Unavailable SARA FITZGERALD Attending Clinician Unavailable Audra Sparks Attending Clinician Sara Fitzgerald DO Attending Clinician CARLOS GOMEZ Attending Clinician Unavailable SAURABH BO Attending Clinician Unavailable Saurabh Bo MD Attending Clinician Antoinette Nelson Attending Clinician ANTOINETTE PERKINS Attending Clinician Unavailable Carlos Bloom Attending Clinician Josafat Wong DO Attending Clinician 2, [facility] Attending Clinician Unavailable Carleen Pritchard MD Attending Clinician CARLEEN PRITCHARD Attending Clinician Unavailable MANAN SPEARS Attending Clinician Unavailable Gabriele RN, Kellie Attending Clinician Unavailable Care, [facility] Adult Urgent Attending Clinician Unavailable Nurse, [facility] Urgent Attending Clinician Unavailable Unknown, Attending Attending Clinician Unavailable UNKNOWN, ATTENDING Attending Clinician Unavailable Lab, [facility] Attending Clinician Unavailable Payers Payer Name Policy Type Policy Number Effective Date Expiration Date S ouraubrey Problems Condition Condition Condition Status Onset Resolution Last Treating Co mments Source Name Details Category Date Date Treatment Clinician Date Other Other Disease Active Univers general general 3-13 [place] of [place] advice 00 [place] dical for for Branch contracept contracept ynes ynes management management History of History of Disease Active U nivers herpes herpes 3-13 [place] LGSIL on LGSIL on Disease Active 2021-06 Overview: Un abelardo Pap smear Pap smear 2-15 Formattin i ty of of cervix of cervix 00:00: [place] 00 note Medical might be Branch different from the original. Repeat pap in 1 year 05/2023 Obesity Obesity Disease Active Univers (BMI (BMI 2-23 ity of 30-39.9) 30-39.9) 00:00: [place] [facility] Branch Nexplanon Nexplanon Disease Active Uni vers insertion insertion 5-21 ity of 00:: [place] [facility] Situationa Situationa Disease Active U nivers l l 5-21 [place] of depression [place] Nexplanon Nexplanon Disease Active Uni vers in place in place 5-21 ity of 00:00: Medical Branch History of History of Disease Active U nivers IBS IBS 9-26 ity of 00:00: [place] [facility] Polyp of Polyp of Disease Active Unive rs colon, colon, 1-17 ity of unspecifie unspecifie [place] of d part of 00 Medi luis f colon, colon, Branch unspecifie unspecifie d type d type Tobacco Tobacco Disease Active Univers use use 5-12 ity of 00:00: [place] [facility] Gastroesop Gastroesop Disease Active 2016-0 U fawn palacios hageal 5-12 ity of reflux reflux 00:00: [place] disease disease 00 Medical without without Branch esophagiti esophagiti s s Allergies, Adverse Reactions, Alerts Allergy Allergy Status Severity Reaction(s) Onset Inactive Treating Comm ents Source Name Type Date Date Clinician NO KNOWN Drug Active Univers ALLERGIE Class ity of S [facility] Social History Social Habit Start Date Stop Date Quantity Comments Source History of tobacco 2010-03-17 Cigarette Smoker University of use 00:00:00 [facility] Gender identity Universit y of [facility] Sexual orientation Univer sity of [facility] History SDOH University o f Alcohol Frequency [facility] edical Branch History [facility] University o f Alcohol Std Drinks [facility] History [facility] University o f Alcohol Binge [facility] al Branch Exposure to 2022-10-31 2022-11-10 Not sure University of SARS-CoV-2 (event) 00:00:00 13:32:00 [facility] Alcohol intake 2022-09-01 2022-09-01 0 /d University of 00:00:00 00:00:00 [facility] History of Social 2022-05-21 2022-05-21 Univers ity of function 00:00:00 00:00:00 [facility] Cigarettes smoked 2022-05-21 2022-05-21 Univers ity of current (pack per 00:00:00 00:00:[address] [facility] ) - Reported [place] Tobacco Comment 2022-05-21 2022-05-21 she smokes 5 Univers ity of 00:00:00 00:00:00 cigarettes to [address] [facility] ppd, she says Branch depends how she's feeling Tobacco use and 2022-05-21 2022-05-21 Smokeless tobacco Un iversity of exposure 00:00:00 00:00:00 non-user [facility] Alcohol Comment 2017-03-20 2017-03-20 Occasionally Univers ity of 00:00:00 00:00:00 [facility] Sex Assigned At [birth year] Universit y of 00:00:00 00:00:00 [facility] Smoking Status Start Date Stop Date Source Smokes tobacco daily 2022-05-21 00:00:00 Univers ity of [facility] Medications Ordered Filled Start Stop Current Ordering Indication Dosage Frequency Signature Comments Components Source Medication Medication Date Date Medication? Clinician (SIG) Name Name valACYclovi Yes [id number] 500mg Take 1 Univers r (VALTREX) 7-11 tablet by ity of 500 mg 00:00: mouth in [place] tablet 00 the Medical morning. Branch acyclovir Yes [id number] 400mg Take 1 Univers 400 mg 7-06 tablet by ity of tablet 00:00: mouth in [place] [address] the Medical morning Branch and 1 tablet in the evening. acyclovir Yes [id number] 400mg Take 1 Univers 400 mg 7-06 tablet by ity of tablet 00:00: mouth in [place] 00 the Medical morning Branch and 1 tablet in the evening. acyclovir Yes [id number] 400mg Take 1 Univers 400 mg 7-06 tablet by ity of tablet 00:00: mouth in [place] [address] the Medical morning Branch and 1 tablet in the evening. acyclovir Yes [id number] 400mg Take 1 Univers 400 mg 7-06 tablet by ity of tablet 00:00: mouth in [place] [address] the Medical morning Branch and 1 tablet in the evening. etonogestre 2022- No [id number] 68mg Univers L 11-11- ity of (NEXPLANON) 22:15: 21:24 [place] implant 68 00 :00 [facility] etonogestre 2022- No [id number] 68mg 68 mg, Univers L 11-11- Subdermal, ity of (NEXPLANON) 22:15: 21:24 ONCE NOW, [place] implant 68 00 :00 1 dose, On Med ical mg e [place] 11/11/22 at 1715, Routine
Use approved by: [employer] etonogestre 2022- No [id number] 68mg Univers L 11-11- ity of (NEXPLANON) 22:15: 21:24 [place] implant 68 00 :00 [facility] etonogestre 2022- No [id number] 68mg 68 mg, Univers L 11-11- Subdermal, ity of (NEXPLANON) 22:15: 21:24 ONCE NOW, [place] implant 68 00 :00 1 dose, On Med ical mg e Branch 11/11/22 at 1715, Routine
Use approved by: [employer]ATE valACYclovi 2022- No [id number] 500mg Take 1 Univers r (VALTREX) 3-13 - tablet by it y of 500 mg 00:00: 04:59 mouth in [place] tablet 00 :[address] [facility] [place] for 30 days. valACYclovi 2022- No [id number] 500mg Take 1 Univers r (VALTREX) 3-10-02 tablet by it y of 500 mg 00:00: 04:59 mouth in [place] tablet 00 :[address] [facility] [place] for 30 days. valACYclovi 2022- No [id number] 500mg Take 1 Univers r (VALTREX) 3-10-02 tablet by it y of 500 mg 00:00: 04:59 mouth in [place] tablet 00 :[address] [facility] [place] for 30 days. valACYclovi 2022- No [id number] 500mg Take 1 Univers r (VALTREX) 3-10-02 tablet by it y of 500 mg 00:00: 04:59 mouth in [place] tablet 00 :[address] [facility] [place] for 30 days. acyclovir 2021-06 Yes [id number] 400mg Take 1 Univers 400 mg 2-15 tablet by ity of tablet 00:00: mouth in [address] and 1 tablet in the evening. acyclovir 2021-06 Yes [id number] 400mg Take 1 Univers 400 mg 2-15 tablet by ity of tablet 00:00: mouth in [address] and 1 tablet in the evening. acyclovir 2021-06 Yes [id number] 400mg Take 1 Univers 400 mg 2-15 tablet by ity of tablet 00:00: mouth in [address] and 1 tablet in the evening. acyclovir 2021-06 Yes [id number] 400mg Take 1 Univers 400 mg 2-15 tablet by ity of tablet 00:00: mouth in [address] and 1 tablet in the evening. acyclovir 2021-06 Yes [id number] 400mg Take 1 Univers 400 mg 2-15 tablet by ity of tablet 00:00: mouth in [place] 00 the Medical morning Branch and 1 tablet in the evening. acyclovir 2021- Yes [id number] 400mg Take 1 Univers 400 mg 2-15 tablet by ity of tablet 00:00: mouth in [place] [address] the [facility] morning Branch and 1 tablet in the evening. acyclovir 2021-1 Yes [id number] 400mg Take 1 Univers 400 mg 2-15 tablet by ity of tablet 00:00: mouth in [place] [address] the [facility] morning Dugger and 1 tablet in the evening. acyclovir 2021- Yes [id number] 400mg Take 1 Univers 400 mg 2-15 tablet by ity of tablet 00:00: mouth in [place] [address] the [facility] morning Dugger and 1 tablet in the evening. acyclovir 2021- Yes [id number] 400mg Take 1 Univers 400 mg 2-15 tablet by ity of tablet 00:00: mouth in [place] [address] the [facility] morning Dugger and 1 tablet in the evening. acyclovir 2021- Yes [id number] 400mg Take 1 Univers 400 mg 2-15 tablet by ity of tablet 00:00: mouth in [address] morning Dugger and 1 tablet in the evening. acyclovir 2021-06 Yes [id number] 400mg Take 1 Univers 400 mg 2-15 tablet by ity of tablet 00:00: mouth in [place] [address] the [facility] morning Dugger and 1 tablet in the evening. acyclovir 2021-1 Yes [id number] 400mg Take 1 Univers 400 mg 2-15 tablet by ity of tablet 00:00: mouth in [place] [address] the [facility] morning Dugger and 1 tablet in the evening. acyclovir 2021-1 Yes [id number] 400mg Take 1 Univers 400 mg 2-15 tablet by ity of tablet 00:00: mouth in [address] morning Dugger and 1 tablet in the evening. acyclovir 2021-1 Yes [id number] 400mg Take 1 Univers 400 mg 2-15 tablet by ity of tablet 00:00: mouth in [address] morning Dugger and 1 tablet in the evening. acyclovir 2021-1 Yes [id number] 400mg Take 1 Univers 400 mg 2-15 tablet by ity of tablet 00:00: mouth in [address] morning Dugger and 1 tablet in the evening. acyclovir 2021-1 Yes [id number] 400mg Take 1 Univers 400 mg 2-15 tablet by ity of tablet 00:00: mouth in [place] 00 the Medical morning Branch and 1 tablet in the evening. acyclovir 2021-06 Yes [id number] 400mg Take 1 Univers 400 mg 2-15 tablet by ity of tablet 00:00: mouth in [place] 00 the Medical morning Branch and 1 tablet in the evening. acyclovir 2021-06 Yes [id number] 400mg Take 1 Univers 400 mg 2-15 tablet by ity of tablet 00:00: mouth in [place] 00 the Medical morning Branch and 1 tablet in the evening. acyclovir 2021-06 Yes [id number] 400mg Take 1 Univers 400 mg 2-15 tablet by ity of tablet 00:00: mouth in [place] 00 the Medical morning Branch and 1 tablet in the evening. acyclovir 2021-06 Yes [id number] 400mg Take 1 Univers 400 mg 2-15 tablet by ity of tablet 00:00: mouth in [place] 00 the Medical morning Branch and 1 tablet in the evening. acyclovir 2021-06- No [id number] 400mg Take 1 Univers 400 mg 2-02 12-13 tablet by ity of tablet 00:00: 05:59 mouth in [place] 00 :00 the Medical morning Branch and 1 tablet at noon and 1 tablet in the evening. Do all this for 10 days. acyclovir 2021-06- No [id number] 400mg Take 1 Univers 400 mg 2-02 12-13 tablet by ity of tablet 00:00: 05:59 mouth in [place] 00 :00 the Medical morning Branch and 1 tablet at noon and 1 tablet in the evening. Do all this for 10 days. acyclovir 2021-06- No [id number] 400mg Take 1 Univers 400 mg 2-02 12-13 tablet by ity of tablet 00:00: 05:59 mouth in [place] 00 :00 the Medical morning Branch and 1 tablet at noon and 1 tablet in the evening. Do all this for 10 days. acyclovir 2021-06- No [id number] 400mg Take 1 Univers 400 mg 2-02 12-13 tablet by ity of tablet 00:00: 05:59 mouth in [place] 00 :00 the Medical morning Branch and 1 tablet at noon and 1 tablet in the evening. Do all this for 10 days. acyclovir 2021-06- No [id number] 400mg Take 1 Univers 400 mg 07-24 tablet by ity of tablet 00:00: 05:59 mouth in [place] 00 :00 the Medical morning Branch and 1 tablet at noon and 1 tablet in the evening. Do all this for 10 days. lidocaine 2 2021-06- No [id number] 5mL Apply 2.5 Univers % mucosal 07-21 12- Inches to ity of jelly 00:00: 05:59 area(s) [place] 00 :00 once now Medical for 1 Branch dose. lidocaine 2 2021-06- No [id number] 5mL Apply 2.5 Univers % mucosal 07-21 12- Inches to ity of jelly 00:00: 05:59 area(s) [place] 00 :00 once now Medical for 1 Branch dose. metroNIDAZO 2020-06- No [id number] 500mg Take 1 Univers LE (FLAGYL) 07-15 tablet by it y of 500 mg 00:00: 05:59 mouth 2 [place] tablet 00 :00 (two) Medical times Branch daily for 7 days. esomeprazol 2020-06 Yes Take by Uni vers e magnesium 1-18 mouth. ity of (NEXIUM 08:38: [place] ORAL) 34 Medical Branch esomeprazol 2020-06 Yes Take by Uni vers e magnesium 1-18 mouth. ity of (NEXIUM 08:38: [place] ORAL) 34 Medical Branch esomeprazol 2020-06 Yes Take by Uni vers e magnesium 1-18 mouth. ity of (NEXIUM 08:38: [place] ORAL) 34 Medical Branch esomeprazol 2020-06 Yes Take by Uni vers e magnesium 1-18 mouth. ity of (NEXIUM 08:38: [place] ORAL) 34 Medical Branch esomeprazol 2020-06 Yes Take by Uni vers e magnesium 1-18 mouth. ity of (NEXIUM 08:38: [place] ORAL) Medical Branch esomeprazol 2020-06 Yes Take by Uni vers e magnesium 1-18 mouth. ity of (NEXIUM 08:38: [place] ORAL) 34 Medical Branch esomeprazol 2020-06 Yes Take by Uni vers e magnesium 1-18 mouth. ity of (NEXIUM 08:38: [place] ORAL) 34 Medical Branch esomeprazol 2020-06 Yes Take by Uni vers e magnesium 1-18 mouth. ity of (NEXIUM 08:38: [place] ORAL) 34 Medical Branch esomeprazol 2020-06 Yes Take by Uni vers e magnesium 1-18 mouth. ity of (NEXIUM 08:38: [place] ORAL) 34 Medical Branch esomeprazol 2020-06 Yes Take by Uni vers e magnesium 1-18 mouth. ity of (NEXIUM 08:38: [place] ORAL) 34 Medical Branch esomeprazol 2020-06 Yes Take by Uni vers e magnesium 1-18 mouth. ity of (NEXIUM 08:38: [place] ORAL) 34 Medical Branch esomeprazol 2020-06 Yes Take by Uni vers e magnesium 1-18 mouth. ity of (NEXIUM 08:38: [place] ORAL) 34 Medical Branch esomeprazol 2020-06 Yes Take by Uni vers e magnesium 1-18 mouth. ity of (NEXIUM 08:38: [place] ORAL) 34 Medical Branch esomeprazol 2020-06 Yes Take by Uni vers e magnesium 1-18 mouth. ity of (NEXIUM 08:38: [place] ORAL) 34 Medical Branch esomeprazol 2020-06 Yes Take by Uni vers e magnesium 1-18 mouth. ity of (NEXIUM 08:38: [place] ORAL) 34 Medical Branch esomeprazol 2020-06 Yes Take by Uni vers e magnesium 1-18 mouth. ity of (NEXIUM 08:38: [place] ORAL) 34 Medical Branch esomeprazol 2020-06 Yes Take by Uni vers e magnesium 1-18 mouth. ity of (NEXIUM 08:38: [place] ORAL) 34 Medical Branch esomeprazol 2020-06 Yes Take by Uni vers e magnesium 1-18 mouth. ity of (NEXIUM 08:38: [place] ORAL) 34 Medical Branch esomeprazol 2020-06 Yes Take by Uni vers e magnesium 1-18 mouth. ity of (NEXIUM 08:38: [place] ORAL) 34 Medical Branch esomeprazol 2020-06 Yes Take by Uni vers e magnesium 1-18 mouth. ity of (NEXIUM 08:38: [place] ORAL) 34 Medical Branch esomeprazol 2020-06 Yes Take by Uni vers e magnesium 1-18 mouth. ity of (NEXIUM 08:38: [place] ORAL) 34 Medical Branch esomeprazol 2020-06 Yes Take by Uni vers e magnesium 1-18 mouth. ity of (NEXIUM 08:38: [place] ORAL) 34 Medical Branch esomeprazol 2020-06 Yes Take by Uni vers e magnesium 1-18 mouth. ity of (NEXIUM 08:38: [place] ORAL) 34 Medical Branch esomeprazol 2020-06 Yes Take by Uni vers e magnesium 1-18 mouth. ity of (NEXIUM 08:38: [place] ORAL) 34 Medical Branch esomeprazol 2020-06 Yes Take by Uni vers e magnesium 1-18 mouth. ity of (NEXIUM 08:38: [place] ORAL) 34 Medical Branch esomeprazol 2020-06 Yes Take by Uni vers e magnesium 1-18 mouth. ity of (NEXIUM 08:38: [place] ORAL) 34 Medical Branch esomeprazol 2020-06 Yes Take by Uni vers e magnesium 1-18 mouth. ity of (NEXIUM 08:38: [place] ORAL) 34 Medical Branch esomeprazol 2020-06 Yes Take by Uni vers e magnesium 1-18 mouth. ity of (NEXIUM 08:38: [place] ORAL) 34 Medical Branch esomeprazol 2020-06 Yes Take by Uni vers e magnesium 1-18 mouth. ity of (NEXIUM 08:38: [place] ORAL) 34 Medical Branch esomeprazol 2020-06 Yes Take by Uni vers e magnesium 1-18 mouth. ity of (NEXIUM 08:38: [place] ORAL) 34 Medical Branch esomeprazol 2020-06 Yes Take by Uni vers e magnesium 1-18 mouth. ity of (NEXIUM 08:38: [place] ORAL) 34 Medical Branch esomeprazol 2020-06 Yes Take by Uni vers e magnesium 1-18 mouth. ity of (NEXIUM 08:38: [place] ORAL) 34 Medical Branch esomeprazol 2020-06 Yes Take by Uni vers e magnesium 1-18 mouth. ity of (NEXIUM 08:38: [place] ORAL) 34 Medical Branch acetaminoph 2020- No Unive rs en-codeine 03-1118 ity of 300-30 mg 00:00: 00:00 [place] tablet 00 :00 Medical Branch phentermine 2020- No Unive rs 37.5 mg 02-20 ity of tablet 00:00: 00:00 [place] 00 :00 Medical Branch amoxicillin 2020- No [id number] 875mg Take 1 Univers 875 mg 08-14 tablet by ity of tablet 00:00: 00:00 mouth 2 [place] 00 :00 (two) Medical times Branch daily. albuterol 2019-06- No INHALE 1 2 U nivers 90 07-2818 PUFFS BY ity of mcg/actuati 00:00: 00:00 [place]TH [place] inhaler 00 :00 EVERY 4 6 Medi luis f HOURS Branch esomeprazol 2020- No [id number] 40mg Take 1 Univers e (NEXIUM) 11-09 capsule by it y of 40 mg 00:00: 00:00 mouth [place] capsule 00 :00 daily with Medica l breakfast. Branch ibuprofen 2020- No [id number] 600mg Take 1 Univers 600 mg 10-22 tablet by ity of tablet 00:00: 00:00 mouth [place] 00 :00 every 6 Medical (six) Branch hours as needed for Pain (scale 1-3) or Pain (scale 4-6) (Pain). Take with food or milk. Immunizations Ordered Filled Immunization Date Status Comments [facility] e Immunization Name Name Influenza Virus 2022-05-21 Completed Universit y of Vaccine Quad IM, 00:00:00 [place] Me dical Preserv and ABX Branch Free 6 MO-64 YRS Influenza Virus 2022-05-21 Completed Universit y of Vaccine Quad IM, 00:00:00 [place] Me dical Preserv and ABX Branch Free 6 MO-64 YRS Influenza Virus 2022-05-21 Completed Universit y of Vaccine Quad IM, 00:00:00 [place] Me dical Preserv and ABX Branch Free 6 MO-64 YRS Influenza Virus 2022-05-21 Completed Universit y of Vaccine Quad IM, 00:00:00 [place] Me dical Preserv and ABX Branch Free 6 MO-64 YRS Influenza Virus 2022-05-21 Completed Universit y of Vaccine Quad IM, 00:00:00 [place] Me dical Preserv and ABX Branch Free 6 MO-64 YRS Influenza Virus 2022-05-21 Completed Universit y of Vaccine Quad IM, 00:00:00 [place] Me dical Preserv and ABX Branch Free 6 MO-64 YRS Influenza Virus 2022-05-21 Completed Universit y of Vaccine Quad IM, 00:00:00 [place] Me dical Preserv and ABX Branch Free 6 MO-64 YRS Influenza Virus 2022-05-21 Completed Universit y of Vaccine Quad IM, 00:00:00 [place] Me dical Preserv and ABX Branch Free 6 MO-64 YRS Influenza Virus 2022-05-21 Completed Universit y of Vaccine Quad IM, 00:00:00 [place] Me dical Preserv and ABX Branch Free 6 MO-64 YRS Influenza Virus 2022-05-21 Completed Universit y of Vaccine Quad IM, 00:00:00 [place] Me dical Preserv and ABX Branch Free 6 MO-64 YRS Influenza Virus 2022-05-21 Completed Universit y of Vaccine Quad IM, 00:00:00 [place] Me dical Preserv and ABX Branch Free 6 MO-64 YRS Influenza Virus 2022-05-21 Completed Universit y of Vaccine Quad IM, 00:00:00 [place] Me dical Preserv and ABX Branch Free 6 MO-64 YRS Influenza Virus 2022-05-21 Completed Universit y of Vaccine Quad IM, 00:00:00 [place] Me dical Preserv and ABX Branch Free 6 MO-64 YRS Influenza Virus 2022-05-21 Completed Universit y of Vaccine Quad IM, 00:00:00 [place] Me dical Preserv and ABX Branch Free 6 MO-64 YRS Influenza Virus 2022-05-21 Completed Universit y of Vaccine Quad IM, 00:00:00 [place] Me dical Preserv and ABX Branch Free 6 MO-64 YRS Influenza Virus 2022-05-21 Completed Universit y of Vaccine Quad IM, 00:00:00 [place] Me dical Preserv and ABX Branch Free 6 MO-64 YRS Influenza Virus 2022-05-21 Completed Universit y of Vaccine Quad IM, 00:00:00 [place] Me dical Preserv and ABX Branch Free 6 MO-64 YRS Influenza Virus 2022-05-21 Completed Universit y of Vaccine Quad IM, 00:00:00 [place] Me dical Preserv and ABX Branch Free 6 MO-64 YRS Influenza Virus 2022-05-21 Completed Universit y of Vaccine Quad IM, 00:00:00 [place] Me dical Preserv and ABX Branch Free 6 MO-64 YRS Influenza Virus 2022-05-21 Completed Universit y of Vaccine Quad IM, 00:00:00 [place] Me dical Preserv and ABX Branch Free 6 MO-64 YRS Influenza Virus 2022-05-21 Completed Universit y of Vaccine Quad IM, 00:00:00 [place] Me dical Preserv and ABX Branch Free 6 MO-64 YRS Influenza Virus 2022-05-21 Completed Universit y of Vaccine Quad IM, 00:00:00 [place] Me dical Preserv and ABX Branch Free 6 MO-64 YRS Influenza Virus 2022-05-21 Completed Universit y of Vaccine Quad IM, 00:00:00 [place] Me dical Preserv and ABX Branch Free 6 MO-64 YRS Influenza Virus 2022-05-21 Completed Universit y of Vaccine Quad IM, 00:00:00 [place] Me dical Preserv and ABX Branch Free 6 MO-64 YRS Influenza Virus 2022-05-21 Completed Universit y of Vaccine Quad IM, 00:00:00 [place] Me dical Preserv and ABX Branch Free 6 MO-64 YRS Influenza Virus 2022-05-21 Completed Universit y of Vaccine Quad IM, 00:00:00 [place] Me dical Preserv and ABX Branch Free 6 MO-64 YRS Influenza Virus 2022-05-21 Completed Universit y of Vaccine Quad IM, 00:00:00 [facility] dical Preserv and ABX Branch Free 6 MO-64 YRS HPV9 2021-05-09 Completed University of 00:00:00 [facility] HPV9 2021-05-09 Completed University of 00:00:00 [facility] HPV9 2021-05-09 Completed University of 00:00:00 [facility] HPV9 2021-05-09 Completed University of 00:00:00 [facility] HPV9 2021-05-09 Completed University of 00:00:00 [facility] HPV9 2021-05-09 Completed University of 00:00:00 [facility] HPV9 2021-05-09 Completed University of 00:00:00 [facility] HPV9 2021-05-09 Completed University of 00:00:00 [facility] HPV9 2021-05-09 Completed University of 00:00:00 [place] [facility] HPV9 2021-05-09 Completed University of 00:00:00 [place] [facility] HPV9 2021-05-09 Completed University of 00:00:00 [place] [facility] HPV9 2021-05-09 Completed University of 00:00:00 [place] [facility] HPV9 2021-05-09 Completed University of 00:00:00 [place] [facility] HPV9 2021-05-09 Completed University of 00:00:00 [place] [facility] HPV9 2021-05-09 Completed University of 00:00:00 [place] [facility] HPV9 2021-05-09 Completed University of 00:00:00 [place] [facility] HPV9 2021-05-09 Completed University of 00:00:00 [place] [facility] HPV9 2021-05-09 Completed University of 00:00:00 [place] [facility] HPV9 2021-05-09 Completed University of 00:00:00 [place] [facility] HPV9 2021-05-09 Completed University of 00:00:00 [place] [facility] HPV9 2021-05-09 Completed University of 00:00:00 [place] [facility] HPV9 2021-05-09 Completed University of 00:00:00 [place] [facility] HPV9 2021-05-09 Completed University of 00:00:00 [place] [facility] HPV9 2021-05-09 Completed University of 00:00:00 [place] [facility] HPV9 2021-05-09 Completed University of 00:00:00 [place] [facility] HPV9 2021-05-09 Completed University of 00:00:00 [place] [facility] HPV9 2021-05-09 Completed University of 00:00:00 [place] [facility] HPV9 2021-05-09 Completed University of 00:00:00 [place] [facility] HPV9 2021-05-09 Completed University of 00:00:00 [place] [facility] HPV9 2021-05-09 Completed University of 00:00:00 [place] [facility] HPV9 2021-05-09 Completed University of 00:00:00 [place] [facility] HPV9 2021-05-09 Completed University of 00:00:00 [place] [facility] HPV9 2021-05-09 Completed University of 00:00:00 [facility] Branch HPV9 2018-11-11 Completed University of 00:00:00 [facility] Branch HPV9 2018-11-11 Completed University of 00:00:00 [place] [facility] HPV9 2018-11-11 Completed [facility] 00:00:00 [facility] HPV9 2018-11-11 Completed [facility] 00:00:00 [facility] HPV9 2018-11-11 Completed [facility] 00:00:00 [facility] HPV9 2018-11-11 Completed [facility] 00:00:00 [facility] HPV9 2018-11-11 Completed [facility] 00:00:00 [facility] HPV9 2018-11-11 Completed [facility] 00:00:00 [facility] HPV9 2018-11-11 Completed University [facility] 00:00:00 [facility] HPV9 2018-11-11 Completed [facility] 00:00:00 [facility] HPV9 2018-11-11 Completed [facility] 00:00:00 [facility] HPV9 2018-11-11 Completed [facility] 00:00:00 [facility] HPV9 2018-11-11 Completed University [facility] 00:00:00 [facility] HPV9 2018-11-11 Completed University [facility] 00:00:00 [facility] HPV9 2018-11-11 Completed [facility] 00:00:00 [facility] HPV9 2018-11-11 Completed [facility] 00:00:00 [facility] HPV9 2018-11-11 Completed University [facility] 00:00:00 [facility] HPV9 2018-11-11 Completed University [facility] 00:00:00 [facility] HPV9 2018-11-11 Completed [facility] 00:00:00 [facility] HPV9 2018-11-11 Completed [facility] 00:00:00 [facility] HPV9 2018-11-11 Completed [facility] 00:00:00 [facility] HPV9 2018-11-11 Completed [facility] 00:00:00 [facility] HPV9 2018-11-11 Completed University [facility] 00:00:00 [facility] HPV9 2018-11-11 Completed [facility] 00:00:00 [facility] HPV9 2018-11-11 Completed [facility] 00:00:00 [facility] HPV9 2018-11-11 Completed [facility] 00:00:00 [facility] HPV9 2018-11-11 Completed University [facility] 00:00:00 [facility] HPV9 2018-11-11 Completed University [facility] 00:00:00 [facility] HPV9 2018-11-11 Completed University [facility] 00:00:00 [facility] HPV9 2018-11-11 Completed [facility] 00:00:00 [facility] HPV9 2018-11-11 Completed [facility] 00:00:00 [facility] HPV9 2018-11-11 Completed University [facility] 00:00:00 [facility] HPV9 2018-11-11 Completed University [facility] 00:00:00 [facility] TDAP 2018-08-05 Completed University [facility] 00:00:00 [facility] TDAP 2018-08-05 Completed [facility] 00:00:00 [facility] TDAP 2018-08-05 Completed University [facility] 00:00:00 [facility] TDAP 2018-08-05 Completed [facility] 00:00:00 [facility] TDAP 2018-08-05 Completed [facility] 00:00:00 [facility] TDAP 2018-08-05 Completed [facility] 00:00:00 [facility] TDAP 2018-08-05 Completed University of 00:00:00 [facility] TDAP 2018-08-05 Completed [facility] 00:00:00 [facility] TDAP 2018-08-05 Completed [facility] 00:00:00 [facility] TDAP 2018-08-05 Completed [facility] 00:00:00 [facility] TDAP 2018-08-05 Completed [facility] 00:00:00 [facility] TDAP 2018-08-05 Completed [facility] 00:00:00 [facility] TDAP 2018-08-05 Completed [facility] 00:00:00 [facility] TDAP 2018-08-05 Completed [facility] 00:00:00 [facility] TDAP 2018-08-05 Completed [facility] 00:00:00 [facility] TDAP 2018-08-05 Completed [facility] 00:00:00 [facility] TDAP 2018-08-05 Completed [facility] 00:00:00 [facility] TDAP 2018-08-05 Completed [facility] 00:00:00 [facility] TDAP 2018-08-05 Completed [facility] 00:00:00 [facility] TDAP 2018-08-05 Completed [facility] 00:00:00 [facility] TDAP 2018-08-05 Completed University of 00:00:00 [facility] TDAP 2018-08-05 Completed University [facility] 00:00:00 [facility] TDAP 2018-08-05 Completed [facility] 00:00:00 [facility] TDAP 2018-08-05 Completed University of 00:00:00 [facility] TDAP 2018-08-05 Completed University of 00:00:00 [facility] TDAP 2018-08-05 Completed University of 00:00:00 [facility] TDAP 2018-08-05 Completed University [facility] 00:00:00 [facility] TDAP 2018-08-05 Completed University of 00:00:00 [facility] TDAP 2018-08-05 Completed University of 00:00:00 [facility] TDAP 2018-08-05 Completed University of 00:00:00 [facility] TDAP 2018-08-05 Completed University of 00:00:00 [facility] TDAP 2018-08-05 Completed University of 00:00:00 [facility] TDAP 2018-08-05 Completed University of 00:00:00 [facility] Influenza Virus 2018-03-08 Completed Universit y of Vaccine 00:00:00 [facility] Influenza Virus 2018-03-08 Completed Universit y of Vaccine 00:00:00 [facility] Influenza Virus 2018-03-08 Completed Universit y of Vaccine 00:00:00 [facility] Influenza Virus 2018-03-08 Completed Universit y of Vaccine 00:00:00 [facility] Influenza Virus 2018-03-08 Completed Universit y of Vaccine 00:00:00 [facility] Influenza Virus 2018-03-08 Completed Universit y of Vaccine 00:00:00 [facility] Influenza Virus 2018-03-08 Completed Universit y of Vaccine 00:00:00 [facility] Influenza Virus 2018-03-08 Completed Universit y of Vaccine 00:00:00 [facility] Influenza Virus 2018-03-08 Completed Universit y of Vaccine 00:00:00 [facility] Influenza Virus 2018-03-08 Completed Universit y of Vaccine 00:00:00 [facility] Influenza Virus 2018-03-08 Completed Universit y of Vaccine 00:00:00 [facility] Influenza Virus 2018-03-08 Completed Universit y of Vaccine 00:00:00 [facility] Influenza Virus 2018-03-08 Completed Universit y of Vaccine 00:00:00 [facility] Influenza Virus 2018-03-08 Completed Universit y of Vaccine 00:00:00 [facility] Influenza Virus 2018-03-08 Completed Universit y of Vaccine 00:00:00 [facility] Influenza Virus 2018-03-08 Completed Universit y of Vaccine 00:00:00 [facility] Influenza Virus 2018-03-08 Completed Universit y of Vaccine 00:00:00 [facility] Influenza Virus 2018-03-08 Completed Universit y of Vaccine 00:00:00 [facility] Influenza Virus 2018-03-08 Completed Universit y of Vaccine 00:00:00 [facility] Influenza Virus 2018-03-08 Completed Universit y of Vaccine 00:00:00 [facility] Influenza Virus 2018-03-08 Completed Universit y of Vaccine 00:00:00 [facility] Influenza Virus 2018-03-08 Completed Universit y of Vaccine 00:00:00 [facility] Influenza Virus 2018-03-08 Completed Universit y of Vaccine 00:00:00 [facility] Influenza Virus 2018-03-08 Completed Universit y of Vaccine 00:00:00 [facility] Influenza Virus 2018-03-08 Completed Universit y of Vaccine 00:00:00 [facility] Influenza Virus 2018-03-08 Completed Universit y of Vaccine 00:00:00 [facility] Influenza Virus 2018-03-08 Completed Universit y of Vaccine 00:00:00 [facility] Influenza Virus 2018-03-08 Completed Universit y of Vaccine 00:00:00 [facility] Influenza Virus 2018-03-08 Completed Universit y of Vaccine 00:00:00 [facility] Influenza Virus 2018-03-08 Completed Universit y of Vaccine 00:00:00 [facility] Influenza Virus 2018-03-08 Completed Universit y of Vaccine 00:00:00 [facility] Influenza Virus 2018-03-08 Completed Universit y of Vaccine 00:00:00 [facility] Influenza Virus 2018-03-08 Completed Universit y of Vaccine 00:00:00 [facility] HPV9 2017-07-08 Completed University of 00:00:00 [facility] HPV9 2017-07-08 Completed University of 00:00:00 [facility] HPV9 2017-07-08 Completed University of 00:00:00 [facility] HPV9 2017-07-08 Completed University of 00:00:00 [facility] HPV9 2017-07-08 Completed University of 00:00:00 [facility] HPV9 2017-07-08 Completed University of 00:00:00 [facility] HPV9 2017-07-08 Completed University of 00:00:00 [facility] HPV9 2017-07-08 Completed University of 00:00:00 [facility] HPV9 2017-07-08 Completed University of 00:00:00 [facility] HPV9 2017-07-08 Completed [facility] 00:00:00 [facility] HPV9 2017-07-08 Completed [facility] 00:00:00 [facility] HPV9 2017-07-08 Completed [facility] of 00:00:00 [facility] HPV9 2017-07-08 Completed [facility] of 00:00:00 [facility] HPV9 2017-07-08 Completed University of 00:00:00 [facility] HPV9 2017-07-08 Completed [facility] of 00:00:00 [facility] HPV9 2017-07-08 Completed University of 00:00:00 [facility] HPV9 2017-07-08 Completed University of 00:00:00 [facility] HPV9 2017-07-08 Completed [facility] of 00:00:00 [facility] HPV9 2017-07-08 Completed [facility] of 00:00:00 [facility] HPV9 2017-07-08 Completed University of 00:00:00 [facility] HPV9 2017-07-08 Completed [facility] of 00:00:00 [facility] HPV9 2017-07-08 Completed [facility] of 00:00:00 [facility] HPV9 2017-07-08 Completed [facility] of 00:00:00 [facility] HPV9 2017-07-08 Completed University of 00:00:00 [facility] HPV9 2017-07-08 Completed University of 00:00:00 [facility] HPV9 2017-07-08 Completed University of 00:00:00 [facility] HPV9 2017-07-08 Completed University of 00:00:00 [facility] HPV9 2017-07-08 Completed University of 00:00:00 [facility] HPV9 2017-07-08 Completed University of 00:00:00 [facility] HPV9 2017-07-08 Completed [facility] of 00:00:00 [facility] HPV9 2017-07-08 Completed University of 00:00:00 [facility] HPV9 2017-07-08 Completed [facility] of 00:00:00 [facility] HPV9 2017-07-08 Completed University of 00:00:00 [facility] Vital Signs Vital Name Observation Time Observation Value Comments Source Systolic blood 2022-11-10 18:33:00 132 mm[Hg] Univer sity of pressure [facility] Diastolic blood 2022-11-10 18:33:00 76 mm[Hg] Unive rsity of pressure [facility] Heart rate 2022-11-10 18:33:00 86 /min [facility] Body temperature 2022-11-10 18:33:00 35.72 Nila Univ ers[facility] Respiratory rate 2022-11-10 18:33:00 18 /min Univ ers[facility] Body height 2022-11-10 18:33:00 165.1 cm [facility] Body weight 2022-11-10 18:33:00 90.946 kg [facility] BMI 2022-11-10 18:33:00 33.36 kg/m2 [facility] Heart rate 2022-09-01 18:31:00 84 /min [facility] [place] [facility] [place] Body temperature 2022-09-01 18:31:00 37 Nila [facility] Respiratory rate 2022-09-01 18:31:00 18 /min Univ ersity [facility] Body height 2022-09-01 18:31:00 165.1 cm [facility] Body weight 2022-09-01 18:31:00 93.078 kg [facility] BMI 2022-09-01 18:31:00 34.15 kg/m2 [facility] Systolic blood 2022-09-01 18:31:00 132 mm[Hg] Univer sity of pressure [facility] Diastolic blood 2022-09-01 18:31:00 80 mm[Hg] Unive rsity of pressure [facility] Systolic blood 2022-08-30 23:33:00 133 mm[Hg] Univer sity of pressure [facility] Diastolic blood 2022-08-30 23:33:00 84 mm[Hg] Unive rsity of pressure [facility] Heart rate 2022-08-30 23:33:00 81 /min [facility] Respiratory rate 2022-08-30 23:33:00 16 /min Univ ersity of [facility] Oxygen saturation in 2022-08-30 23:33:00 98 /min University of Arterial blood by [facility] Pulse oximetry Branch Body temperature 2022-08-30 21:17:00 37.39 Nila [facility] Body height 2022-08-30 21:17:00 165.1 cm [facility] Body weight 2022-08-30 21:17:00 90.719 kg [facility] BMI 2022-08-30 21:17:00 33.28 kg/m2 [facility] Systolic blood 2022-05-21 17:15:00 140 mm[Hg] Univer sity of pressure [facility] Diastolic blood 2022-05-21 17:15:00 86 mm[Hg] Unive rsity of pressure [facility] Heart rate 2022-05-21 17:15:00 101 /min [facility] Body temperature 2022-05-21 17:14:00 37.06 Nila [facility] Respiratory rate 2022-05-21 17:14:00 18 /min Univ [facility] Body height 2022-05-21 17:14:00 165.1 cm [facility] Body weight 2022-05-21 17:14:00 96.843 kg [facility] BMI 2022-05-21 17:14:00 35.53 kg/m2 [facility] Systolic blood 2021-05-09 14:35:00 119 mm[Hg] Univer sity of pressure [facility] Diastolic blood 2021-05-09 14:35:00 72 mm[Hg] Unive rsity of pressure [facility] Heart rate 2021-05-09 14:35:00 101 /min [facility] Body temperature 2021-05-09 14:29:00 36.83 Nila [facility] Respiratory rate 2021-05-09 14:29:00 16 /min Univ [facility] Body height 2021-05-09 14:29:00 165.1 cm [facility] Body weight 2021-05-09 14:29:00 82.146 kg [facility] BMI 2021-05-09 14:29:00 30.14 kg/m2 [facility] Procedures Procedure Date / Time Performing Clinician Source Performed POCT TEST 2022-11-10 18:37:00 Lianet Velez [facility] DISCLOSURE AND CONSENT, 2022-11-10 05:01:00 [facility] PROCED[facility] POCT TEST 2022-09-01 18:32:00 Lianet Velez [facility] URINALYSIS 2022-08-30 22:06:00 Sara Fitzgerald [facility] POCT TEST 2022-08-30 22:06:00 [facility] CONSENT/REFUSAL FOR 2022-08-30 21:05:00 Doctor Brian Ospina [facility] DIAGNOSIS AND TREATMENT [facility] PATIENT CORRESPONDENCE 2022-06-06 06:01:00 [facility] DOCUMENTATION) FLU VACC ([id number]), 6 2022-05-21 17:43:44 Lianet Velez [facility] [place]-66 YRS, .5ML, IM, QUAD Medica l Branch (FLUCELVAX) ASSIGNMENT OF BENEFITS 2022-05-21 16:48:25 Doctor Unassigned, Un [facility] [place] [facility] GARDASIL 9 (HPV 9V) 2021-05-09 14:42:06 Antoinette Perkins [facility] VACCINE [facility] POCT URINALYSIS W/O 2021-05-09 00:00:00 Antoinette Perkins [facility] SPECIFIC GRAVITY [facility] Encounters Start End Encounter Admission Attending Care Care Encounter Source Date/Time Date/Time Type Type Clinicians Facility Department ID 2022-12-30 2022-12-30 Telephone MARTINEZ Velez [id number] [id number] [facility] 00:00:00 00:00:00 Lianet Zhong ADMINISTRATIVE SUPPORT ASSOCIATE 350.1.13.10 ity [facility] 4.2.7.2.686 Hector as MATERNAL [id number] Med ical & CHILD [address] [place] [address] 2022-12-24 2022-12-24 Telephone MARTINEZ Velez 1.2.840.114 [id number] Univers 00:00:00 00:00:00 Lianet C ADMINISTRATIVE SUPPORT ASSOCIATE 350.1.13.10 ity of [facility] 4.2.7.2.686 [place] as MATERNAL [id number] [facility] & CHILD [address] [place] [address] 2022-11-28 2022-11-28 Outpatient R [facility] [id number] Univers 15:45:00 15:45:00 LIANET vargas o f [facility] 2022-11-10 2022-11-10 Outpatient R [facility] [id number] Univers 13:30:00 14:20:19 LIANET vargas o f [facility] 2022-11-10 2022-11-10 Office [facility] [id number] Univers 13:30:00 14:20:19 Visit Lianet Zhong ADMINISTRATIVE SUPPORT ASSOCIATE 350.1.13.10 ity of [address]686 [place] as MATERNAL [phone] [facility] & CHILD [address] [place] [address] 2022-11-10 2022-11-10 Orders Doctor TOPHER 1.2.840.114 [id number] Univers 00:00:00 00:00:00 Only Unassigned, SANDY 350.1.13.10 ity of [place] [facility] 4.2.7.2.686 [place] as [phone] [address] 2022-09-17 2022-09-17 [facility] 1.2.840.114 [id number] Univers 00:00:00 00:00:00 Lianet C ADMINISTRATIVE SUPPORT ASSOCIATE 350.1.13.10 ity of [facility] 4.2.7.2.686 [place] as MATERNAL [phone] [facility] & CHILD [address] [place] [address] 2022-09-02 2022-09-02 Letter [facility] [id number] Univers 00:00:00 00:00:00 (Out) Lianet C ADMINISTRATIVE SUPPORT ASSOCIATE 350.1.13.10 ity of [facility] 42.7.2.686 [place] as MATERNAL [id number] [address] 2022-09-01 2022-09-01 [facility] [id number] Univers 13:30:00 14:25:34 LIANET avrgas o f [facility] 2022-09-01 2022-09-01 Office [facility] [id number] Univers 13:30:00 14:25:34 Visit Lianet Zhong ADMINISTRATIVE SUPPORT ASSOCIATE 350.1.13.10 ity of [facility] 4.2.7.2.686 [place] as MATERNAL [phone] [facility] & CHILD [address] [place] [address] 2022-08-30 2022-08-30 Emergency X TAMMIE [facility] ERT [id number] Univers 15:19:00 17:36:00 SARA ity [facility] 2022-08-30 2022-08-30 Emergency Audra Eckert [facility] [id number] Univers 15:19:00 17:36:00 Sara Fitzgerald [place] 350.1.13.1 0 ity of [place] 4.2.7.2.686 [facility] [id number] [facility] 084 [place] 2022-08-29 2022-08-29 Telephone [facility] 1.2.840.114 [id number] Univers 00:00:00 00:00:00 Lianet Zhong ADMINISTRATIVE SUPPORT ASSOCIATE 350.1.13.10 ity of [facility] 4.2.7.2.686 [place] as MATERNAL [id number] [address] 2022-06-06 2022-06-06 Orders Doctor TOPHER 1.2.840.114 [id number] Univers 00:00:00 00:00:00 Only Unassigned, SANDY 350.1.13.10 ity of [place] [facility] 4.2.7.2.686 [place] as [id number] [facility] 009 [place] 2022-06-05 2022-06-05 Telephone [facility] 1.2.840.114 [id number] Univers 00:00:00 00:00:00 Lianet C ADMINISTRATIVE SUPPORT ASSOCIATE 350.1.13.10 ity of REGIONAL 4.2.7.2.686 [place] as MATERNAL [id number] [facility] & CHILD [address] [place] [address] 2022-06-05 2022-06-05 Telephone [facility] 1.2.840.114 [id number] Univers 00:00:00 00:00:00 Lianet C ADMINISTRATIVE SUPPORT ASSOCIATE 350.1.13.10 ity of REGIONAL 4.2.7.2.686 [place] as MATERNAL [id number] [facility] & CHILD [address] [place] [address] 2022-05-26 2022-05-26 Telephone [facility] 1.2.840.114 [id number] Univers 00:00:00 00:00:00 Lianet C ADMINISTRATIVE SUPPORT ASSOCIATE 350.1.13.10 ity of [facility] 4.2.7.2.686 [place] as MATERNAL [id number] [address] 2022-05-23 2022-05-23 Telephone [facility] 1.2.840.114 [id number] Univers 00:00:00 00:00:00 Lianet C ADMINISTRATIVE SUPPORT ASSOCIATE 350.1.13.10 ity of [facility] 4.2.7.2.686 [place] as MATERNAL [id number] [address] 2022-05-21 2022-05-21 [facility] [id number] [facility] 11:00:00 12:04:06 LIANET vargas o f [facility] 2022-05-21 2022-05-21 [facility] [id number] [facility] 11:00:00 12:04:06 Visit Lianet C ADMINISTRATIVE SUPPORT ASSOCIATE 350.1.13.10 ity of [facility] 4.2.7.2.686 [place] as MATERNAL [phone] [facility] & CHILD [address] [place] [address] 2022-05-21 2022-05-21 Orders Doctor OBANDO 1.2.840.114 [id number] Univers 00:00:00 00:00:00 Only Unassigned, SANDY 350.1.13.10 ity of [place] [facility] 4.2.7.2.686 Hector as [phone] [facility] 00[address] [place] 2022-05-12 2022-05-12 Outpatient Tonia GOMEZ [facility] [id number] Univers 08:30:00 08:30:00 CARLOS murphyy o f [facility] 2022-05-12 2022-05-12 Outpatient Tonia GOMEZ [facility] [id number] Univers 08:30:00 08:30:00 ALINEROGEFelipe katheriney o f [facility] 2021-10-13 2021-10-13 Emergency X [facility] ERT [id number] Univers 03:32:00 04:02:00 SAURABH vargas [facility] 2021-10-13 2021-10-13 Emergency [facility] [id number] Univers 03:32:00 04:02:00 Saurabh Yari [place] 350.1.13.10 ity [facility] 4.2.7.2.686 [facility] [id number] [facility] 084 [place] 2021-09-09 2021-09-09 [facility]phone [facility] 1.2.840.114 [id number] Univers 00:00:00 00:00:00 Antoinette Johns ADMINISTRATIVE SUPPORT ASSOCIATE 350.1.13.10 it y of [facility] 4.2.7.2.686 [place] as MATERNAL [id number] Med ical & CHILD [address] [place] [address] 2021-05-15 2021-05-15 Telephone [facility] 1.2.840.114 [id number] Univers 00:00:00 00:00:00 Antoinette Johns ADMINISTRATIVE SUPPORT ASSOCIATE 350.1.13.10 it y of [facility] 4.2.7.2.686 [place] as MATERNAL [id number] Med ical & CHILD 107 [facility] 2021-05-09 2021-05-09 Office [facility] [id number] Univers 08:15:14 09:09:39 Visit Antoinette Johns ADMINISTRATIVE SUPPORT ASSOCIATE 350.1.13.10 it y of [facility] 4.2.7.2.686 [place] as MATERNAL [id number] Med ical & CHILD [address] [place] [address] 2021-05-09 2021-05-09 Outpatient R GREGORIO [facility] [id number] Univers 08:00:00 09:09:39 ANTOINETTE vargas [facility] 2021-05-09 2021-05-09 Outpatient R GREGORIO [facility] [id number] Univers 08:00:00 08:00:00 ANTOINETTE vargas [facility] 2021-05-09 2021-05-09 Orders Doctor TOHPER 1.2.840.114 [id number] Univers 00:00:00 00:00:00 Only Unassigned, SANDY 350.1.13.10 ity of [place] [facility] 4.2.7.2.686 Hector as [phone] [address] 2020-10-31 2020-10-31 Office Patricia [facility] 1.2.840.114 [id number] 09:47:25 10:02:25 Visit Carlos Randall ADMINISTRATIVE SUPPORT ASSOCIATE 350.1.13.10 REGIONAL 4.2.7.2.686 MATERNAL [id number] & CHILD [address] [place] [address] 2020-10-31 2020-10-31 Office Patricia [facility] 1.2.840.114 [id number] Univers 09:47:25 10:02:25 Visit Carlos Randall ADMINISTRATIVE SUPPORT ASSOCIATE 350.1.13.10 ity of [facility] 4.2.7.2.686 [place] as MATERNAL [id number] Med ical & CHILD [address] [place] [address] 2020-10-31 2020-10-31 Outpatient R PATRICIA [facility] [id number] Univers 09:30:00 09:30:00 CARLOS vargas [facility] [facility] 2020-09-11 2020-09-11 Patient Marvin [facility] [id number] Univers 00:00:00 00:00:00 Outreach Josafat ROBLES 350.1.13.[address] [facility] [place] [phone] Tn dical [address] [place] [address] 2020-08-14 2020-08-14 Credit Administration Specialist 2, Adc Lab [facility] [id number] Univers 15:41:52 15:56:52 Visit Adsilvia, Carleen Celestin 350.1.13.10 ity of [place] [phone] [facility] [address] [employer] 2020-08-14 2020-08-14 Office [facility] [id number] Univers 14:37:13 15:25:33 Visit Carleen Celestin 350.1.13.10 ity of [place] [phone] [facility] [address] [employer] 2020-08-14 2020-08-14 [facility] [id number] Univers 14:30:00 14:30:00 CARLEEN vargas [facility] 2020-08-14 2020-08-14 Outpatient R TORY [facility] [id number] Univers 14:00:00 14:00:00 MANAN vargas [facility] 2020-08-14 2020-08-14 Telephone [facility] 1.2.840.114 [id number] Univers 00:00:00 00:00:00 Lianet Zhong ADMINISTRATIVE SUPPORT ASSOCIATE 350.1.13.10 ity of [facility] 4.2.7.2.686 [place] as MATERNAL [phone] [facility] ical & CHILD [address] [place] [address] 2020-08-14 2020-08-14 Letter [facility] [id number] Univers 00:00:00 00:00:00 (Out) Carleen Celestin 350.1.13.10 it[place] of [place] [phone] [facility] [address] [employer] 2020-02-10 2020-02-10 Outpatient R ROSIE [facility] [id number] Univers 13:30:00 13:30:00 LIANET lopez [facility] 2020-02-08 2020-02-08 [facility] [id number] Univers 15:15:00 15:15:00 LIANET puga f [facility] 2019-12-28 2019-12-28 Telephone GabrieleKellie [id number] Univers 00:00:00 00:00:00 SANDY 350.1.13.10 it y of HOSPITAL 4.2.7.2.686 [place] as [phone] [address] 2019-12-28 2019-12-28 Letter GabrieleKellie [id number] Univers 00:00:00 00:00:00 (Out) SANDY 350.1.13.10 it y of HOSPITAL 4.2.7.2.686 [place] as [phone] [address] 2019-12-28 2019-12-28 Telephone Care, Hector OBANDO 1.2.840.114 [id number] Univers 00:00:00 00:00:00 Adult SANDY 350.1.13.10 it y of [facility] 4.2.7.2.686 [place] as [phone] [address] 2019-12-26 2019-12-26 Laboratory Nurse, [facility]gent [facility] 1.2.8 [id number] Univers 16:11:45 16:48:51 Only Unknown, Attending [facility] 350.1.13.10 ity [facility] 4.2.7.2.686 [facility] [phone] [facility] 2019-12-26 2019-12-26 Outpatient R UNKNOWN, [facility] [id number] Univers 16:15:00 16:15:00 ATTENDING ity of [facility] 2019-12-19 2019-12-19 Refill Rosie [facility] [id number] Univers 00:00:00 00:00:00 Lianet Zhong ADMINISTRATIVE SUPPORT ASSOCIATE 350.1.13.10 ity [facility] 4.2.7.2.686 [place] as MATERNAL [phone] [facility] ical & CHILD [address] [place] [address] 2019-11-29 2019-11-29 Outpatient R ROSIE, [facility] [id number] Univers 13:15:00 13:15:00 LIANET vargas o f [facility] 2019-11-10 2019-11-10 Office [facility] [id number] Univers 14:23:07 14:53:07 Visit Lianet C ADMINISTRATIVE SUPPORT ASSOCIATE 350.1.13.10 ity of [facility] 4.2.7.2.686 [place] as MATERNAL [phone] [facility] & CHILD [address] [place] [address] 2019-11-10 2019-11-10 [facility] [id number] Univers 14:15:00 14:15:00 LIANET vargas o f [facility] 2019-11-10 2019-11-10 Orders Doctor TOPHER 1.2.840.114 [id number] Univers 00:00:00 00:00:00 Only Unassigned, SANDY 350.1.13.10 ity of [facility] 4.2.7.2.686 [place] as [phone] [address] 2019-11-08 2019-11-08 Office [facility] [id number] Univers 13:51:45 14:53:43 Visit Lianet Zhong ADMINISTRATIVE SUPPORT ASSOCIATE 350.1.13.10 ity of [facility] 4.2.7.2.686 [place] as MATERNAL [phone] [address] 2019-11-08 2019-11-08 [facility] [id number] Univers 13:30:00 13:30:00 LIANET lopez [facility] 2019-10-31 2019-10-31 Telephone Patricia [facility] [id number] Univers 00:00:00 00:00:00 Carlos R ADMINISTRATIVE SUPPORT ASSOCIATE 350.1.13.10 ity of [facility] 4.2.7.2.686 [place] as MATERNAL [phone] [address] 2019-10-28 2019-10-28 Credit Administration Specialist Lab, [facility] 1.2.840. 114 [id number] Univers 16:22:01 16:33:34 Visit Lianet Velez ADMINISTRATIVE SUPPORT ASSOCIATE 350.1.13. 10 ity of [facility] 4.2.7.2.686 [place] as MATERNAL [phone] Med ical & CHILD [address] [place] [address] 2019-10-28 2019-10-28 Outpatient R [facility] [id number] Univers 13:30:00 13:30:00 ity of [facility] 2019-10-28 2019-10-28 Telephone [facility] 1.2.840.114 [id number] Univers 00:00:00 00:00:00 Lianet C ADMINISTRATIVE SUPPORT ASSOCIATE 350.1.13.10 ity of [facility] 4.2.7.2.686 [place] as MATERNAL [phone] [facility] ical & CHILD [address] [place] [address] 2019-10-28 2019-10-28 Telephone [facility] 1.2.840.114 [id number] Univers 00:00:00 00:00:00 Lianet C ADMINISTRATIVE SUPPORT ASSOCIATE 350.1.13.10 ity of [facility] 4.2.7.2.686 [place] as MATERNAL [phone] [facility] & CHILD [address] [place] [address] 2019-10-18 2019-10-18 Telephone [facility] 1.2.840.114 [id number] Univers 00:00:00 00:00:00 Lianet C ADMINISTRATIVE SUPPORT ASSOCIATE 350.1.13.10 ity of [facility] 4.2.7.2.686 [place] as MATERNAL [phone] [facility] & CHILD [address] [place] [address] 2019-10-06 2019-10-06 Telemedici [facility] 1.2.840.114 [id number] Univers 12:52:51 15:03:09 ne Visit Lianet C ADMINISTRATIVE SUPPORT ASSOCIATE 350.1.13.10 ity of [facility] 4.2.7.2.686 [place] as MATERNAL [phone] [facility] ical & CHILD [address] [place] [address] 2019-10-06 2019-10-06 Outpatient R ROSIE [facility] [id number] Univers 15:00:00 15:00:00 LIANET ity o f [facility] 2019-09-29 2019-09-29 Telephone [facility] 1.2.840.114 [id number] Univers 00:00:00 00:00:00 Lianet C ADMINISTRATIVE SUPPORT ASSOCIATE 350.1.13.10 ity of [facility] 4.2.7.2.686 [place] as MATERNAL [phone] Med ical & CHILD [address] [place] [address] 2019-01-21 2019-01-21 Office Rosie [facility] [id number] Univers 15:58:44 17:01:24 Visit Lianet Zhong ADMINISTRATIVE SUPPORT ASSOCIATE 350.1.13.10 ity [facility] 4.2.7.2.686 [place] as MATERNAL [phone] [facility] ical & CHILD [address] [place] [address] Results Test Description Test Time Test Comments Results Result Comments Source POCT TEST 2022-11-10 18:37:00 Test Item Value Reference Range Interpretation Comme nts POCT PREG (test code = 1605) Negative On board controls acceptable with C Line (test code = 3574) Yes POCT PREG LOT # (test code = 3575) [facility]test [facility] = 3576[id number] 18:37:00 Test Item Value Reference Range Interpretation Comments POCT PREG (test code = 1605) Negative On board controls acceptable with C Yes Line (test code = 3574) POCT PREG LOT # (test code = 3575) POCT PREG TEST DATE (test code = 3576) [facility] [id number] 18:32:00 Test Item Value Reference Range Interpretation Comments POCT PREG (test code = 1605) Negative On board controls acceptable with C Yes Line (test code = 3574) POCT PREG LOT # (test code = 3575) POCT PREG TEST DATE (test code = 3576) [facility] [id number] 18:32:00 Test Item Value Reference Range Interpretation Comments POCT PREG (test code = 1605) Negative On board controls acceptable with C Yes Line (test code = 3574) POCT PREG LOT # (test code = 3575) [facility] (test code = 3576[id number] 22:06:00 Test Item Value Reference Range Interpretation Comments POCT PREG (test code = 1605) Negative On board controls acceptable with Present C Line (test code = 3574) POCT PREG LOT # (test code = HCG [id number]) POCT PREG TEST DATE (test 11/20/2023 code = 3576) Lab Interpretation (test code = Normal 28593-6) [facility]/O SPECIFIC [id number] 14:34:00 Test Item Value Reference Range Interpretation Comments POCT PH U (test code = 3254) 5 mg/dl 5-8 POCT U LEUK EST (test code = trace Negative - Negative 3) POCT U NIT (test code = 3262) - Negative - Negative POCT U PROT (test code = 3259) trace Negative - Negative POCT U GLU (test code = 3256) - Negative - Negative POCT U KETONE (test code = 3258) - Negative - Negative POCT U BLD (test code = 3257) - Negative - Negative [facility]
[2022-12-31] MEDS ORDERED: CYCLOBENZAPRINE 10 MG TAB ONE (05:57)
[2022-12-31] MEDS ORDERED: IBUPROFEN 400 MG TAB ONE (05:58)
[2022-12-31] MEDS ORDERED: CODEINE 30MG/APAP 300MG TAB ONE (05:58)
--- NOTE | 2022-12-31 07:10 | EDPHYS ---
Physician Documentation [facility] Name: Bijal Andrade Age: 27 yrs Sex: Female : 1995 Arrival Date: 12/31/2022 Time: 05:12 Bed 14 Private MD: ED Physician Deshaun Chu HPI: 12/31 05:34 This 27 yrs old Female presents to ER via Ambulatory with complaints of Fall sp4 Injury. 06:58 Very pleasant 27-year-old female presents with complaint of a left ankle left foot pain sp4 and also left wrist pain after she fell off the [employer] . 06:59 Patient states she fell about 3 hours prior to arrival. Her leg was caught into rocks sp4 and coursed pain to the left ankle left lateral ankle abrasion, and also left wrist pain after a fall. No additional injury. Last tetanus shot was 4 years ago. Patient says she has Nexplanon and unlikely to be . Historical: - Allergies: 05:32 bandaids; pf1 05:32 Tape; pf1 - PMHx: 05:32 Anemia; Depression; GERD; HYDRONEPHROSIS; Migraines; IBS; colitis; pf1 - PSHx: 05:32 colonoscopy; endoscopy; pf1 - Immunization history:: Adult Immunizations up to date, Client reports having NOT received the Covid vaccine. Last tetanus immunization: < 10 years ago Flu vaccine is not up to date. - Social history:: Smoking status: Patient reports the use of cigarette tobacco products, smokes one pack cigarettes per day. Patient/guardian denies using alcohol, street drugs. - Family history:: not pertinent. ROS: 06:59 Constitutional: Negative for fever, chills, and weight loss, Eyes: Negative for injury, sp4 pain, redness, and discharge, ENT: Negative for injury, pain, and discharge, Neck: Negative for injury, pain, and swelling, Cardiovascular: Negative for chest pain, palpitations, and edema, MS/Extremity: Positive left wrist pain and left wrist injury, positive for left ankle pain, left ankle abrasion, left foot pain, left lower extremity injury. 06:59 All other systems are negative. Exam: 06:59 Constitutional: This is a well developed, well nourished patient who is awake, alert, sp4 and in no acute distress. Head/Face: Normocephalic, atraumatic. Eyes: Pupils equal round and reactive to light, extra-ocular motions intact. Lids and lashes normal. Conjunctiva and sclera are not injected. Cornea within normal limits. Periorbital areas with no swelling, redness, or edema. ENT: Nares patent. No nasal discharge, no septal abnormalities noted. Tympanic membranes are normal and external auditory canals are clear. Oropharynx with no redness, swelling, or masses, exudates, or evidence of obstruction, uvula midline. Mucous membranes moist. Neck: Trachea midline, no thyromegaly or masses palpated, and no cervical lymphadenopathy. Supple, full range of motion without nuchal rigidity, or vertebral point tenderness. Chest/axilla: Normal chest wall appearance and motion. Nontender with no deformity. No lesions are appreciated. Cardiovascular: Regular rate and rhythm with a normal S1 and S2. No gallops, murmurs, or rubs. Normal PMI, no JVD. No pulse deficits. Respiratory: Lungs have equal breath sounds bilaterally, clear to auscultation and percussion. No rales, rhonchi or wheezes noted. No increased work of breathing, no retractions or nasal flaring. Abdomen/GI: Soft, non-tender, with normal bowel sounds. No distension or tympany. No guarding or rebound. No evidence of tenderness throughout. Back: No spinal tenderness. No costovertebral tenderness. Skin: Warm, dry with normal turgor. Normal color with no rashes, no lesions, and no evidence of cellulitis. Positive left ankle abrasion lateral malleolus deep but small abrasion MS/ Extremity: Pulses equal, no cyanosis. Neurovascular intact. Positive left ankle pain and tenderness, mild left ankle swelling, mild left wharf tender helper, no deformity, left wrist tenderness without deformity, normal intact neurovascular status of all extremities Neuro: Awake and alert, GCS 15, oriented to person, place, time, and situation. Cranial nerves II-XII grossly intact. Motor strength 5/5 in all extremities. Sensory grossly intact. Psych: Awake, alert, with orientation to person, place and time. Behavior, mood, and affect are within normal limits Vital Signs: 05:25 BP 138 / 87; Pulse 99; Resp 16; Temp 98.8; Pulse Ox 98% on R/A; Weight 88.45 kg; Height pf1 5 ft. 5 in. ; Pain 4/10; 05:25 Body Mass Index 32.45 (88.45 kg, 165.1 cm) pf1 05:25 Pain Scale: Adult pf1 Procedures: 06:59 Splinting: Splint applied to left wrist using wrist splint, Velcro wrist splint. sp4 applied by tech. Examined by me, post splint application: neurovascular intact, 2+ distal pulses palpable, brisk capillary refill noted, Patient tolerated well, I advised left wrist splint for the next 2 weeks . Splinting: Left lower extremity sprain of the left ankle, patient was given left lower extremity Ortho cam boot, this was applied by library media technician to the left lower extremity for acute left ankle sprain. After application neurovascular status of the left lower extremity is intact. Patient was provided crutches for ambulation. Advised left lower extremity boot for the next 2 weeks and crutches for the next 2 weeks. . MDM: 05:40 Patient medically screened. sp4 06:50 ED course: EXAM: XR Left Ankle Complete, 3 or More Views CLINICAL HISTORY: The patient sp4 is 27 years old and is Female; fall, injury , pain , distress TECHNIQUE: Three views of the left ankle. COMPARISON: No relevant prior studies available. FINDINGS: Bones/joints: No significant arthropathy. No acute fracture. No dislocation. Soft tissues: Unremarkable. IMPRESSION: No acute findings in the left ankle. . ED course: EXAM: XR Left Foot Complete, 3 or More Views CLINICAL HISTORY: The patient is 27 years old and is Female; fall, injury , Pain ! TECHNIQUE: Three views of the left foot. COMPARISON: No relevant prior studies available. FINDINGS: Bones/joints: No significant arthropathy. No acute fracture. No dislocation. Soft tissues: Unremarkable. No radiopaque foreign body. IMPRESSION: No acute findings in the left foot.. 06:51 ED course: EXAM: XR Left Wrist Complete, 3 or More Views CLINICAL HISTORY: The patient sp4 is 27 years old and is Female; left wrist pain TECHNIQUE: Three views of the left wrist. COMPARISON: No relevant prior studies available. FINDINGS: Bones/joints: No significant arthropathy. No acute fracture. No dislocation. Soft tissues: Unremarkable. No radiopaque foreign body. IMPRESSION: No acute findings in the left wrist. 06:59 Differential diagnosis: abrasion, contusion, fracture, multiple trauma, sprain, strain. sp4 Data reviewed: vital signs, nurses notes, radiologic studies, plain films. ED course: X-rays are negative today, left Velcro wrist splint applied, left lower extremity Cam boot applied. Patient stable for discharge home . 12/31 05:38 Order name: Wrist Left (3 View) XRAY sp4 12/31 05:39 Order name: Ankle Left 3 View XRAY sp4 12/31 05:39 Order name: Foot Left 3 View XRAY sp4 12/31 06:24 Order name: Crutches; Complete Time: 06:38 sp4 12/31 06:24 Order name: Orthopedic shoe: Left lower leg Ortho boot application; Complete Time: 06:38sp4 12/31 06:24 Order name: Wrist Splint: velcro wrist splint please ; Complete Time: 06:38 sp4 Administered Medications: 05:51 Drug: Ibuprofen PO 800 mg Route: PO; ll3 07:15 Follow up: Response: No adverse reaction; Pain is decreased kc6 05:51 Drug: Acetaminophen-Codeine PO (300 mg-30 mg) 2 tabs Route: PO; ll3 07:15 Follow up: Response: No adverse reaction; Pain is decreased; RASS: Alert and Calm (0) kc6 05:51 Drug: Cyclobenzaprine PO 10 mg Route: PO; ll3 07:15 Follow up: Response: No adverse reaction kc6 Disposition Summary: 12/31/22 07:09 Discharge Ordered Location: Home sp4 Problem: new sp4 Symptoms: have improved sp4 Condition: Stable sp4 Diagnosis - Sprain of ankle sp4 - Acute left ankle sprain, acute left ankle abrasion of the lateral malleolus, acute sp4 left wrist sprain, acute left lower extremity injury Followup: sp4 - With: Private Physician - When: 10 - 14 days - Reason: Recheck today's complaints Discharge Instructions: - Discharge Summary Sheet sp4 - Ankle Sprain, [id number] sp4 Forms: - Patient Portal [email or web address].htm sp4 Prescriptions: - Ibuprofen 600 mg Oral Tablet - take 1 tablet by ORAL route every 6 hours As needed take with food; 30 tablet; sp4 Refills: 0, Product Selection Permitted - Tramadol 50 mg Oral Tablet - take 1 tablet by ORAL route every 8 hours as needed; 20 tablet; Refills: 0, sp4 Product Selection Permitted Signatures: Dispatcher [employer] Eagle Lassiter RN RN ll3 Gisele Rangel RN RN pf1 Deshaun Chu MD MD sp4 Luiza Ceron RN kc6
--- NOTE | 2022-12-31 07:10 | ER ---
Nurse's Notes [facility] Name: Bijal Andrade Age: 27 yrs Sex: Female : 1995 Arrival Date: 12/31/2022 Time: 05:12 Bed 14 Private MD: Diagnosis: Sprain of ankle;Acute left ankle sprain, acute left ankle abrasion of the lateral malleolus, acute left wrist sprain, acute left lower extremity injury Presentation: 12/31 05:25 Chief complaint: Patient states: C/O left ankle pain of 4 and left wrist pain with pf1 abrasion to left lateral ankle region,onset approximately 2-3 hours ago. [place] standing on some rocks, stepped back then foot went between two rock while twisting left ankle then caught self with left wrist on the rocks. Coronavirus screen: Vaccine status: Patient reports being unvaccinated. Client denies travel out of the [place] in the last 14 days. At this time, the client does not indicate any symptoms associated with coronavirus-19. Ebola Screen: Patient negative for fever greater than or equal to 101.5 degrees Fahrenheit, and additional compatible Ebola Virus Disease symptoms. Initial Sepsis Screen: Does the patient meet any 2 criteria? HR > 90 bpm. No. Patient's initial sepsis screen is negative. Does the patient have a suspected source of infection? No. Patient's initial sepsis screen is negative. Risk Assessment: Do you want to hurt yourself or someone else? Patient reports no desire to harm self or others. 05:25 Method Of Arrival: Ambulatory pf1 05:25 Acuity: JUANIS 4 pf1 05:39 Onset of symptoms was December 31, 2022 at 02:30. Care prior to arrival: None. ll3 Historical: - Allergies: 05:32 bandaids; pf1 05:32 Tape; pf1 - PMHx: 05:32 Anemia; Depression; GERD; HYDRONEPHROSIS; Migraines; IBS; colitis; pf1 - PSHx: 05:32 colonoscopy; endoscopy; pf1 - Immunization history:: Adult Immunizations up to date, Client reports having NOT received the Covid vaccine. Last tetanus immunization: < 10 years ago Flu vaccine is not up to date. - Social history:: Smoking status: Patient reports the use of cigarette tobacco products, smokes one pack cigarettes per day. Patient/guardian denies using alcohol, street drugs. - Family history:: not pertinent. Screenin:36 [facility] ED Fall Risk Assessment (Adult) History of falling in the last 3 months, ll3 including since admission Yes- single mechanical fall (1 pt) Confusion or Disorientation No (0 pts) Intoxicated or Sedated No (0 pts) Impaired Gait No (0 pts) Mobility Assist Device Used No (0 pt) Altered Elimination No (0 pt) Score/Fall Risk Level 0 - 2 = Low Risk Oriented to surroundings, Maintained a safe environment, Educated pt \T\ family on fall prevention, incl call for assistance when getting out of bed. Abuse screen: Denies threats or abuse. Denies injuries from another. Nutritional screening: No deficits noted. Tuberculosis screening: No symptoms or risk factors identified. Assessment: 05:36 General: Appears uncomfortable, Behavior is calm, cooperative. Pain: Complains of pain ll3 in left wrist and left lateral ankle Pain does not radiate. Pain currently is 4 out of 10 on a pain scale. Pain began 4 hours ago. Is continuous. Derm: Abrasion to left ankle. Musculoskeletal: Circulation, motion, and sensation intact. Reports pain in left wrist and left lateral ankle since 3-4 hours ago. Pain is 4 out of 10 on a pain scale. 07:00 Reassessment: Patient appears in no apparent distress at this time. Patient is alert, kc6 oriented x 3, equal unlabored respirations, skin warm/dry/pink. Patient is alert/active/playful, equal unlabored respirations, skin warm/dry/pink. Vital Signs: 05:25 BP 138 / 87; Pulse 99; Resp 16; Temp 98.8; Pulse Ox 98% on R/A; Weight 88.45 kg; Height pf1 5 ft. 5 in. ; Pain 4/10; 05:25 Body Mass Index 32.45 (88.45 kg, 165.1 cm) pf1 05:25 Pain Scale: Adult pf1 ED Course: 05:15 Patient arrived in ED. jj6 05:32 Triage completed. pf1 05:34 Deshaun Chu MD is Attending Physician. sp4 05:36 Patient has correct armband on for positive identification. Bed in low position. Call ll3 light in reach. Side rails up X 1. 05:39 Arm band placed on Patient placed in an exam room, on a stretcher, on pulse oximetry. ll3 05:52 No provider procedures requiring assistance completed. ll3 06:03 Wound care: to abrasion, located on left lateral ankle was cleaned with soap and water, ll3 Patient tolerated well. 06:08 Wrist Left (3 View) XRAY In Process Unspecified. EDMS 06:08 Ankle Left 3 View XRAY In Process Unspecified. EDMS 06:08 Foot Left 3 View XRAY In Process Unspecified. EDMS 07:00 Report received from Eagle Pina RN. kc6 07:25 Patient did not have IV access during this emergency room visit. kc6 Administered Medications: 05:51 Drug: Ibuprofen PO 800 mg Route: PO; ll3 07:15 Follow up: Response: No adverse reaction; Pain is decreased kc6 05:51 Drug: Acetaminophen-Codeine PO (300 mg-30 mg) 2 tabs Route: PO; ll3 07:15 Follow up: Response: No adverse reaction; Pain is decreased; RASS: Alert and Calm (0) kc6 05:51 Drug: Cyclobenzaprine PO 10 mg Route: PO; ll3 07:15 Follow up: Response: No adverse reaction kc6 Medication: 05:52 VIS not applicable for this client. ll3 Outcome: 07:09 Discharge ordered by . sp4 07:24 Discharged to home ambulatory, with crutches. kc6 07:24 Condition: improved 07:24 Discharge instructions given to patient, Instructed on discharge instructions, follow up and referral plans. medication usage, crutch walking, Demonstrated understanding of instructions, follow-up care, medications, crutch walking, Prescriptions given X 2. 07:25 Patient left the ED. kc6 Signatures: Dispatcher [employer] EDMS Puja Minal [email or web address] Eagle Pina RN RN ll3 Luiza Ceron RN RN kc6 Gisele Rangel RN RN pf1 Deshaun Chu MD MD sp4
[2022-12-31 07:43] VITALS: BP 138/87; TEMP 98.8; O2SAT 98
--- NOTE | 2022-12-31 11:51 | RAD REPORT ---
EXAM DESCRIPTION: RAD - Foot Left 3 View - 12/31/2022 6:06 am CLINICAL HISTORY: The patient is 27 years old and is Female; fall, injury , Pain ! TECHNIQUE: Three views of the left foot. COMPARISON: No relevant prior studies available. FINDINGS: Bones/joints: No significant arthropathy. No acute fracture. No dislocation. Soft tissues: Unremarkable. No radiopaque foreign body. IMPRESSION: No acute findings in the left foot. Electronically signed by: Prerna Vanessa MD 12/31/2022 6:31 AM CDT Due to temporary technical issues with the PACS/Fluency reporting system, reports are being signed by the in house radiologist without review as a courtesy to ensure prompt reporting. The interpreting r adiologist is fully responsible for the content of the report.
--- NOTE | 2022-12-31 11:52 | RAD REPORT ---
EXAM DESCRIPTION: RAD - Ankle Left 3 View - 12/31/2022 6:06 am CLINICAL HISTORY: The patient is 27 years old and is Female; fall, injury , pain , distress TECHNIQUE: Three views of the left ankle. COMPARISON: No relevant prior studies available. FINDINGS: Bones/joints: No significant arthropathy. No acute fracture. No dislocation. Soft tissues: Unremarkable. IMPRESSION: No acute findings in the left ankle. Electronically signed by: Prerna Vanessa MD 12/31/2022 6:28 AM CDT Due to temporary technical issues with the PACS/Fluency reporting system, reports are being signed by the in house radiologist without review as a courtesy to ensure prompt reporting. The interpreting r adiologist is fully responsible for the content of the report.
--- NOTE | 2022-12-31 12:08 | RAD REPORT ---
EXAM DESCRIPTION: RAD - Wrist Left 3 View - 12/31/2022 6:06 am CLINICAL HISTORY: The patient is 27 years old and is Female; left wrist pain TECHNIQUE: Three views of the left wrist. COMPARISON: No relevant prior studies available. FINDINGS: Bones/joints: No significant arthropathy. No acute fracture. No dislocation. Soft tissues: Unremarkable. No radiopaque foreign body. IMPRESSION: No acute findings in the left wrist. Electronically signed by: Prerna Vanessa MD 12/31/2022 6:30 AM CDT Due to temporary technical issues with the PACS/Fluency reporting system, reports are being signed by the in house radiologist without review as a courtesy to ensure prompt reporting. The interpreting r adiologist is fully responsible for the content of the report.
== END 2022-12-31 07:25 | disposition home or self-care (01) ==
LOC: ER 05:12
DX: S93.402A Sprain of unspecified ligament of left ankle, initial encounter (principal); S63.502A Unspecified sprain of left wrist, initial encounter; F17.210 Nicotine dependence, cigarettes, uncomplicated; Z91.048 Other nonmedicinal substance allergy status

== ENCOUNTER → 2023-06-16 | Emergency (ER) | payer BC ==
[~2023-06-16] MED LIST: KETOROLAC 30 MG/ML INJ ONE
--- OUTSIDE RECORDS SUMMARY | 2023-06-16 16:24 | XMS REPORT | Continuity of Care Document ---
Author Name Unknown Address [address] [facility] [address] [place] [address] [facility] Address [address] [facility] 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 Role Phone Gaby Rouse Primary Care Physician [phone] Lianet Mckinley Attending Clinician + LIANET VELEZ Attending Clinician Unavail able Doctor Unassigned, [place] Attending Clinician U navailable SARA FITZGERALD Attending Clinician Unavailab Audra Carrizales Attending Clinician [phone] Sara Fitzgerald DO Attending Clinician [phone] CARLOS GOMEZ Attending Clinician Unavailab SAURABH Tao Attending Clinician Unavailable Saurabh Bo MD Attending Clinician [phone] Antoinette Nelson Attending Clinician [phone] ANTOINETTE PERKINS Attending Clinician UnavailCarlos Alfaro Attending Clinician + [phone] Josafat Wong DO Attending Clinician [phone], [facility] Attending Clinician Unavailable Carleen Pritchard MD Attending Clinician [phone] CARLEEN PRITCHARD Attending Clinician Unavailable MANAN SPEARS Attending Clinician Unavailable Gabriele ROSALES, Kellie Attending Clinician Unavailable Care, [facility] Attending Clinician Unamayank rosenbaum Nurse, [facility] Attending Clinician Unavailabl e Unknown, Attending Attending Clinician Unavailab le UNKNOWN, ATTENDING Attending Clinician Unavailab le Lab, [facility] Attending Clinician Unavailable Payers Payer Name Policy Type Policy Number Effective Date Expirati on Date Source Problems Condition Name Condition Details Condition Category Status Onset Date Resolution Date Last Treatment Date Treating Clinician Comments Source Other general counseling and advice for contracept ynes management Other general counseling and advice for contracept ynes management Disease Active 09-01 00:00: 00 [facility] History of herpes genitalis History of herpes genitalis Disease Active 09-01 00:00: 00 [facility] 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 Repeat pap in 1 year 05/2023 [facility] Obesity (BMI 30-39.9) Obesity (BMI 30-39.9) Disease Active - 00:00: 00 [facility] Nexplanon insertion Nexplanon insertion Disease Active 11-09 00:00: 00 [facility] Situationa l depression Situationa l depression Disease Active 11-09 00:00: 00 [facility] Nexplanon in place Nexplanon in place Disease Active 11-09 00:00: 00 [facility] History of IBS History of IBS Disease Active 03-17 00:00: 00 [facility] Polyp of colon, unspecifie d part of colon, unspecifie d type Polyp of colon, unspecifie d part of colon, unspecifie d type Disease Active 1-17 00:00: 00 [facility] Tobacco use Tobacco use Disease Active 5- 00:00: 00 [facility] Gastroesop hageal reflux disease without esophagiti s Gastroesop hageal reflux disease without esophagiti s Disease Active 10-31 00:00: 00 [facility] Allergies, Adverse Reactions, Alerts Allergy Name Allergy Type Status Severity Reaction(s) Onset Date Inactive Date Treating Clinician Comments Source NO KNOWN ALLERGIE S Drug Class Active [facility] Social History Social Habit Start Date Stop Date Quantity Comments Source History of tobacco use 2010-03-17 00:00:00 Cigarette Smoker [facility] History SDOH Alcohol Frequency [facility] History SDOH [facility] St[facility]inks [facility] History SDOH Alcohol Binge [facility] Exposure to SARS-CoV-2 (event) 2022-10-31 00:00:00 2022-11-10 13:32:00 Not sure [facility] Alcohol intake 2022-09-01 00:00:00 2022-09-01 00:00:00 0 /d [facility] History of Social function 2022-05-21 00:00:00 2022-05-21 00:00:00 [facility] Cigarettes smoked current (pack per day) - Reported 2022-05-21 00:00:00 2022-05-21 00:00:00 [facility] Tobacco Comment 2022-05-21 00:00:00 2022-05-21 00:00:00 she smokes 5 cigarettes to 1.5 ppd, she says depends how she's feeling [facility] Tobacco use and exposure 2022-05-21 00:00:00 2022-05-21 00:00:00 Smokeless tobacco non-user [facility] Alcohol Comment 2017-03-20 00:00:00 2017-03-20 00:00:00 Occasionally [facility] Sex Assigned At 1995 00:00:00 1995 00:00:00 [facility] Smoking Status Start Date Stop Date Source Smokes tobacco daily 2022-05-21 00:00:00 [facility] Medications Ordered Medication Name Filled Medication Name Start Date Stop Date Current Medication? Ordering Clinician Indication Dosage Frequency Signature (SIG) Comments Components Source valACYclovi r (VALTREX) 500 mg tablet 12-30 00:00: 00 Yes [id number] 500mg Take 1 tablet by mouth in the morning. [facility] valACYclovi r (VALTREX) 500 mg tablet 12-30 00:00: 00 Yes [id number] 500mg Take 1 tablet by mouth in the morning. [facility] acyclovir 400 mg tablet 12-25 00:00: 00 Yes [id number] 400mg Take 1 tablet by mouth in the morning and 1 tablet in the evening. [facility] acyclovir 400 mg tablet 12-25 00:00: 00 Yes [id number] 400mg Take 1 tablet by mouth in the morning and 1 tablet in the evening. [facility] acyclovir 400 mg tablet 12-25 00:00: 00 Yes [id number] 400mg Take 1 tablet by mouth in the morning and 1 tablet in the evening. [facility] acyclovir 400 mg tablet 12-25 00:00: 00 Yes [id number] 400mg Take 1 tablet by mouth in the morning and 1 tablet in the evening. [facility] acyclovir 400 mg tablet 12-25 00:00: 00 Yes [id number] 400mg Take 1 tablet by mouth in the morning and 1 tablet in the evening. [facility] etonogestre L (NEXPLANON) implant 68 mg 11-11 22:15: 00 11-10 21:24 :00 No [id number] 68mg [facility] etonogestre L (NEXPLANON) implant 68 mg 11-11 22:15: 00 11-10 21:24 :00 No [id number] 68mg 68 mg, Subdermal, ONCE NOW, 1 dose, On Thu11/11/22 at 1715, Routine
Use approved by: [employer] SALES [employer]GER [facility] etonogestre L (NEXPLANON) implant 68 mg 11-11 22:15: 00 11-10 21:24 :00 No [id number] 68mg [facility] etonogestre L (NEXPLANON) implant 68 mg 11-11 22:15: 00 11-10 21:24 :00 No [id number] 68mg 68 mg, Subdermal, ONCE NOW, 1 dose, On Thu11/11/22 at 1715, Routine
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 [facility] valACYclovi r (VALTREX) 500 mg tablet 09-01 00:00: 00 10-02 04:59 :00 No [id number] 500mg Take 1 tablet by mouth in the morning for 30 days. [facility] valACYclovi r (VALTREX) 500 mg tablet 09-01 00:00: 00 10-02 04:59 :00 No [id number] 500mg Take 1 tablet by mouth in the morning for 30 days. [facility] valACYclovi r (VALTREX) 500 mg tablet 09-01 00:00: 00 10-02 04:59 :00 No [id number] 500mg Take 1 tablet by mouth in the morning for 30 days. [facility] acyclovir 400 mg tablet 2021-06 00:00: 00 Yes [id number] 400mg Take 1 tablet by mouth in the morning and 1 tablet in the evening. [facility] acyclovir 400 mg tablet 2021-06 00:00: 00 Yes [id number] 400mg Take 1 tablet by mouth in the morning and 1 tablet in the evening. [facility] acyclovir 400 mg tablet 2021-06 00:00: 00 Yes [id number] 400mg Take 1 tablet by mouth in the morning and 1 tablet in the evening. [facility] acyclovir 400 mg tablet 2021-06 00:00: 00 Yes [id number] 400mg Take 1 tablet by mouth in the morning and 1 tablet in the evening. [facility] acyclovir 400 mg tablet 2021-06 00:00: 00 Yes [id number] 400mg Take 1 tablet by mouth in the morning and 1 tablet in the evening. [facility] acyclovir 400 mg tablet 2021-06 00:00: 00 Yes [id number] 400mg Take 1 tablet by mouth in the morning and 1 tablet in the evening. [facility] acyclovir 400 mg tablet 2021-06 00:00: 00 Yes [id number] 400mg Take 1 tablet by mouth in the morning and 1 tablet in the evening. [facility] acyclovir 400 mg tablet 2021-06 00:00: 00 Yes [id number] 400mg Take 1 tablet by mouth in the morning and 1 tablet in the evening. [facility] acyclovir 400 mg tablet 2021-06 00:00: 00 Yes [id number] 400mg Take 1 tablet by mouth in the morning and 1 tablet in the evening. [facility] acyclovir 400 mg tablet 2021-06 00:00: 00 Yes [id number] 400mg Take 1 tablet by mouth in the morning and 1 tablet in the evening. [facility] acyclovir 400 mg tablet 2021-06 00:00: 00 Yes [id number] 400mg Take 1 tablet by mouth in the morning and 1 tablet in the evening. [facility] acyclovir 400 mg tablet 2021-06 00:00: 00 Yes [id number] 400mg Take 1 tablet by mouth in the morning and 1 tablet in the evening. [facility] acyclovir 400 mg tablet 2021-06 00:00: 00 Yes [id number] 400mg Take 1 tablet by mouth in the morning and 1 tablet in the evening. [facility] acyclovir 400 mg tablet 2021-06 00:00: 00 Yes [id number] 400mg Take 1 tablet by mouth in the morning and 1 tablet in the evening. [facility] acyclovir 400 mg tablet 2021-06 00:00: 00 Yes [id number] 400mg Take 1 tablet by mouth in the morning and 1 tablet in the evening. [facility] acyclovir 400 mg tablet 2021-06 00:00: 00 Yes [id number] 400mg Take 1 tablet by mouth in the morning and 1 tablet in the evening. [facility] acyclovir 400 mg tablet 2021-06 00:00: 00 Yes [id number] 400mg Take 1 tablet by mouth in the morning and 1 tablet in the evening. [facility] acyclovir 400 mg tablet 2021-06 00:00: 00 Yes [id number] 400mg Take 1 tablet by mouth in the morning and 1 tablet in the evening. [facility] acyclovir 400 mg tablet 2021-06 00:00: 00 Yes [id number] 400mg Take 1 tablet by mouth in the morning and 1 tablet in the evening. [facility] acyclovir 400 mg tablet 2021-06 00:00: 00 Yes [id number] 400mg Take 1 tablet by mouth in the morning and 1 tablet in the evening. [facility] acyclovir 400 mg tablet 2021-06 00:00: 00 Yes [id number] 400mg Take 1 tablet by mouth in the morning and 1 tablet in the evening. [facility] acyclovir 400 mg tablet 2021-06 00:00: 00 06-03 05:59 :00 No [id number] 400mg Take 1 tablet by mouth in the morning and 1 tablet at noon and 1 tablet in the evening. Do all this for 10 days. [facility] acyclovir 400 mg tablet 2021-06 2 00:00: 00 06-03 05:59 :00 No [id number] 400mg Take 1 tablet by mouth in the morning and 1 tablet at noon and 1 tablet in the evening. Do all this for 10 days. [facility] acyclovir 400 mg tablet 2021-06 2 00:00: 00 06-03 05:59 :00 No [id number] 400mg Take 1 tablet by mouth in the morning and 1 tablet at noon and 1 tablet in the evening. Do all this for 10 days. [facility] acyclovir 400 mg tablet 2021-06 00:00: 00 06-03 05:59 :00 No [id number] 400mg Take 1 tablet by mouth in the morning and 1 tablet at noon and 1 tablet in the evening. Do all this for 10 days. [facility] acyclovir 400 mg tablet 2021-06 00:00: 00 06-03 05:59 :00 No [id number] 400mg Take 1 tablet by mouth in the morning and 1 tablet at noon and 1 tablet in the evening. Do all this for 10 days. [facility] lidocaine 2 % mucosal jelly 2021-06 00:00: 00 05-22 05:59 :00 No [id number] 5mL Apply 2.5 Inches to area(s) once now for 1 dose. [facility] lidocaine 2 % mucosal jelly 2021-06 00:00: 00 05-22 05:59 :00 No [id number] 5mL Apply 2.5 Inches to area(s) once now for 1 dose. [facility] metroNIDAZO LE (FLAGYL) 500 mg tablet 2020-06 00:00: 00 05-23 05:59 :00 No [id number] 500mg Take 1 tablet by mouth 2 (two) times daily for 7 days. [facility] esomeprazol e magnesium (NEXIUM ORAL) 2020-06 08:38: 34 Yes Take by mouth. [facility] esomeprazol e magnesium (NEXIUM ORAL) 2020-06 08:38: 34 Yes Take by mouth. [facility] esomeprazol e magnesium (NEXIUM ORAL) 2020-06 08:38: 34 Yes Take by mouth. [facility] esomeprazol e magnesium (NEXIUM ORAL) 2020-06 08:38: 34 Yes Take by mouth. [facility] esomeprazol e magnesium (NEXIUM ORAL) 2020-06 08:38: 34 Yes Take by mouth. [facility] esomeprazol e magnesium (NEXIUM ORAL) 2020-06 08:38: 34 Yes Take by mouth. [facility] esomeprazol e magnesium (NEXIUM ORAL) 2020-06 08:38: 34 Yes Take by mouth. [facility] esomeprazol e magnesium (NEXIUM ORAL) 2020-06 08:38: 34 Yes Take by mouth. [facility] esomeprazol e magnesium (NEXIUM ORAL) 2020-06 08:38: 34 Yes Take by mouth. [facility] esomeprazol e magnesium (NEXIUM ORAL) 2020-06 08:38: 34 Yes Take by mouth. [facility] esomeprazol e magnesium (NEXIUM ORAL) 2020-06 08:38: 34 Yes Take by mouth. [facility] esomeprazol e magnesium (NEXIUM ORAL) 2020-06 08:38: 34 Yes Take by mouth. [facility] esomeprazol e magnesium (NEXIUM ORAL) 2020-06 08:38: 34 Yes Take by mouth. [facility] esomeprazol e magnesium (NEXIUM ORAL) 2020-06 08:38: 34 Yes Take by mouth. [facility] esomeprazol e magnesium (NEXIUM ORAL) 2020-06 08:38: 34 Yes Take by mouth. [facility] esomeprazol e magnesium (NEXIUM ORAL) 2020-06 08:38: 34 Yes Take by mouth. [facility] esomeprazol e magnesium (NEXIUM ORAL) 2020-06 08:38: 34 Yes Take by mouth. [facility] esomeprazol e magnesium (NEXIUM ORAL) 2020-06 08:38: 34 Yes Take by mouth. [facility] esomeprazol e magnesium (NEXIUM ORAL) 2020-06 08:38: 34 Yes Take by mouth. [facility] esomeprazol e magnesium (NEXIUM ORAL) 2020-06 08:38: 34 Yes Take by mouth. [facility] esomeprazol e magnesium (NEXIUM ORAL) 2020-06 08:38: 34 Yes Take by mouth. [facility] esomeprazol e magnesium (NEXIUM ORAL) 2020-06 08:38: 34 Yes Take by mouth. [facility] esomeprazol e magnesium (NEXIUM ORAL) 2020-06 08:38: 34 Yes Take by mouth. [facility] esomeprazol e magnesium (NEXIUM ORAL) 2020-06 08:38: 34 Yes Take by mouth. [facility] esomeprazol e magnesium (NEXIUM ORAL) 2020-06 08:38: 34 Yes Take by mouth. [facility] esomeprazol e magnesium (NEXIUM ORAL) 2020-06 08:38: 34 Yes Take by mouth. [facility] esomeprazol e magnesium (NEXIUM ORAL) 2020-06 08:38: 34 Yes Take by mouth. [facility] esomeprazol e magnesium (NEXIUM ORAL) 2020-06 08:38: 34 Yes Take by mouth. [facility] esomeprazol e magnesium (NEXIUM ORAL) 2020-06 08:38: 34 Yes Take by mouth. [facility] esomeprazol e magnesium (NEXIUM ORAL) 2020-06 08:38: 34 Yes Take by mouth. [facility] esomeprazol e magnesium (NEXIUM ORAL) 2020-06 08:38: 34 Yes Take by mouth. [facility] esomeprazol e magnesium (NEXIUM ORAL) 2020-06 08:38: 34 Yes Take by mouth. [facility] esomeprazol e magnesium (NEXIUM ORAL) 2020-06 08:38: 34 Yes Take by mouth. [facility] esomeprazol e magnesium (NEXIUM ORAL) 2020-06 08:38: 34 Yes Take by mouth. [facility] acetaminoph en-codeine 300-30 mg tablet 03-11 00:00: 00 05-09 00:00 :00 No [facility] phentermine 37.5 mg tablet 9- 00:00: 00 05-09 00:00 :00 No [facility] amoxicillin 875 mg tablet - 00:00: 00 05-09 00:00 :00 No [id number] 875mg Take 1 tablet by mouth 2 (two) times daily. [facility] albuterol 90 mcg/actuati on inhaler 2019-06 2-06 00:00: 00 05-09 00:00 :00 No INHALE 1 2 PUFFS BY MOUTH EVERY 4 6 HOURS [facility] esomeprazol e (NEXIUM) 40 mg capsule - 00:00: 00 05-09 00:00 :00 No [id number] 40mg Take 1 capsule by mouth daily with breakfast. [facility] ibuprofen 600 mg tablet -03 00:00: 00 05-09 00:00 :00 No [id number] 600mg Take 1 tablet by mouth every 6 (six) hours as needed for Pain (scale 1-3) or Pain (scale 4-6) (Pain). Take with food or milk. [facility] Immunizations Ordered Immunization Name Filled Immunization Name Date Status Comments Source Influenza Virus Vaccine Quad IM, Preserv and ABX Free 6 MO-64 YRS 2022-05-21 00:00:00 Completed [facility] Influenza Virus Vaccine Quad IM, Preserv and ABX Free 6 MO-64 YRS 2022-05-21 00:00:00 Completed [facility] Influenza Virus Vaccine Quad IM, Preserv and ABX Free 6 MO-64 YRS 2022-05-21 00:00:00 Completed [facility] Influenza Virus Vaccine Quad IM, Preserv and ABX Free 6 MO-64 YRS 2022-05-21 00:00:00 Completed [facility] Influenza Virus Vaccine Quad IM, Preserv and ABX Free 6 MO-64 YRS 2022-05-21 00:00:00 Completed [facility] Influenza Virus Vaccine Quad IM, Preserv and ABX Free 6 MO-64 YRS 2022-05-21 00:00:00 Completed [facility] Influenza Virus Vaccine Quad IM, Preserv and ABX Free 6 MO-64 YRS 2022-05-21 00:00:00 Completed [facility] Influenza Virus Vaccine Quad IM, Preserv and ABX Free 6 MO-64 YRS 2022-05-21 00:00:00 Completed [facility] Influenza Virus Vaccine Quad IM, Preserv and ABX Free 6 MO-64 YRS 2022-05-21 00:00:00 Completed [facility] Influenza Virus Vaccine Quad IM, Preserv and ABX Free 6 MO-64 YRS 2022-05-21 00:00:00 Completed [facility] Influenza Virus Vaccine Quad IM, Preserv and ABX Free 6 MO-64 YRS 2022-05-21 00:00:00 Completed [facility] Influenza Virus Vaccine Quad IM, Preserv and ABX Free 6 MO-64 YRS 2022-05-21 00:00:00 Completed [facility] Influenza Virus Vaccine Quad IM, Preserv and ABX Free 6 MO-64 YRS 2022-05-21 00:00:00 Completed [facility] Influenza Virus Vaccine Quad IM, Preserv and ABX Free 6 MO-64 YRS 2022-05-21 00:00:00 Completed [facility] Influenza Virus Vaccine Quad IM, Preserv and ABX Free 6 MO-64 YRS 2022-05-21 00:00:00 Completed [facility] Influenza Virus Vaccine Quad IM, Preserv and ABX Free 6 MO-64 YRS 2022-05-21 00:00:00 Completed [facility] Influenza Virus Vaccine Quad IM, Preserv and ABX Free 6 MO-64 YRS 2022-05-21 00:00:00 Completed [facility] Influenza Virus Vaccine Quad IM, Preserv and ABX Free 6 MO-64 YRS 2022-05-21 00:00:00 Completed [facility] Influenza Virus Vaccine Quad IM, Preserv and ABX Free 6 MO-64 YRS 2022-05-21 00:00:00 Completed [facility] Influenza Virus Vaccine Quad IM, Preserv and ABX Free 6 MO-64 YRS 2022-05-21 00:00:00 Completed [facility] Influenza Virus Vaccine Quad IM, Preserv and ABX Free 6 MO-64 YRS 2022-05-21 00:00:00 Completed [facility] Influenza Virus Vaccine Quad IM, Preserv and ABX Free 6 MO-64 YRS 2022-05-21 00:00:00 Completed [facility] Influenza Virus Vaccine Quad IM, Preserv and ABX Free 6 MO-64 YRS 2022-05-21 00:00:00 Completed [facility] Influenza Virus Vaccine Quad IM, Preserv and ABX Free 6 MO-64 YRS 2022-05-21 00:00:00 Completed [facility] Influenza Virus Vaccine Quad IM, Preserv and ABX Free 6 MO-64 YRS 2022-05-21 00:00:00 Completed [facility] Influenza Virus Vaccine Quad IM, Preserv and ABX Free 6 MO-64 YRS 2022-05-21 00:00:00 Completed [facility] Influenza Virus Vaccine Quad IM, Preserv and ABX Free 6 MO-64 YRS 2022-05-21 00:00:00 Completed [facility] HPV9 2021-05-09 00:00:00 Completed [facility] HPV9 2021-05-09 00:00:00 Completed [facility] HPV9 2021-05-09 00:00:00 Completed [facility] HPV9 2021-05-09 00:00:00 Completed [facility] HPV9 2021-05-09 00:00:00 Completed [facility] HPV9 2021-05-09 00:00:00 Completed [facility] HPV9 2021-05-09 00:00:00 Completed [facility] HPV9 2021-05-09 00:00:00 Completed [facility] HPV9 2021-05-09 00:00:00 Completed [facility] HPV9 2021-05-09 00:00:00 Completed [facility] HPV9 2021-05-09 00:00:00 Completed [facility] HPV9 2021-05-09 00:00:00 Completed [facility] HPV9 2021-05-09 00:00:00 Completed [facility] HPV9 2021-05-09 00:00:00 Completed [facility] HPV9 2021-05-09 00:00:00 Completed [facility] HPV9 2021-05-09 00:00:00 Completed [facility] HPV9 2021-05-09 00:00:00 Completed [facility] HPV9 2021-05-09 00:00:00 Completed [facility] HPV9 2021-05-09 00:00:00 Completed [facility] HPV9 2021-05-09 00:00:00 Completed [facility] HPV9 2021-05-09 00:00:00 Completed [facility] HPV9 2021-05-09 00:00:00 Completed [facility] HPV9 2021-05-09 00:00:00 Completed [facility] HPV9 2021-05-09 00:00:00 Completed [facility] HPV9 2021-05-09 00:00:00 Completed [facility] HPV9 2021-05-09 00:00:00 Completed [facility] HPV9 2021-05-09 00:00:00 Completed [facility] HPV9 2021-05-09 00:00:00 Completed [facility] HPV9 2021-05-09 00:00:00 Completed [facility] HPV9 2021-05-09 00:00:00 Completed [facility] HPV9 2021-05-09 00:00:00 Completed [facility] HPV9 2021-05-09 00:00:00 Completed [facility] HPV9 2021-05-09 00:00:00 Completed [facility] HPV9 2018-11-11 00:00:00 Completed [facility] HPV9 2018-11-11 00:00:00 Completed [facility] HPV9 2018-11-11 00:00:00 Completed [facility] HPV9 2018-11-11 00:00:00 Completed [facility] HPV9 2018-11-11 00:00:00 Completed [facility] HPV9 2018-11-11 00:00:00 Completed [facility] HPV9 2018-11-11 00:00:00 Completed [facility] HPV9 2018-11-11 00:00:00 Completed [facility] HPV9 2018-11-11 00:00:00 Completed [facility] HPV9 2018-11-11 00:00:00 Completed [facility] HPV9 2018-11-11 00:00:00 Completed [facility] HPV9 2018-11-11 00:00:00 Completed [facility] HPV9 2018-11-11 00:00:00 Completed [facility] HPV9 2018-11-11 00:00:00 Completed [facility] HPV9 2018-11-11 00:00:00 Completed [facility] HPV9 2018-11-11 00:00:00 Completed [facility] HPV9 2018-11-11 00:00:00 Completed [facility] HPV9 2018-11-11 00:00:00 Completed [facility] HPV9 2018-11-11 00:00:00 Completed [facility] HPV9 2018-11-11 00:00:00 Completed [facility] HPV9 2018-11-11 00:00:00 Completed [facility] HPV9 2018-11-11 00:00:00 Completed [facility] HPV9 2018-11-11 00:00:00 Completed [facility] HPV9 2018-11-11 00:00:00 Completed [facility] HPV9 2018-11-11 00:00:00 Completed [facility] HPV9 2018-11-11 00:00:00 Completed [facility] HPV9 2018-11-11 00:00:00 Completed [facility] HPV9 2018-11-11 00:00:00 Completed [facility] HPV9 2018-11-11 00:00:00 Completed [facility] HPV9 2018-11-11 00:00:00 Completed [facility] HPV9 2018-11-11 00:00:00 Completed [facility] HPV9 2018-11-11 00:00:00 Completed [facility] HPV9 2018-11-11 00:00:00 Completed [facility] TDAP 2018-08-05 00:00:00 Completed [facility] TDAP 2018-08-05 00:00:00 Completed [facility] TDAP 2018-08-05 00:00:00 Completed [facility] TDAP 2018-08-05 00:00:00 Completed [facility] TDAP 2018-08-05 00:00:00 Completed [facility] TDAP 2018-08-05 00:00:00 Completed [facility] TDAP 2018-08-05 00:00:00 Completed [facility] TDAP 2018-08-05 00:00:00 Completed [facility] TDAP 2018-08-05 00:00:00 Completed [facility] TDAP 2018-08-05 00:00:00 Completed [facility] TDAP 2018-08-05 00:00:00 Completed [facility] TDAP 2018-08-05 00:00:00 Completed [facility] TDAP 2018-08-05 00:00:00 Completed [facility] TDAP 2018-08-05 00:00:00 Completed [facility] TDAP 2018-08-05 00:00:00 Completed [facility] TDAP 2018-08-05 00:00:00 Completed [facility] TDAP 2018-08-05 00:00:00 Completed [facility] TDAP 2018-08-05 00:00:00 Completed [facility] TDAP 2018-08-05 00:00:00 Completed [facility] TDAP 2018-08-05 00:00:00 Completed [facility] TDAP 2018-08-05 00:00:00 Completed [facility] TDAP 2018-08-05 00:00:00 Completed [facility] TDAP 2018-08-05 00:00:00 Completed [facility] TDAP 2018-08-05 00:00:00 Completed [facility] TDAP 2018-08-05 00:00:00 Completed [facility] TDAP 2018-08-05 00:00:00 Completed [facility] TDAP 2018-08-05 00:00:00 Completed [facility] TDAP 2018-08-05 00:00:00 Completed [facility] TDAP 2018-08-05 00:00:00 Completed [facility] TDAP 2018-08-05 00:00:00 Completed [facility] TDAP 2018-08-05 00:00:00 Completed [facility] TDAP 2018-08-05 00:00:00 Completed [facility] TDAP 2018-08-05 00:00:00 Completed [facility] Influenza Virus Vaccine 2018-03-08 00:00:00 Completed [facility] Influenza Virus Vaccine 2018-03-08 00:00:00 Completed [facility] Influenza Virus Vaccine 2018-03-08 00:00:00 Completed [facility] Influenza Virus Vaccine 2018-03-08 00:00:00 Completed [facility] Influenza Virus Vaccine 2018-03-08 00:00:00 Completed [facility] Influenza Virus Vaccine 2018-03-08 00:00:00 Completed [facility] Influenza Virus Vaccine 2018-03-08 00:00:00 Completed [facility] Influenza Virus Vaccine 2018-03-08 00:00:00 Completed [facility] Influenza Virus Vaccine 2018-03-08 00:00:00 Completed [facility] Influenza Virus Vaccine 2018-03-08 00:00:00 Completed [facility] Influenza Virus Vaccine 2018-03-08 00:00:00 Completed [facility] Influenza Virus Vaccine 2018-03-08 00:00:00 Completed [facility] Influenza Virus Vaccine 2018-03-08 00:00:00 Completed [facility] Influenza Virus Vaccine 2018-03-08 00:00:00 Completed [facility] Influenza Virus Vaccine 2018-03-08 00:00:00 Completed [facility] Influenza Virus Vaccine 2018-03-08 00:00:00 Completed [facility] Influenza Virus Vaccine 2018-03-08 00:00:00 Completed [facility] Influenza Virus Vaccine 2018-03-08 00:00:00 Completed [facility] Influenza Virus Vaccine 2018-03-08 00:00:00 Completed [facility] Influenza Virus Vaccine 2018-03-08 00:00:00 Completed [facility] Influenza Virus Vaccine 2018-03-08 00:00:00 Completed [facility] Influenza Virus Vaccine 2018-03-08 00:00:00 Completed [facility] Influenza Virus Vaccine 2018-03-08 00:00:00 Completed [facility] Influenza Virus Vaccine 2018-03-08 00:00:00 Completed [facility] Influenza Virus Vaccine 2018-03-08 00:00:00 Completed [facility] Influenza Virus Vaccine 2018-03-08 00:00:00 Completed [facility] Influenza Virus Vaccine 2018-03-08 00:00:00 Completed [facility] Influenza Virus Vaccine 2018-03-08 00:00:00 Completed [facility] Influenza Virus Vaccine 2018-03-08 00:00:00 Completed [facility] Influenza Virus Vaccine 2018-03-08 00:00:00 Completed [facility] Influenza Virus Vaccine 2018-03-08 00:00:00 Completed [facility] Influenza Virus Vaccine 2018-03-08 00:00:00 Completed [facility] Influenza Virus Vaccine 2018-03-08 00:00:00 Completed [facility] HPV9 2017-07-08 00:00:00 Completed [facility] HPV9 2017-07-08 00:00:00 Completed [facility] HPV9 2017-07-08 00:00:00 Completed [facility] HPV9 2017-07-08 00:00:00 Completed [facility] HPV9 2017-07-08 00:00:00 Completed [facility] HPV9 2017-07-08 00:00:00 Completed [facility] HPV9 2017-07-08 00:00:00 Completed [facility] HPV9 2017-07-08 00:00:00 Completed [facility] HPV9 2017-07-08 00:00:00 Completed [facility] HPV9 2017-07-08 00:00:00 Completed [facility] HPV9 2017-07-08 00:00:00 Completed [facility] HPV9 2017-07-08 00:00:00 Completed [facility] HPV9 2017-07-08 00:00:00 Completed [facility] HPV9 2017-07-08 00:00:00 Completed [facility] HPV9 2017-07-08 00:00:00 Completed [facility] HPV9 2017-07-08 00:00:00 Completed [facility] HPV9 2017-07-08 00:00:00 Completed [facility] HPV9 2017-07-08 00:00:00 Completed [facility] HPV9 2017-07-08 00:00:00 Completed [facility] HPV9 2017-07-08 00:00:00 Completed [facility] HPV9 2017-07-08 00:00:00 Completed [facility] HPV9 2017-07-08 00:00:00 Completed [facility] HPV9 2017-07-08 00:00:00 Completed [facility] HPV9 2017-07-08 00:00:00 Completed [facility] HPV9 2017-07-08 00:00:00 Completed [facility] HPV9 2017-07-08 00:00:00 Completed [facility] HPV9 2017-07-08 00:00:00 Completed [facility] HPV9 2017-07-08 00:00:00 Completed [facility] HPV9 2017-07-08 00:00:00 Completed [facility] HPV9 2017-07-08 00:00:00 Completed [facility] HPV9 2017-07-08 00:00:00 Completed [facility] HPV9 2017-07-08 00:00:00 Completed [facility] HPV9 2017-07-08 00:00:00 Completed [facility] HPV9 Unknown Completed [facility] Influenza Virus Vaccine Unknown Completed [facility] TDAP Unknown Completed [facility] HPV9 Unknown Completed [facility] HPV9 Unknown Completed [facility] Influenza Virus Vaccine Quad IM, Preserv and ABX Free 6 MO-64 YRS (FLUCELVAX) Unknown Completed [facility] Vital Signs Vital Name Observation Time Observation Value Comments S ource Systolic blood pressure 2022-11-10 18:33:00 132 mm[Hg] [facility] Diastolic blood pressure 2022-11-10 18:33:00 76 mm[Hg] [facility] Heart rate 2022-11-10 18:33:00 86 /min [facility] Body temperature 2022-11-10 18:33:00 35.72 Nila [facility] Respiratory rate 2022-11-10 18:33:00 18 /min [facility] Body height 2022-11-10 18:33:00 165.1 cm [facility] Body weight 2022-11-10 18:33:00 90.946 kg [facility] BMI 2022-11-10 18:33:00 33.36 kg/m2 [facility] Heart rate 2022-09-01 18:31:00 84 /min [facility] Body temperature 2022-09-01 18:31:00 37 Nila [facility] Respiratory rate 2022-09-01 18:31:00 18 /min [facility] Body height 2022-09-01 18:31:00 165.1 cm [facility] Body weight 2022-09-01 18:31:00 93.078 kg [facility] BMI 2022-09-01 18:31:00 34.15 kg/m2 [facility] Systolic blood pressure 2022-09-01 18:31:00 132 mm[Hg] [facility] Diastolic blood pressure 2022-09-01 18:31:00 80 mm[Hg] [facility] Systolic blood pressure 2022-08-30 23:33:00 133 mm[Hg] [facility] Diastolic blood pressure 2022-08-30 23:33:00 84 mm[Hg] [facility] Heart rate 2022-08-30 23:33:00 81 /min [facility] Respiratory rate 2022-08-30 23:33:00 16 /min [facility] Oxygen saturation in Arterial blood by Pulse oximetry 2022-08-30 23:33:00 98 /min [facility] Body temperature 2022-08-30 21:17:00 37.39 Nila [facility] Body height 2022-08-30 21:17:00 165.1 cm [facility] Body weight 2022-08-30 21:17:00 90.719 kg [facility] BMI 2022-08-30 21:17:00 33.28 kg/m2 [facility] Systolic blood pressure 2022-05-21 17:15:00 140 mm[Hg] [facility] Diastolic blood pressure 2022-05-21 17:15:00 86 mm[Hg] [facility] Heart rate 2022-05-21 17:15:00 101 /min [facility] Body temperature 2022-05-21 17:14:00 37.06 Nila [facility] Respiratory rate 2022-05-21 17:14:00 18 /min [facility] Body height 2022-05-21 17:14:00 165.1 cm [facility] Body weight 2022-05-21 17:14:00 96.843 kg [facility] BMI 2022-05-21 17:14:00 35.53 kg/m2 [facility] Systolic blood pressure 2021-05-09 14:35:00 119 mm[Hg] [facility] Diastolic blood pressure 2021-05-09 14:35:00 72 mm[Hg] [facility] Heart rate 2021-05-09 14:35:00 101 /min [facility] Body temperature 2021-05-09 14:29:00 36.83 Nila [facility] Respiratory rate 2021-05-09 14:29:00 16 /min [facility] Body height 2021-05-09 14:29:00 165.1 cm [facility] Body weight 2021-05-09 14:29:00 82.146 kg [facility] BMI 2021-05-09 14:29:00 30.14 kg/m2 [facility] Procedures Procedure Date / Time Performed Performing Clinician Source POCT TEST 2022-11-10 18:37:00 Berny Velez [facility] DISCLOSURE AND CONSENT, MEDICAL AND SURGICAL PROCEDURES 2022-11-10 05:01:00 [place] [facility] POCT TEST 2022-09-01 18:32:00 Berny Velez [facility] URINALYSIS 2022-08-30 22:06[facility] 2022-08-30 22:06:00 Jennifer Fitzgerald [facility] CONSENT/REFUSAL FOR DIAGNOSIS AND TREATMENT 2022-08-30 21:05:00 Doctor [place]ass[place] [facility] PATIENT CORRESPONDENCE (LETTERS, USPS DOCUMENTATION) 2022-06-06 06:01:00 Doctor [place]ass[place] [facility] FLU VACC (), 6 MO-64 YRS, .5ML, IM, QUAD (FLUCELVAX) 2022-05-21 17:43:44 Lianet Velez [facility] ASSIGNMENT OF BENEFITS 2022-05-21 16:48:25 Docto r Unassigned[place] [facility] GARDASIL 9 (HPV 9V) VACCINE 2021-05-09 14:42:06 Antoinette Perkins [facility] POCT URINALYSIS W/O SPECIFIC GRAVITY 2021-05-09 00:00:00 Antoinette Perkins [facility] Encounters Start Date/Time End Date/Time Encounter Type Admission Type Attending [facility] Care Department Encounter ID Source 2023-05-27 00:00:00 2023-05-27 00:00:00 Refill Lianet Velez [facility] [employer] OUTSIDE SALES MANAGER [facility] CHILD [facility] 1.840.114 350.1.13.10 4.2.7.2.686 [id number] [facility] 2022-12-30 00:00:00 2022-12-30 00:00:00 Telephone Lianet Velez [facility] [employer] OUTSIDE SALES MANAGER [facility] & CHILD [facility] 1.2.840.114 350.1.13.10 4.2.7.2.686 [id number] [facility] 2022-12-24 00:00:00 2022-12-24 00:00:00 Telephone Lianet Velez [facility] [employer] OUTSIDE SALES MANAGER [facility] & CHILD [facility] 1..114 350.1.13.10 4.2.7.2.686 [id number] 107 [id number] [facility] 2022-11-28 15:45:00 2022-11-28 15:45:00 Outpatient R LIANET VELEZ [facility] [id number] [facility] 2022-11-10 13:30:00 2022-11-10 14:20:19 Outpatient R LIANET VELEZ [facility] [id number] [facility] 2022-11-10 13:30:00 2022-11-10 14:20:19 Office Visit Lianet Velez [facility] [employer] OUTSIDE SALES MANAGER [facility] CH[facility] 1.0.114 350.1.13.10 4.2.7.2.686 [id number] 107 [id number] [facility] 2022-11-10 00:00:00 2022-11-10 00:00:00 Orders Only Doctor Unassigned[place] [facility] 1..114 350.1.13.10 4.2.7.2.686 [id number] [facility] 2022-09-17 00:00:00 2022-09-17 00:00:00 Telephone Lianet Velez [facility] [employer] OUTSIDE SALES MANAGER [facility] CH[facility] 1..114 350.1.13.10 4.2.7.2.686 [id number] 107 [id number] [facility] 2022-09-02 00:00:00 2022-09-02 00:00:00 Letter (Out) Lianet Velez [facility] [employer] OUTSIDE SALES MANAGER [facility] & CHILD [facility] 1..114 350.1.13.10 4.2.7.2.686 [id number] [facility] 2022-09-01 13:30:00 2022-09-01 14:25:34 Outpatient R LIANET VELEZ [facility] [id number] [facility] 2022-09-01 13:30:00 2022-09-01 14:25:34 Office Visit Lianet Velez [facility] [employer] OUTSIDE SALES MANAGER [facility] CHILD [facility] 1..114 350.1.13.10 4.2.7.2.686 [id number] [facility] 2022-08-30 15:19:00 2022-08-30 17:36:00 Emergency X SARA FITZGERALD [facility] [id number] [facility] 2022-08-30 15:19:00 2022-08-30 17:36:00 Emergency Audra Eckert Whitney [facility] 1..114 350.1.13.10 4.2.7.2.686 [id number] [facility] 2022-08-29 00:00:00 2022-08-29 00:00:00 Telephone Lianet Velez [facility] [employer] OUTSIDE SALES MANAGER [facility] ..114 350.1.13.10 4.2.7.2.686 [id number] 107 [id number] [facility] 2022-06-06 00:00:00 2022-06-06 00:00:00 Orders Only Doctor Unassigned, [place] [facility] .114 350.1.13.10 4.2.7.2.686 [id number] [facility] 2022-06-05 00:00:00 2022-06-05 00:00:00 Telephone Lianet Velez [facility] [employer] OUTSIDE SALES MANAGER [facility] CHILD [facility] 1.2.840.114 350.1.13.10 4.2.7.2.686 [id number] [facility] 2022-06-05 00:00:00 2022-06-05 00:00:00 Telephone Lianet Velez [facility] [employer] OUTSIDE SALES MANAGER [facility] & CHILD [facility] 1.2.840.114 350.1.13.10 4.2.7.2.686 [id number] [facility] 2022-05-26 00:00:00 2022-05-26 00:00:00 Telephone Lianet Velez [facility] [employer] OUTSIDE SALES MANAGER [facility] 1.2.840.114 350.1.13.10 4.2.7.2.686 [id number] [facility] 2022-05-23 00:00:00 2022-05-23 00:00:00 Telephone Lianet Velez [facility] [employer] OUTSIDE SALES MANAGER [facility] CHILD [facility] 1.2840.114 350.1.13.10 4.2.7.2.686 [id number] [facility] 2022-05-21 11:00:00 2022-05-21 12:04:06 Outpatient R LIANET VELEZ [facility] [id number] [facility] 2022-05-21 11:00:00 2022-05-21 12:04:06 Office Visit Lianet Velez [facility] [employer] OUTSIDE SALES MANAGER [facility] & CHILD [facility] 1.2.840.114 350.1.13.10 4.2.7.2.686 [id number] [facility] 2022-05-21 00:00:00 2022-05-21 00:00:00 Orders Only Doctor Unassigned, [place] [facility] 1.2.840.114 350.1.13.10 4.2.7.2.686 [id number] [facility] 2022-05-12 08:30:00 2022-05-12 08:30:00 Outpatient ALINE FLORESROGEFelipe [facility] [id number] [facility] 2022-05-12 08:30:00 2022-05-12 08:30:00 Outpatient DANNY FLORESALEXFelipe [facility] [id number] [facility] 2021-10-13 03:32:00 2021-10-13 04:02:00 Emergency X SAURABH BO [facility] ERT [id number] [facility] 2021-10-13 03:32:00 2021-10-13 04:02:00 Emergency Saurabh Bo S [facility] 1..840.114 350.1.13.10 4.2.7.2.686 [id number] [facility] 2021-09-09 00:00:00 2021-09-09 00:00:00 Telephone Antoinette Perkins [facility] [employer] OUTSIDE SALES MANAGER [facility] CHILD [facility] 1.2.840.114 350.1.13.10 4.2.7.2.686 [id number] [facility] 2021-05-15 00:00:00 2021-05-15 00:00:00 Telephone Antoinette Perkins [facility] [employer] OUTSIDE SALES MANAGER [facility] CHILD [facility] 1.2.840.114 350.1.13.10 4.2.7.2.686 [id number] [facility] 2021-05-09 08:15:14 2021-05-09 09:09:39 Office Visit Antoinette Perkins [facility] [employer] OUTSIDE SALES MANAGER [facility] CHILD [facility] 1.2.840.114 350.1.13.10 4.2.7.2.686 [id number] [facility] 2021-05-09 08:00:00 2021-05-09 09:09:39 Outpatient R ANTOINETTE PERKINS [facility] [id number] [facility] 2021-05-09 08:00:00 2021-05-09 08:00:00 Outpatient ANTOINETTE JERRY [facility] [id number] [facility] 2021-05-09 00:00:00 2021-05-09 00:00:00 Orders Only Doctor Unassigned[place] [facility] 1.0.114 350.1.13.10 4.2.7.2.686 [id number] [facility] 2020-10-31 09:47:25 2020-10-31 10:02:25 Office Visit Carlos Gomez [facility] [employer] OUTSIDE SALES MANAGER [facility] 1..114 350.1.13.10 4.2.7.2.686 [id number] 2020-10-31 09:47:25 2020-10-31 10:02:25 Office Visit Carlos Gomez [facility] TERRITORY OUTSIDE SALES MANAGER [facility] 1..114 350.1.13.10 4.2.7.2.686 [id number] [facility] 2020-10-31 09:30:00 2020-10-31 09:30:00 Outpatient Tonia CARLOS GOMEZ [facility] [id number] [facility] 2020-09-11 00:00:00 2020-09-11 00:00:00 Patient Outreach Josafat Wong [facility] 1..114 350.1.13.10 4.2.7.2.686 [id number] [facility] 2020-08-14 15:41:52 2020-08-14 15:56:52 Diversity Manager Visit 2, Adc Lab Carleen Pritchard [facility] 1..114 350.1.13.10 4.2.7.2.686 [id number] [facility] 2020-08-14 14:37:13 2020-08-14 15:25:33 Office Visit Carleen Pritchard [facility] 1.2.840.114 350.1.13.10 4.2.7.2.686 [id number] [facility] 2020-08-14 14:30:00 2020-08-14 14:30:00 Outpatient R CARLEEN PRITCHARD [facility] [id number] [facility] 2020-08-14 14:00:00 2020-08-14 14:00:00 Outpatient R MANAN SPEARS [facility] [id number] [facility] 2020-08-14 00:00:00 2020-08-14 00:00:00 Telephone Lianet Velez [facility] [employer] OUTSIDE SALES MANAGER [facility] 1..840.114 350.1.13.10 4.2.7.2.686 [id number] [facility] 2020-08-14 00:00:00 2020-08-14 00:00:00 Letter (Out) Carleen Pritchard [facility] 1..840.114 350.1.13.10 4.2.7.2.686 [id number] [facility] 2020-02-10 13:30:00 2020-02-10 13:30:00 Outpatient R LIANET VELEZ [facility] [id number] [facility] 2020-02-08 15:15:00 2020-02-08 15:15:00 Outpatient R LIANET VELEZ [facility] [id number] [facility] 2019-12-28 00:00:00 2019-12-28 00:00:00 Telephone Kellie Suazo [facility] 1..840.114 350.1.13.10 4.2.7.2.686 [id number] [facility] 2019-12-28 00:00:00 2019-12-28 00:00:00 Letter (Out) Kellie Suazo [facility] 1.2.840.114 350.1.13.10 4.2.7.2.686 [id number] [facility] 2019-12-28 00:00:00 2019-12-28 00:00:00 Telephone Care, Hector Adult Urgent [facility] 1.2.840.114 350.1.13.10 4.2.7.2.686 [id number] [facility] 2019-12-26 16:11:45 2019-12-26 16:48:51 Laboratory Only Nurse, [facility] Urgent Unknown, Attending [facility] 1.0.114 350.1.13.10 4.2.7.2.686 [id number] [facility] 2019-12-26 16:15:00 2019-12-26 16:15:00 Outpatient R UNKNOWN, ATTENDING [facility] [id number] [facility] 2019-12-19 00:00:00 2019-12-19 00:00:00 Refill Lianet Velez [facility] [employer] OUTSIDE SALES MANAGER [facility]ILD [facility] 1.840.114 350.1.13.10 4.2.7.2.686 [id number] [facility] 2019-11-29 13:15:00 2019-11-29 13:15:00 Outpatient R LIANET VELEZ [facility] [id number] [facility] 2019-11-10 14:23:07 2019-11-10 14:53:07 Office Visit Lianet Velez [facility] [employer] OUTSIDE SALES MANAGER [facility] 1.840.114 350.1.13.10 4.2.7.2.686 [id number] [facility] 2019-11-10 14:15:00 2019-11-10 14:15:00 Outpatient R LIANET VELEZ [facility] [id number] [facility] 2019-11-10 00:00:00 2019-11-10 00:00:00 Orders Only Doctor Unassigned[place] [facility] 1.2840.114 350.1.13.10 4.2.7.2.686 [id number] [facility] 2019-11-08 13:51:45 2019-11-08 14:53:43 Office Visit Lianet Velez [facility] [employer] OUTSIDE SALES MANAGER [facility] 1.284.114 350.1.13.10 4.2.7.2.686 [id number] [facility] 2019-11-08 13:30:00 2019-11-08 13:30:00 Outpatient R LIANET VELEZ [facility] [id number] [facility] 2019-10-31 00:00:00 2019-10-31 00:00:00 Telephone Carlos Gomez [facility] [employer] OUTSIDE SALES MANAGER [facility] CHILD [facility] [id number] [facility] 2019-10-28 16:22:01 2019-10-28 16:33:34 Diversity Manager Visit Lab, Ang-Rmchp Lianet Velez [facility] [employer]IT[employer] OUTSIDE SALES MANAGER [facility] & CHILD [facility] [id number] [facility] 2019-10-28 13:30:00 2019-10-28 13:30:00 Outpatient R [facility] [id number] [facility] 2019-10-28 00:00:00 2019-10-28 00:00:00 Telephone Lianet Velez [facility] T[employer]IT[employer] OUTSIDE SALES MANAGER [facility] [id number] [facility] 2019-10-28 00:00:00 2019-10-28 00:00:00 Telephone FanRiki acevesant Zhong [facility] [employer] OUTSIDE SALES MANAGER [facility] & CHILD [facility] [id number] [facility] 2019-10-18 00:00:00 2019-10-18 00:00:00 Telephone Rosie Lianet Zhong [facility] [employer] OUTSIDE SALES MANAGER [facility] CHILD [facility] [id number] [facility] 2019-10-06 12:52:51 2019-10-06 15:03:09 Telemedici ne Visit Fanraymundoraul Lianet Zhong [facility] [employer] OUTSIDE SALES MANAGER [facility] CH[facility] [id number] [facility] 2019-10-06 15:00:00 2019-10-06 15:00:00 Outpatient R LIANET VELEZ IALALO [facility] [id number] [facility] 2019-09-29 00:00:00 2019-09-29 00:00:00 Telephone Liaent Velez [facility] [employer] OUTSIDE SALES MANAGER [facility] [id number] [facility] 2019-01-21 15:58:44 2019-01-21 17:01:24 Office Visit Lianet Velez [facility] [employer]IT[employer] OUTSIDE SALES MANAGER [facility] & CHILD [facility] [id number] [facility] Results Test Description Test Time Test Comments Results Result Co mments Source [facility] [id number] 18:37:00* Test Item Value Reference Range Interpretation Comme nts POCT PREG (test code = 1605) Negative On board controls acceptable with C Line (test code = 3574) Yes POCT PREG LOT # (test code = 3575) PO[facility] TEST DATE ( test code = 3576[id number] 18:32:00* Test Item Value Reference Range Interpretation Comme nts POCT PREG (test code = 1605) Negative On board controls acceptable with C Line (test code = 3574) Yes POCT PREG LOT # (test code = 3575) POCT PREG TEST DATE ( test code = 3576) [id number] 18:32:00* Test Item Value Reference Range Interpretation Comme nts POCT PREG (test code = 1605) Negative On board controls acceptable with C Line (test code = 3574) Yes POCT PREG LOT # (test code = 3575) POCT PREG TEST DATE ( test code = 3576) [facility] [id number] 22:06:00* Test Item Value Reference Range Interpretation Comme nts POCT PREG (test code = 1605) Negative On board controls acceptable with C Line (test code = 3574) Present POCT PREG LOT # (test code = 3575) HCG [id number] POCT PREG TEST DATE ( test code = 3576) 11/20/2023 Lab Interpretation (test cod e = [id number]) Normal [facility] URINALYSIS W/O SPECIFIC [id number] 14:34:00* Test Item Value Reference Range Interpretation Comme nts POCT PH U (test code = 3254) 5 mg/dl 5-8 POCT U LEUK EST (test code = 3263) trace Negative - Negative POCT U NIT (test code = 3262) - Negative - Negati ve POCT U PROT (test code = 3259) trace Negative - Negat ynes POCT U GLU (test code = 3256) - Negative - Negati ve POCT U KETONE (test code = 3258) - Negative - Neg ative POCT U BLD (test code = 3257) - Negative - Negati ve [facility]
[2023-06-16 17:43] LABS: Specific Gravity 1.024 (1.005-1.030)
[2023-06-16 17:45] LABS: Specific Gravity 1.024 (1.005-1.030); Urine Bacteria None Seen /HPF (<20); Urine Bilirubin NEGATIVE (Negative); Urine Blood Negative (Negative); Urine Clarity Extremely Turbid (Clear); Urine Color Light-Yellow (Yellow); Urine Glucose TRACE (Negative); Urine Mucus Slight /HPF (None Seen); Urine Protein TRACE (Negative); Urine RBC <5 /HPF (None Seen); Urine Urobilinogen Normal (Normal); Urine pH 7.5 (5.0-7.0)
[2023-06-16 18:20] LABS: Albumin 3.5 g/dL (3.4-5.0); Bilirubin Total 0.4 mg/dL (0.2-1.0); Potassium 3.5 mEq/L (3.5-5.1); Protein, Total 7.4 g/dL (6.4-8.2)
[2023-06-16 18:21] LABS: Hematocrit 39.2 % (36.0-45.0); Lymphocytes % 20.8 % (15.3-44.8); MCV 93.7 fL (80-100); MPV 7.4 fL (7.6-11.3); Platelets 303 thou/uL (152-406); RBC Red Blood Cell Count 4.19 M/uL (3.86-4.86)
--- NOTE | 2023-06-16 19:05 | RAD REPORT ---
EXAM DESCRIPTION: CTAbdomen Pelvis W Contrast - 06/16/2023 6:48 pm CLINICAL HISTORY: r/o pyelonephritis COMPARISON: Abdomen Pelvis W Contrast dated 01/12/2017 TECHNIQUE: CT of the abdomen and pelvis was performed. All CT scans are performed using dose optimization technique as appropriate and may include automated exposure control or mA/KV adjustment according to patient size. FINDINGS: Lower chest: No acute abnormality. Liver: No acute abnormality or suspicious lesions. Biliary: No biliary ductal dilatation. Stomach: No significant focal abnormality. Duodenum: No significant focal abnormality. Pancreas: No significant abnormality. Spleen: No significant abnormality. Adrenal: No suspicious lesions. Kidney/ureter: No hydronephrosis. No renal calculi. Too small to characterize and/or benign appearing renal lesions are noted. Retroperitoneum: No retroperitoneal adenopathy. Vascular: No aneurysm. Bowel: No significant focal abnormality. Normal appendix. Peritoneum: No ascites or free air. Bladder: Grossly unremarkable. Reproductive: No adnexal masses. Bones: No acute fracture. Other: n/a IMPRESSION: No acute intra-abdominal or pelvic finding. Normal appendix.
--- NOTE | 2023-06-16 19:39 | ER ---
Nurse's Notes [facility] Name: Bijal Andrade Age: 27 yrs Sex: Female : 1995 Arrival Date: 06/16/2023 Time: 16:19 Bed 5 Private MD: Diagnosis: Low back pain Presentation: 06/16 16:42 Chief complaint: Patient states: Low back pain, lower abdominal pain, has to push to 1 pee, CAMPA, fever since 06/13. Coronavirus screen: Client denies travel out of the [place] in the last 14 days. At this time, the client does not indicate any symptoms associated with coronavirus-19. Ebola Screen: Patient denies travel to an Ebola-affected area in the 21 days before illness onset. Initial Sepsis Screen: Does the patient meet any 2 criteria? No. Patient's initial sepsis screen is negative. Does the patient have a suspected source of infection? Yes: Dysuria/Frequency/Urgency/UTI. Risk Assessment: Do you want to hurt yourself or someone else? Patient reports no desire to harm self or others. Onset of symptoms was June 13, 2023. 16:42 Method Of Arrival: Ambulatory [facility] 16:42 Acuity: JUANIS 3 ll1 Triage Assessment: 16:44 General: Appears uncomfortable, Behavior is calm, cooperative, appropriate for age. iw Pain: Complains of pain in low back Quality of pain is described as aching. GI: Reports lower abdominal pain. : Reports forceful urination. Historical: - Allergies: 16:44 bandaids; ll1 16:44 Tape; ll1 - Home Meds: 18:17 Nexium 40 mg Oral cpDR 1 cap once daily [Active]; Acyclovir Oral [Active]; ondansetron tl4 HCl 4 mg Oral tablet [Active]; - PMHx: 16:44 Anemia; Colitis; Depression; GERD; HYDRONEPHROSIS; ibs; Migraines; ll1 - PSHx: 16:44 colonoscopy; endoscopy; ll1 - Immunization history:: Adult Immunizations up to date. - Social history:: Smoking status: Patient reports the use of cigarette tobacco products, smokes one-half pack cigarettes per day. Screenin:04 [facility] ED Fall Risk Assessment (Adult) History of falling in the last 3 months, tl4 including since admission No falls in past 3 months (0 pts) Confusion or Disorientation No (0 pts) Intoxicated or Sedated No (0 pts) Impaired Gait No (0 pts) Mobility Assist Device Used No (0 pt) Altered Elimination No (0 pt) Score/Fall Risk Level 0 - 2 = Low Risk. Abuse screen: Denies threats or abuse. Denies injuries from another. Nutritional screening: No deficits noted. Tuberculosis screening: No symptoms or risk factors identified. Assessment: 18:04 Reassessment: No changes from previously documented assessment. Patient and/or family tl4 updated on plan of care and expected duration. Pain level reassessed. Patient is alert, oriented x 3, equal unlabored respirations, skin warm/dry/pink. 19:35 Reassessment: Patient appears in no apparent distress at this time. Patient is alert, bp oriented x 3, equal unlabored respirations, skin warm/dry/pink. Vital Signs: 16:42 BP 132 / 70; Pulse 97; Resp 17; Temp 100; Pulse Ox 100% ; Weight 92.08 kg; Height 5 ft. ll1 5 in. ; Pain 8/10; 18:14 BP 102 / 81; Pulse 95; Resp 16; Pulse Ox 100% on R/A; tl4 19:35 BP 113 / 65; Pulse 73; Resp 16; Pulse Ox 98% ; bp 16:42 Body Mass Index 33.78 (92.08 kg, 165.1 cm) ll1 16:42 Pain Scale: Adult ll1 ED Course: 16:22 Patient arrived in ED. mg5 16:26 Parris Melendez [facility]-C [facility]. kb 16:26 Hank Hubbard MD is Attending Physician. kb 16:44 Triage completed. ll1 16:44 Arm band placed on. ll1 17:28 Urinalysis w/ reflexes Sent. ll1 17:28 Test, Urine Sent. ll1 17:32 Patient placed in an exam room, on a stretcher. iw 18:03 Inserted saline lock: 20 gauge in right forearm, using aseptic technique. Blood ld1 collected. 18:03 Inserted saline lock: 20 gauge in left antecubital area, using aseptic technique. Blood tl4 collected. 18:06 Patient has correct armband on for positive identification. Placed in gown. Bed in low tl4 position. Call light in reach. Side rails up X2. Provided Education on: ED process. 18:07 No provider procedures requiring assistance completed. tl4 18:23 Blood Culture Adult (2) Sent. ld1 18:50 CT Abd/Pelvis - IV Contrast Only In Process Unspecified. EDMS 19:35 Ezekiel Arredondo, RN is Primary Nurse. bp 19:55 IV discontinued, intact, bleeding controlled, No redness/swelling at site. Pressure jw7 dressing applied, R Forearm and L AC. Administered Medications: 18:12 Drug: Ketorolac IVP 15 mg IVP once Route: IVP; Site: left antecubital; tl4 19:55 Follow up: Response: No adverse reaction; Marked relief of symptoms jw7 Medication: 18:17 VIS not applicable for this client. tl4 Outcome: 19:38 Discharge ordered by . kb 19:55 Discharged to home ambulatory, jw7 19:55 Condition: stable 19:55 Discharge instructions given to patient, Instructed on discharge instructions, follow up and referral plans. Demonstrated understanding of instructions, follow-up care, 19:56 Patient left the ED. jw7 Signatures: Dispatcher [employer] EDMS Parris Melendez, KNOCK UP ASSEMBLER-C KNOCK UP ASSEMBLER-Ckb Anel Jacob, RN BOBBY iw Ezekiel Arredondo, RN RN bp Anisha Jama, BOBBY RN ll1 Norah Ansari RN RN ldJocelyn Bond RN RN jwRoro Brown mg5 Nestor Paris tl4
--- NOTE | 2023-06-16 19:39 | EDPHYS ---
Physician Documentation [facility] Name: Bijal Andrade Age: 27 yrs Sex: Female : 1995 Arrival Date: 06/16/2023 Time: 16:19 Bed 5 Private MD: ED Physician Hank Hubbard HPI: 06/16 20:02 This 27 yrs old Female presents to ER via Ambulatory with complaints of Low Back Pain. kb 20:02 Patient is a 27-year-old female who presents for low back pain, fever, difficulty kb urinating for 2 days. States she has had sepsis in the past due to a kidney infection so she wanted to come in to make sure she did not have 1 at this time. States she was recently diagnosed with bronchitis as well, has had cough, congestion for over a week.. Historical: - Allergies: 16:44 bandaids; ll1 16:44 Tape; ll1 - Home Meds: 18:17 Nexium 40 mg Oral cpDR 1 cap once daily [Active]; Acyclovir Oral [Active]; ondansetron tl4 HCl 4 mg Oral tablet [Active]; - PMHx: 16:44 Anemia; Colitis; Depression; GERD; HYDRONEPHROSIS; ibs; Migraines; ll1 - PSHx: 16:44 colonoscopy; endoscopy; ll1 - Immunization history:: Adult Immunizations up to date. - Social history:: Smoking status: Patient reports the use of cigarette tobacco products, smokes one-half pack cigarettes per day. ROS: 19:55 Constitutional: Negative for fever, chills, and weight loss, kb 19:55 ENT: Positive for rhinorrhea, sinus congestion, 19:55 Respiratory: Positive for cough, 19:55 Back: Positive for pain at rest, of the low back area, 19:55 : Positive for difficulty urinating, 19:55 All other systems are negative, Exam: 19:55 Constitutional: This is a well developed, well nourished patient who is awake, alert, kb and in no acute distress. Head/Face: Normocephalic, atraumatic. ENT: Moist Mucous membranes Cardiovascular: Regular rate Respiratory: Respirations even and unlabored. No increased work of breathing. Talking in full sentences Abdomen/GI: Soft, non-tender. No distention Back: No spinal tenderness. No costovertebral tenderness. Full range of motion. Skin: Warm, dry with normal turgor. Normal color. MS/ Extremity: Pulses equal, no cyanosis. Neurovascular intact. Full, normal range of motion. Neuro: Awake and alert, GCS 15, oriented to person, place, time, and situation. Moves all extremities. Normal gait. Vital Signs: 16:42 BP 132 / 70; Pulse 97; Resp 17; Temp 100; Pulse Ox 100% ; Weight 92.08 kg; Height 5 ft. ll1 5 in. ; Pain 8/10; 18:14 BP 102 / 81; Pulse 95; Resp 16; Pulse Ox 100% on R/A; tl4 19:35 BP 113 / 65; Pulse 73; Resp 16; Pulse Ox 98% ; bp 16:42 Body Mass Index 33.78 (92.08 kg, 165.1 cm) ll1 16:42 Pain Scale: Adult ll1 MDM: 16:26 Patient medically screened. kb 20:02 Differential diagnosis: UTI, Pyelonephritis, kidney stone. Data reviewed: vital signs, kb nurses notes. Counseling: I had a detailed discussion with the patient and/or guardian regarding the historical points, exam findings, and any diagnostic results supporting the discharge/admit diagnosis, lab results, radiology results, the need for outpatient follow up, a family practitioner, to return to the emergency department if symptoms worsen or persist or if there are any questions or concerns that arise at home. 06/16 16:44 Order name: Blood Culture Adult (2) kb 06/16 16:44 Order name: CBC with Diff; Complete Time: 18:27 kb 06/16 16:44 Order name: CMP; Complete Time: 18:27 kb 06/16 16:44 Order name: Lactate w/ 2H reflex if indic.; Complete Time: 18:27 kb 06/16 16:44 Order name: Protime (+inr); Complete Time: 18:27 kb 06/16 16:44 Order name: Ptt, Activated; Complete Time: 18:27 kb 06/16 16:44 Order name: Urinalysis w/ reflexes; Complete Time: 17:47 kb 06/16 16:44 Order name: Test, Urine; Complete Time: 17:47 kb 06/16 16:44 Order name: CT Abd/Pelvis - IV Contrast Only; Complete Time: 19:10 kb 06/16 16:44 Order name: Accucheck; Complete Time: 18:02 kb 06/16 16:44 Order name: Cardiac monitoring; Complete Time: 18:02 kb 06/16 16:44 Order name: EKG - Nurse/Tech; Complete Time: 18:23 kb 06/16 16:44 Order name: IV Saline Lock - Large Bore; Complete Time: 17:57 kb 06/16 16:44 Order name: Labs collected and sent; Complete Time: 17:57 kb 06/16 16:44 Order name: O2 Per Protocol; Complete Time: 17:33 kb 06/16 16:44 Order name: O2 Sat Monitoring; Complete Time: 17:33 kb 06/16 16:44 Order name: Vital Signs; Complete Time: 17:57 kb Administered Medications: 18:12 Drug: Ketorolac IVP 15 mg IVP once Route: IVP; Site: left antecubital; tl4 19:55 Follow up: Response: No adverse reaction; Marked relief of symptoms jw7 Disposition Summary: 06/16/23 19:38 Discharge Ordered Notes: Location: Home kb Condition: Stable kb Diagnosis - Low back pain kb Followup: kb - With: Emergency Department - When: As needed - Reason: Worsening of condition Followup: kb - With: Private Physician - When: 2 - 3 days - Reason: Recheck today's complaints, Continuance of care, Re-evaluation by your physician Discharge Instructions: - Discharge Summary Sheet kb - Musculoskeletal Pain kb Forms: - Medication Reconciliation Form kb - Thank You Letter kb - Antibiotic Education kb - Prescription Opioid Use kb - Patient Portal Instructions kb - Leadership Thank You Letter kb Addendum: 06/18/2023 09:22 I was immediately available for consultation during this patient's visit. I did not e c2 personally see the patient or guide the patient's care. . Signatures: Dispatcher [employer] Parris Britton FNP-C FNP-Anisha Amador RN RN ll1 Hank Hubbard MD MD ec2 Nestor Paris tl4 Jocelyn Tsai RN jw7
[2023-06-17 00:18] VITALS: TEMP 100
[2023-06-17 00:19] VITALS: BP 113/65; O2SAT 98
== END ==
LOC: ER 16:19
DX: M54.50 Low back pain, unspecified (principal); R05.9 Cough, unspecified; F17.210 Nicotine dependence, cigarettes, uncomplicated; Z91.048 Other nonmedicinal substance allergy status
CPT/HCPCS: 87040 ×2; 85025; 81001; 36415; 81025; 85610; 83605; 85730; 80053; 74177; 96374; 99284; Q9967

== ENCOUNTER 2024-04-20 02:33 | Emergency (ER) | payer SELFPAY ==
--- OUTSIDE RECORDS SUMMARY | 2024-04-20 02:39 | XMS REPORT | Continuity of Care Document ---
Author Name Unknown Address [address] [facility] [address] [place] [address] [facility] Address [address] [facility] [place] [address] Care Team Providers Care Windrower Operator Name Role Phone Gaby Rouse Meagan Primary Care Physician Damon Barrow Attending Clinician Unavailable Mikayla Duke NP Attending Clinician FILIBERTO ASCENCIO Attending Clinician Unavailable FILIBERTO ASCENCIO Attending Clinician Unavailable Lianet Mckinley Attending Clinician + LIANET VELEZ Attending Clinician Unavail able Doctor Unassigned, [place] Attending Clinician U SARA Mix Attending Clinician Unavailab alvin WHITFIELD, Audra S Attending Clinician [phone] Sara Fitzgerald DO Attending Clinician [phone] CARLOS GOMEZ Attending Clinician Unavailab SAURABH Tao Attending Clinician Unavailable Saurabh Bo MD Attending Clinician [phone] Cecil FRENCH POLISHER, Antoinette Johns Attending Clinician [phone] ANTOINETTE PERKINS Attending Clinician Unavailabl debbie ZAMBRANO, Carlos Randall Attending Clinician [phone] Josafat Wong DO Attending Clinician [phone], [facility] Attending Clinician Unavailable Carleen Pritchard MD Attending Clinician [phone] CARLEEN PRITCHARD Attending Clinician Unavailable MANAN SPEARS Attending Clinician Unavailable Gabriele ROSALES, Kellie Attending Clinician Unavailable Care, [facility] Adult Urgent Attending Clinician Unava ilmariela Nurse, Hector Urgent Attending Clinician Unavailabl e Unknown, Attending Attending Clinician Unavailab le UNKNOWN, ATTENDING Attending Clinician Unavailab le Lab, [facility] Attending Clinician Unavailable FILIBERTO ASCENCIO Admitting Clinician Unavailable Payers Payer Name Policy Type Policy Number Effective Date Expirati on Date Source [facility] 6 [id number] 2023 00:00:00 [facility] 6 [id number] 2020 00:00:00 [facility] 6 [id number] [facility] 6 [id number] [facility] Problems Condition Name Condition Details Condition Category Status Onset Date Resolution Date Last Treatment Date Treating Clinician Comments Source Other general counseling and advice for contracept ynes management Other general counseling and advice for contracept ynes management Disease Active 09-01 00:00: 00 [facility] History of herpes genitalis History of herpes genitalis Disease Active 09-01 00:00: 00 [facility] LGSIL on Pap smear of cervix LGSIL on Pap smear of cervix Disease Active 2021-06 215 00:00: 00 Overview: Formattin g of this note might be different from the original. Repeat pap in 1 year 05/2023 [facility] Obesity (BMI 30-39.9) Obesity (BMI 30-39.9) Disease Active 08-14 00:00: 00 [facility] Nexplanon insertion Nexplanon insertion Disease Active 11-09 00:00: 00 [facility] Situationa l depression Situationa l depression Disease Active 11-09 00:00: 00 [facility] Nexplanon in place Nexplanon in place Disease Active 11-09 00:00: 00 [facility] History of IBS History of IBS Disease Active 03-17 00:00: 00 [facility] Polyp of colon, unspecifie d part of colon, unspecifie d type Polyp of colon, unspecifie d part of colon, unspecifie d type Disease Active 07-08 00:00: 00 [facility] Tobacco use Tobacco use Disease Active 10-31 00:00: 00 [facility] Gastroesop hageal reflux disease without esophagiti s Gastroesop hageal reflux disease without esophagiti s Disease Active 10-31 00:00: 00 [facility] [id number] Obsessive- compulsive disorder, unspecifie d type Problem [facility] [id number] Dysthymic disorder Problem [facility] [id number] Recurrent urinary tract infection Problem [facility] [id number] Gastroesop hageal reflux disease, esophagiti s presence not specified Problem [facility] [id number] Congenital medullary sponge kidney Problem [facility] [id number] Obesity, Class II, BMI 35-39.9 Problem [facility] [id number] Toothache Problem Commo n [facility] [id number] Primary insomnia Problem [facility] [id number] Cigarette nicotine dependence without complicati on Problem [facility] [id number] Other migraine with status migrainosu s, not intractabl e Problem [facility] [id number] Decreased hearing, unspecifie d laterality Problem [facility] [id number] Current moderate episode of major depressive disorder without prior episode Problem [facility] [id number] Traumatic avulsion of nail plate of finger, initial encounter Problem [facility] [id number] Anxiety, generalize d Problem [facility] [id number] Irritable bowel syndrome with diarrhea Problem [facility] Morbid obesity with body mass index of 40.0-49.9 Morbid obesity with body mass index of 40.0-49.9 Disease Resolve d 10-20 00:00: 00 2021-05-09 00:00:00 2021-05-09 08:21:56 [facility] Other depression Other depression Disease Resolve d 109 00:00: 00 2021-05-09 00:00:00 2021-05-09 08:25:33 [facility] Encounter for care of lactating mother Encounter for care of lactating mother Disease Resolve d 11-11 00:00: 00 2019-01-24 00:00:00 2019-01-24 08:54:49 [facility] Anemia, Anemia, Disease Resolve d 10-22 00:00: 00 2019-01-24 00:00:00 2019-01-24 08:54:34 [facility] (spontaneo us vaginal delivery) (spontaneo us vaginal delivery) Disease Resolve d 10-22 00:00: 00 2018-11-11 00:00:00 2018-11-11 14:30:54 [facility] Single live Single live Disease Resolve d 10-22 00:00: 00 2018-11-11 00:00:00 2018-11-11 14:30:51 [facility] Sponge kidney Sponge kidney Disease Resolve d 10-20 00:00: 00 2018-11-11 00:00:00 2018-11-11 14:40:37 [facility] Depression affecting in third trimester, antepartum Depression affecting in third trimester, antepartum Disease Resolve d 4-25 00:00: 00 2018-11-11 00:00:00 2018-11-11 14:12:22 [facility] Headache in Headache in Disease Resolve d 4-03 00:00: 00 2018-11-11 00:00:00 2018-11-11 14:12:34 [facility] 39 weeks gestation of 39 weeks gestation of Disease Resolve d 2017-06 2-31 00:00: 00 2018-11-11 00:00:00 2018-11-11 14:12:13 [facility] UTI symptoms UTI symptoms Disease Resolve d 2017-06 0-26 00:00: 00 2018-11-11 00:00:00 2018-11-11 14:12:09 [facility] Supervisio n of high-risk Supervisio n of high-risk Disease Resolve d 9- 00:00: 00 2018-11-11 00:00:00 2018-11-11 14:30:53 [facility] Multiparit y Multiparit y Disease Resolve d 9- 00:00: 00 2018-11-11 00:00:00 2018-11-11 14:30:44 [facility] Obesity in Obesity in Disease Resolve d 9- 00:00: 00 2018-11-11 00:00:00 2018-11-11 14:30:48 [facility] Nausea and vomiting during prior to 22 weeks gestation Nausea and vomiting during prior to 22 weeks gestation Disease Resolve d 9-26 00:00: 00 2018-11-11 00:00:00 2018-11-11 14:30:45 [facility] History of gestationa l diabetes mellitus (GDM) History of gestationa l diabetes mellitus (GDM) Disease Resolve d 2015-0 5-12 00:00: 00 2018-11-11 00:00:00 2018-11-11 14:12:35 [facility] Weight gain finding Weight gain finding Disease Resolve d 07-08 00:00: 00 2018-03-17 00:00:00 2018-03-17 14:41:19 [facility] Uses vaginal contracept ynes ring Uses vaginal contracept ynes ring Disease Resolve d 07-08 00:00: 00 2018-03-17 00:00:00 2018-03-17 14:42:12 [facility] Disease Resolve d 10-31 00:00: 00 2018-03-17 00:00:00 2018-03-17 14:41:51 [facility] Supervisio n of high-risk of young primigravi da, third trimester Supervisio n of high-risk of young primigravi da, third trimester Disease Resolve d 10-31 00:00: 00 2017-07-08 00:00:00 2017-07-08 16:55:46 [facility] Allergies, Adverse Reactions, Alerts Allergy Name Allergy Type Status Severity Reaction(s) Onset Date Inactive Date Treating Clinician Comments Source NO KNOWN ALLERGIE S Drug Class Active [facility] Social History Social Habit Start Date Stop Date Quantity Comments Source History of Tobacco Use Current Smoker [facility] Sex Assigned At [facility] Gender identity [facility] Sexual orientation [facility] History SDOH Alcohol Frequency [facility] History SDOH Alcohol Std Drinks [facility] History SDOH Alcohol Binge [facility] Alcoholic beverage intake 2024-01-05 00:00:00 2024-01-05 00:00:00 0 /d [facility] Exposure to SARS-CoV-2 (event) 2022-10-31 00:00:00 2022-11-10 13:32:00 Not sure [facility] Alcohol intake 2022-09-01 00:00:00 2022-09-01 00:00:00 0 /d [facility] History of Social function 2022-05-21 00:00:00 2022-05-21 00:00:00 [facility] Cigarette pack-years 2022-05-21 00:00:00 2022-05-21 00:00:00 [facility] Cigarettes smoked current (pack per day) - Reported 2022-05-21 00:00:00 2022-05-21 00:00:00 [facility] Tobacco Comment 2022-05-21 00:00:00 2022-05-21 00:00:00 she smokes 5 cigarettes to 1.5 ppd, she says depends how she's feeling [facility] Tobacco use and exposure 2022-05-21 00:00:00 2022-05-21 00:00:00 Smokeless tobacco non-user [facility] Alcohol Comment 2017-03-20 00:00:00 2017-03-20 00:00:00 Occasionally [facility] Smoking Status Start Date Stop Date Source Never Smoker [facility] Smokes tobacco daily 2022-05-21 00:00:00 [facility] Medications Ordered Medication Name Filled Medication Name Start Date Stop Date Current Medication? Ordering Clinician Indication Dosage Frequency Signature (SIG) Comments Components Source Ondansetron HCl 4 MG Ondansetron HCl 4 MG 01-28 00:00: 00 No 1{table t} QD Ondansetro n HCl 4 MG iopamidol (ISOVUE 370-500 mL) injection 100 mL 01-04 16:30: 00 01-04 15:50 :00 No [id number] 100mL 100 mL, Intravenou s, ONCE, 1 dose, On Thu01/05/24 at 1130, Routine [facility] pantoprazol e (PROTONIX) injection 40 mg 01-04 15:30: 00 01-04 14:57 :00 No 40mg 40 mg, Slow IV Push, ONCE, 1 dose, On Thu01/05/24 at 1030 [facility] dicyclomine (BENTYL) injection 20 mg 01-04 15:30: 00 01-04 14:57 :00 No 20mg 20 mg, Intramuscu lar, ONCE NOW, 1 dose, On Thu01/05/24 at 1030, Routine [facility] FENTanyl PF (SUBLIMAZE (PF)) injection 25 mcg 01-04 14:45: 00 01-04 14:56 :00 No 25ug 25 mcg, Slow IV Push, ONCE, 1 dose, On Thu01/05/24 at 0945, STAT [facility] metoclopram geovanni HCl (REGLAN) injection 10 mg 01-04 14:45: 00 01-04 14:57 :00 No 10mg 10 mg, Slow IV Push, ONCE, 1 dose, On Thu01/05/24 at 0945, SASKIA [facility] ondansetron (ZOFRAN) 4 mg tablet 01-04 11:52: 06 Yes Zofran [facility] metoclopram geovanni HCl 10 mg tablet 01-04 00:00: 00 Yes [id number] 10mg Take 1 tablet by mouth every 6 (six) hours as needed for Nausea and Vomiting (N/V) or Gastroesop hageal reflux. [facility] predniSONE 20 MG predniSONE 20 MG 09-17 00:00: 00 No 2{table ts} QD predniSONE 20 MG Benzonatate 100 MG Benzonatate 100 MG 09-01 00:00: 00 No 1{capsu le_as_n eeded} TID Benzonatat e 100 MG valACYclovi r (VALTREX) 500 mg tablet 12-30 00:00: 00 Yes [id number] 500mg Take 1 tablet by mouth in the morning. [facility] acyclovir 400 mg tablet 12-25 00:00: 00 Yes [id number] 400mg Take 1 tablet by mouth in the morning and 1 tablet in the evening. [facility] etonogestre L (NEXPLANON) implant 68 mg 23 22:15: 00 11-10 21:24 :00 No [id number] 68mg [facility] valACYclovi r (VALTREX) 500 mg tablet 09-01 00:00: 00 10-02 04:59 :00 No [id number] 500mg Take 1 tablet by mouth in the morning for 30 days. [facility] acyclovir 400 mg tablet 2021-06-15 00:00: 00 Yes [id number] 400mg Take 1 tablet by mouth in the morning and 1 tablet in the evening. [facility] acyclovir 400 mg tablet 2021-06 00:00: 00 06-03 05:59 :00 No [id number] 400mg Take 1 tablet by mouth in the morning and 1 tablet at noon and 1 tablet in the evening. Do all this for 10 days. [facility] lidocaine 2 % mucosal jelly 2021-06 00:00: 00 05-22 05:59 :00 No [id number] 5mL Apply 2.5 Inches to area(s) once now for 1 dose. [facility] metroNIDAZO LE (FLAGYL) 500 mg tablet 2020-06 00:00: 00 05-23 05:59 :00 No [id number] 500mg Take 1 tablet by mouth 2 (two) times daily for 7 days. [facility] esomeprazol e magnesium (NEXIUM ORAL) 2020-06 08:38: 34 Yes Take by mouth. [facility] acetaminoph en-codeine 300-30 mg tablet 03-11 00:00: 00 05-09 00:00 :00 No [facility] phentermine 37.5 mg tablet 02-20 00:00: 00 05-09 00:00 :00 No [facility] amoxicillin 875 mg tablet 08-14 00:00: 00 05-09 00:00 :00 No [id number] 875mg Take 1 tablet by mouth 2 (two) times daily. [facility] albuterol 90 mcg/actuati on inhaler 2019-06 2-06 00:00: 00 05-09 00:00 :00 No INHALE 1 2 PUFFS BY MOUTH EVERY 4 6 HOURS [facility] esomeprazol e (NEXIUM) 40 mg capsule 5-21 00:00: 00 05-09 00:00 :00 No [id number] 40mg Take 1 capsule by mouth daily with breakfast. [facility] ibuprofen 600 mg tablet 10-22 00:00: 00 05-09 00:00 :00 No [id number] 600mg Take 1 tablet by mouth every 6 (six) hours as needed for Pain (scale 1-3) or Pain (scale 4-6) (Pain). Take with food or milk. [facility] NexIUM 40 MG NexIUM 40 MG No 1{capsu le} QD NexIUM 40 MG hydrOXYzine HCl 10 MG hydrOXYzine HCl 10 MG No hydrOXYzin e HCl 10 MG traZODone HCl 100 MG traZODone HCl 100 MG No 1{table t_at_be dtime} QD traZODone HCl 100 MG valACYclovi r HCl 500 MG valACYclovi r HCl 500 MG No 1{table t} QD valACYclov ir HCl 500 MG busPIRone HCl 7.5 MG busPIRone HCl 7.5 MG No busPIRone HCl 7.5 MG Zofran Zofran No Zofran Metoclopram geovanni HCl 10 MG Metoclopram geovanni HCl 10 MG No 1{table t_befor e_meals } BID Metoclopra mide HCl 10 MG Dicyclomine HCl 10 MG Dicyclomine HCl 10 MG No QD Dicyclomin e HCl 10 MG Venlafaxine HCl ER 150 MG Venlafaxine HCl ER 150 MG No 1{capsu le_with _food} QD Venlafaxin e HCl ER 150 MG Immunizations Ordered Immunization Name Filled Immunization Name Date Status Comments Source Influenza Virus Vaccine Quad IM, Preserv and ABX Free 6 MO-64 YRS 2022-05-21 00:00:00 Completed [facility] Influenza Virus Vaccine Quad IM, Preserv and ABX Free 6 MO-64 YRS 2022-05-21 00:00:00 Completed [facility] Influenza Virus Vaccine Quad IM, Preserv and ABX Free 6 MO-64 YRS 2022-05-21 00:00:00 Completed [facility] Influenza Virus Vaccine Quad IM, Preserv and ABX Free 6 MO-64 YRS 2022-05-21 00:00:00 Completed [facility] Influenza Virus Vaccine Quad IM, Preserv and ABX Free 6 MO64 YRS 2022-05-21 00:00:00 Completed [facility] Influenza Virus Vaccine Quad IM, Preserv and ABX Free 6 MO-64 YRS 2022-05-21 00:00:00 Completed [facility] Influenza Virus Vaccine Quad IM, Preserv and ABX Free 6 MO-64 YRS 2022-05-21 00:00:00 Completed [facility] Influenza Virus Vaccine Quad IM, Preserv and ABX Free 6 MO-64 YRS 2022-05-21 00:00:00 Completed [facility] Influenza Virus Vaccine Quad IM, Preserv and ABX Free 6 MO-64 YRS 2022-05-21 00:00:00 Completed [facility] Influenza Virus Vaccine Quad IM, Preserv and ABX Free 6 MO-64 YRS 2022-05-21 00:00:00 Completed [facility] Influenza Virus Vaccine Quad IM, Preserv and ABX Free 6 MO-64 YRS 2022-05-21 00:00:00 Completed [facility] Influenza Virus Vaccine Quad IM, Preserv and ABX Free 6 MO-64 YRS 2022-05-21 00:00:00 Completed [facility] Influenza Virus Vaccine Quad IM, Preserv and ABX Free 6 MO-64 YRS 2022-05-21 00:00:00 Completed [facility] Influenza Virus Vaccine Quad IM, Preserv and ABX Free 6 MO-64 YRS 2022-05-21 00:00:00 Completed [facility] Influenza Virus Vaccine Quad IM, Preserv and ABX Free 6 MO-64 YRS 2022-05-21 00:00:00 Completed [facility] HPV9 2021-05-09 00:00:00 Completed [facility] HPV9 2021-05-09 00:00:00 Completed [facility] HPV9 2021-05-09 00:00:00 Completed [facility] HPV9 2021-05-09 00:00:00 Completed [facility] HPV9 2021-05-09 00:00:00 Completed [facility] HPV9 2021-05-09 00:00:00 Completed [facility] HPV9 2021-05-09 00:00:00 Completed [facility] HPV9 2021-05-09 00:00:00 Completed [facility] HPV9 2021-05-09 00:00:00 Completed [facility] HPV9 2021-05-09 00:00:00 Completed [facility] HPV9 2021-05-09 00:00:00 Completed [facility] HPV9 2021-05-09 00:00:00 Completed [facility] HPV9 2021-05-09 00:00:00 Completed [facility] HPV9 2021-05-09 00:00:00 Completed [facility] HPV9 2021-05-09 00:00:00 Completed [facility] HPV9 2021-05-09 00:00:00 Completed [facility] HPV9 2021-05-09 00:00:00 Completed [facility] HPV9 2021-05-09 00:00:00 Completed [facility] HPV9 2021-05-09 00:00:00 Completed [facility] HPV9 2021-05-09 00:00:00 Completed [facility] HPV9 2018-11-11 00:00:00 Completed [facility] HPV9 2018-11-11 00:00:00 Completed [facility] HPV9 2018-11-11 00:00:00 Completed [facility] HPV9 2018-11-11 00:00:00 Completed [facility] HPV9 2018-11-11 00:00:00 Completed [facility] HPV9 2018-11-11 00:00:00 Completed [facility] HPV9 2018-11-11 00:00:00 Completed [facility] HPV9 2018-11-11 00:00:00 Completed [facility] HPV9 2018-11-11 00:00:00 Completed [facility] HPV9 2018-11-11 00:00:00 Completed [facility] HPV9 2018-11-11 00:00:00 Completed [facility] HPV9 2018-11-11 00:00:00 Completed [facility] HPV9 2018-11-11 00:00:00 Completed [facility] HPV9 2018-11-11 00:00:00 Completed [facility] HPV9 2018-11-11 00:00:00 Completed [facility] HPV9 2018-11-11 00:00:00 Completed [facility] HPV9 2018-11-11 00:00:00 Completed [facility] HPV9 2018-11-11 00:00:00 Completed [facility] HPV9 2018-11-11 00:00:00 Completed [facility] HPV9 2018-11-11 00:00:00 Completed [facility] TDAP 2018-08-05 00:00:00 Completed [facility] TDAP 2018-08-05 00:00:00 Completed [facility] TDAP 2018-08-05 00:00:00 Completed [facility] TDAP 2018-08-05 00:00:00 Completed [facility] TDAP 2018-08-05 00:00:00 Completed [facility] TDAP 2018-08-05 00:00:00 Completed [facility] TDAP 2018-08-05 00:00:00 Completed [facility] TDAP 2018-08-05 00:00:00 Completed [facility] TDAP 2018-08-05 00:00:00 Completed [facility] TDAP 2018-08-05 00:00:00 Completed [facility] TDAP 2018-08-05 00:00:00 Completed [facility] TDAP 2018-08-05 00:00:00 Completed [facility] TDAP 2018-08-05 00:00:00 Completed [facility] TDAP 2018-08-05 00:00:00 Completed [facility] TDAP 2018-08-05 00:00:00 Completed [facility] TDAP 2018-08-05 00:00:00 Completed [facility] TDAP 2018-08-05 00:00:00 Completed [facility] TDAP 2018-08-05 00:00:00 Completed [facility] TDAP 2018-08-05 00:00:00 Completed [facility] TDAP 2018-08-05 00:00:00 Completed [facility] Influenza Virus Vaccine 2018-03-08 00:00:00 Completed [facility] Influenza Virus Vaccine 2018-03-08 00:00:00 Completed [facility] Influenza Virus Vaccine 2018-03-08 00:00:00 Completed [facility] Influenza Virus Vaccine 2018-03-08 00:00:00 Completed [facility] Influenza Virus Vaccine 2018-03-08 00:00:00 Completed [facility] Influenza Virus Vaccine 2018-03-08 00:00:00 Completed [facility] Influenza Virus Vaccine 2018-03-08 00:00:00 Completed [facility] Influenza Virus Vaccine 2018-03-08 00:00:00 Completed [facility] Influenza Virus Vaccine 2018-03-08 00:00:00 Completed [facility] Influenza Virus Vaccine 2018-03-08 00:00:00 Completed [facility] Influenza Virus Vaccine 2018-03-08 00:00:00 Completed [facility] Influenza Virus Vaccine 2018-03-08 00:00:00 Completed [facility] Influenza Virus Vaccine 2018-03-08 00:00:00 Completed [facility] Influenza Virus Vaccine 2018-03-08 00:00:00 Completed [facility] Influenza Virus Vaccine 2018-03-08 00:00:00 Completed [facility] Influenza Virus Vaccine 2018-03-08 00:00:00 Completed [facility] Influenza Virus Vaccine 2018-03-08 00:00:00 Completed [facility] Influenza Virus Vaccine 2018-03-08 00:00:00 Completed [facility] Influenza Virus Vaccine 2018-03-08 00:00:00 Completed [facility] Influenza Virus Vaccine 2018-03-08 00:00:00 Completed [facility] HPV9 2017-07-08 00:00:00 Completed [facility] HPV9 2017-07-08 00:00:00 Completed [facility] HPV9 2017-07-08 00:00:00 Completed [facility] HPV9 2017-07-08 00:00:00 Completed [facility] HPV9 2017-07-08 00:00:00 Completed [facility] HPV9 2017-07-08 00:00:00 Completed [facility] HPV9 2017-07-08 00:00:00 Completed [facility] HPV9 2017-07-08 00:00:00 Completed [facility] HPV9 2017-07-08 00:00:00 Completed [facility] HPV9 2017-07-08 00:00:00 Completed [facility] HPV9 2017-07-08 00:00:00 Completed [facility] HPV9 2017-07-08 00:00:00 Completed [facility] HPV9 2017-07-08 00:00:00 Completed [facility] HPV9 2017-07-08 00:00:00 Completed [facility] HPV9 2017-07-08 00:00:00 Completed [facility] HPV9 2017-07-08 00:00:00 Completed [facility] HPV9 2017-07-08 00:00:00 Completed [facility] HPV9 2017-07-08 00:00:00 Completed [facility] HPV9 2017-07-08 00:00:00 Completed [facility] HPV9 2017-07-08 00:00:00 Completed [facility] Flucelvax (ccIIV4) - MDV - 0.5mL Flucelvax (ccIIV4) - MDV - 0.5mL Unknown Completed [facility] Gardasil, 9-valent Gardasil, 9-valent Unknown Completed [facility] Adacel (Tdap) Adacel (Tdap) Unknown Completed Co on [facility] Gardasil, HPV quadrivalent Gardasil, HPV quadrivalent Unknown Completed [facility] Flucelvax (ccIIV4) - MDV - 0.5mL Flucelvax (ccIIV4) - MDV - 0.5mL Unknown Completed [facility] Gardasil, 9-valent Gardasil, 9-valent Unknown Completed [facility] Adacel (Tdap) Adacel (Tdap) Unknown Completed Co mmon [facility] Gardasil, HPV quadrivalent Gardasil, HPV quadrivalent Unknown Completed [facility] Flucelvax (ccIIV4) - MDV - 0.5mL Flucelvax (ccIIV4) - MDV - 0.5mL Unknown Completed [facility] Gardasil, 9-valent Gardasil, 9-valent Unknown Completed [facility] Adacel (Tdap) Adacel (Tdap) Unknown Completed [facility] m[facility] Gardasil, HPV quadrivalent Gardasil, HPV quadrivalent Unknown Completed [facility] Flucelvax (ccIIV4) - MDV - 0.5mL Flucelvax (ccIIV4) - MDV - 0.5mL Unknown Completed [facility] Gardasil, 9-valent Gardasil, 9-valent Unknown Completed [facility] Adacel (Tdap) Adacel (Tdap) Unknown Completed [facility] m[facility] Gardasil, HPV quadrivalent Gardasil, HPV quadrivalent Unknown Completed [facility] Flucelvax (ccIIV4) - MDV - 0.5mL Flucelvax (ccIIV4) - MDV - 0.5mL Unknown Completed [facility] Gardasil, 9-valent Gardasil, 9-valent Unknown Completed [facility] Adacel (Tdap) Adacel (Tdap) Unknown Completed [facility] Gardasil, HPV quadrivalent Gardasil, HPV quadrivalent Unknown Completed [facility] Flucelvax (ccIIV4) - MDV - 0.5mL Flucelvax (ccIIV4) - MDV - 0.5mL Unknown Completed [facility] Gardasil, 9-valent Gardasil, 9-valent Unknown Completed [facility] Adacel (Tdap) Adacel (Tdap) Unknown Completed [facility] Gardasil, HPV quadrivalent Gardasil, HPV quadrivalent Unknown Completed [facility] Flucelvax (ccIIV4) - MDV - 0.5mL Flucelvax (ccIIV4) - MDV - 0.5mL Unknown Completed [facility] Gardasil, 9-valent Gardasil, 9-valent Unknown Completed [facility] Adacel (Tdap) Adacel (Tdap) Unknown Completed Co [facility] Gardasil, HPV quadrivalent Gardasil, HPV quadrivalent Unknown Completed [facility] Flucelvax (ccIIV4) - MDV - 0.5mL Flucelvax (ccIIV4) - MDV - 0.5mL Unknown Completed [facility] Gardasil, 9-valent Gardasil, 9-valent Unknown Completed [facility] Adacel (Tdap) Adacel (Tdap) Unknown Completed [facility] Gardasil, HPV quadrivalent Gardasil, HPV quadrivalent Unknown Completed [facility] HPV9 Unknown Completed [facility] Influenza Virus Vaccine Unknown Completed [facility] TDAP Unknown Completed [facility] Influenza Virus Vaccine Quad IM, Preserv and ABX Free 6 MO-64 YRS (FLUCELVAX) Unknown Completed [facility] HPV9 Unknown Completed [facility] Influenza Virus Vaccine Unknown Completed [facility] TDAP Unknown Completed [facility] Influenza Virus Vaccine Quad IM, Preserv and ABX Free 6 MO-64 YRS (FLUCELVAX) Unknown Completed [facility] HPV9 Unknown Completed [facility] Influenza Virus Vaccine Unknown Completed [facility] TDAP Unknown Completed [facility] Influenza Virus Vaccine Quad IM, Preserv and ABX Free 6 MO-64 YRS (FLUCELVAX) Unknown Completed [facility] HPV9 Unknown Completed [facility] Influenza Virus Vaccine Unknown Completed [facility] TDAP Unknown Completed [facility] Influenza Virus Vaccine Quad IM, Preserv and ABX Free 6 MO-64 YRS (FLUCELVAX) Unknown Completed [facility] Vital Signs Vital Name Observation Time Observation Value Comments S ource height 2024-02-24 08:40:00 66.00 [in_i] Com [facility] weight 2024-02-24 08:40:00 222.8 [lb_av] Co [facility] temperature 2024-02-24 08:40:00 97.4 [degF] Com [facility] bmi 2024-02-24 08:40:00 35.96 kg/m2 Comm on [facility] oximetry 2024-02-24 08:40:00 96 % Commo n [facility] respiratory rate 2024-02-24 08:40:00 16 /min [facility] blood pressure systolic 2024-02-24 08:40:00 118 mm[Hg] [facility] blood pressure diastolic 2024-02-24 08:40:00 66 mm[Hg] [facility] height 2024-01-29 13:00:00 66.00 [in_i] Com [facility] weight 2024-01-29 13:00:00 216.8 [lb_av] Co mmon [facility] temperature 2024-01-29 13:00:00 98.1 [degF] Com [facility] bmi 2024-01-29 13:00:00 34.99 kg/m2 Comm on [facility] oximetry 2024-01-29 13:00:00 99 % Commo n [facility] respiratory rate 2024-01-29 13:00:00 16 /min [facility] blood pressure systolic 2024-01-29 13:00:00 129 mm[Hg] [facility] blood pressure diastolic 2024-01-29 13:00:00 75 mm[Hg] [facility] Systolic blood pressure 2024-01-05 16:50:00 138 mm[Hg] [facility] Diastolic blood pressure 2024-01-05 16:50:00 84 mm[Hg] [facility] Heart rate 2024-01-05 16:50:00 94 /min [facility] Respiratory rate 2024-01-05 16:50:00 18 /min [facility] Oxygen saturation in Arterial blood by Pulse oximetry 2024-01-05 16:50:00 98 /min [facility] Body temperature 2024-01-05 14:22:00 36.94 Nila [facility] Body height 2024-01-05 14:19:00 165.1 cm [facility] Body weight 2024-01-05 14:19:00 95.255 kg [facility] BMI 2024-01-05 14:19:00 34.95 kg/m2 [facility] weight 2023-09-18 16:20:00 217.6 [lb_av] Co mmon [facility] temperature 2023-09-18 16:20:00 98.1 [degF] Com [facility] bmi 2023-09-18 16:20:00 35.12 kg/m2 Comm on [facility] oximetry 2023-09-18 16:20:00 97 % Commo n [facility] respiratory rate 2023-09-18 16:20:00 16 /min Common [facility] blood pressure systolic 2023-09-18 16:20:00 131 mm[Hg] [facility] blood pressure diastolic 2023-09-18 16:20:00 69 mm[Hg] [facility] height 2023-09-18 16:20:00 66.00 [in_i] Com [facility] height 2023-08-20 14:00:00 66.00 [in_i] Com [facility] weight 2023-08-20 14:00:00 218.0 [lb_av] Co mmon [facility] temperature 2023-08-20 14:00:00 98.2 [degF] Com [facility] bmi 2023-08-20 14:00:00 35.18 kg/m2 Comm on [facility] oximetry 2023-08-20 14:00:00 98 % Commo n [facility] respiratory rate 2023-08-20 14:00:00 16 /min Common [facility] blood pressure systolic 2023-08-20 14:00:00 132 mm[Hg] [facility] blood pressure diastolic 2023-08-20 14:00:00 70 mm[Hg] [facility] height 2023-07-21 13:00:00 66.00 [in_i] Com mon [facility] weight 2023-07-21 13:00:00 217.8 [lb_av] Co mmon [facility] temperature 2023-07-21 13:00:00 97.8 [degF] Com [facility] bmi 2023-07-21 13:00:00 35.15 kg/m2 Comm on [facility] oximetry 2023-07-21 13:00:00 99 % Commo n [facility] respiratory rate 2023-07-21 13:00:00 16 /min [facility] blood pressure systolic 2023-07-21 13:00:00 118 mm[Hg] [facility] blood pressure diastolic 2023-07-21 13:00:00 74 mm[Hg] [facility] Systolic blood pressure 2022-11-10 18:33:00 132 mm[Hg] [facility] Diastolic blood pressure 2022-11-10 18:33:00 76 mm[Hg] [facility] Heart rate 2022-11-10 18:33:00 86 /min [facility] Body temperature 2022-11-10 18:33:00 35.72 Nila [facility] Respiratory rate 2022-11-10 18:33:00 18 /min [facility] Body height 2022-11-10 18:33:00 165.1 cm [facility] Body weight 2022-11-10 18:33:00 90.946 kg [facility] BMI 2022-11-10 18:33:00 33.36 kg/m2 [facility] Heart rate 2022-09-01 18:31:00 84 /min [facility] Body temperature 2022-09-01 18:31:00 37 Nila [facility] Respiratory rate 2022-09-01 18:31:00 18 /min [facility] Body height 2022-09-01 18:31:00 165.1 cm [facility] Body weight 2022-09-01 18:31:00 93.078 kg [facility] BMI 2022-09-01 18:31:00 34.15 kg/m2 [facility] Systolic blood pressure 2022-09-01 18:31:00 132 mm[Hg] [facility] Diastolic blood pressure 2022-09-01 18:31:00 80 mm[Hg] [facility] Systolic blood pressure 2022-08-30 23:33:00 133 mm[Hg] [facility] Diastolic blood pressure 2022-08-30 23:33:00 84 mm[Hg] [facility] Heart rate 2022-08-30 23:33:00 81 /min [facility] Respiratory rate 2022-08-30 23:33:00 16 /min [facility] Oxygen saturation in Arterial blood by Pulse oximetry 2022-08-30 23:33:00 98 /min [facility] Body temperature 2022-08-30 21:17:00 37.39 Nila [facility] Body height 2022-08-30 21:17:00 165.1 cm [facility] Body weight 2022-08-30 21:17:00 90.719 kg [facility] BMI 2022-08-30 21:17:00 33.28 kg/m2 [facility] Systolic blood pressure 2022-05-21 17:15:00 140 mm[Hg] [facility] Diastolic blood pressure 2022-05-21 17:15:00 86 mm[Hg] [facility] Heart rate 2022-05-21 17:15:00 101 /min [facility] Body temperature 2022-05-21 17:14:00 37.06 Nila [facility] Respiratory rate 2022-05-21 17:14:00 18 /min [facility] Body height 2022-05-21 17:14:00 165.1 cm [facility] Body weight 2022-05-21 17:14:00 96.843 kg [facility] BMI 2022-05-21 17:14:00 35.53 kg/m2 [facility] Systolic blood pressure 2021-05-09 14:35:00 119 mm[Hg] [facility] Diastolic blood pressure 2021-05-09 14:35:00 72 mm[Hg] [facility] Heart rate 2021-05-09 14:35:00 101 /min [facility] Body temperature 2021-05-09 14:29:00 36.83 Nila [facility] Respiratory rate 2021-05-09 14:29:00 16 /min [facility] Body height 2021-05-09 14:29:00 165.1 cm [facility] Body weight 2021-05-09 14:29:00 82.146 kg [facility] BMI 2021-05-09 14:29:00 30.14 kg/m2 [facility] Procedures Procedure Date / Time Performed Performing Clinician Source CT ABDOMEN PELVIS W CONTRAST 2024-01-05 15:49:55 Filiberto Ascencio [facility] POCT TEST 2024-01-05 15:16:00 Filiberto Ascencio [facility] URINALYSIS 2024-01-05 14:53:00 Filiberto Ascencio [facility] LIPASE 2024-01-05 14:51:00 Filiberto Ascencio [facility] COMP. METABOLIC PANEL ([id number]) 2024-01-05 14:51:00 Filiberto Ascencio [facility] CBC WITH DIFF 2024-01-05 14:51:00 Filiberto Ascencio [facility] POCT TEST 2022-11-10 18:37:00 Berny Velez [facility] DISCLOSURE AND CONSENT, MEDICAL AND SURGICAL PROCEDURES 2022-11-10 05:01:00 Doctor Unassigned, [place] [facility] POCT TEST 2022-09-01 18:32:00 Berny Velez [facility] URINALYSIS 2022-08-30 22:06:00 [facility] 2022-08-30 22:06:00 Jennifer Fitzgerald [facility] CONSENT/REFUSAL FOR DIAGNOSIS AND TREATMENT 2022-08-30 21:05:00 Doctor Unassigned, [place] [facility] PATIENT CORRESPONDENCE (LETTERS, USPS DOCUMENTATION) 2022-06-06 06:01:00 Doctor Unassigned, [place] [facility] FLU VACC (), 6 MO-64 YRS, .5ML, IM, QUAD (FLUCELVAX) 2022-05-21 17:43:44 Lianet Velez [facility] ASSIGNMENT OF BENEFITS 2022-05-21 16:48:25 Docto r Unassigned, [place] [facility] GARDASIL 9 (HPV 9V) VACCINE 2021-05-09 14:42:06 Antoinette Perkins [facility] POCT URINALYSIS W/O SPECIFIC GRAVITY 2021-05-09 00:00:00 Antoinette Perkins [facility] Encounters Start Date/Time End Date/Time Encounter Type Admission Type Attending [facility] Care Facility Care Department Encounter ID Source 2024-04-06 11:05:00 Outpatient Damon Barrow [facility] [id number] [facility] 2024-02-18 08:12:00 Outpatient Damon Barrow [facility] [id number] [facility] 2024-01-27 07:54:00 Outpatient Damon Barrow [facility] [id number] [facility] 2023-11-04 15:14:01 Outpatient Damon Barrow [facility] [id number] [facility] 2023-09-28 08:58:01 Outpatient Damon Barrow [facility] [id number] [facility] 2023-09-16 08:30:01 Outpatient Damon Barrow [facility] [id number] [facility] 2023-07-21 13:02:01 Outpatient Damon Barrow [facility] [id number] [facility] 2023-06-19 10:13:00 Outpatient Damon Barrow [facility] [id number] [facility] 2023-06-17 10:00:01 Outpatient Damon Barrow [facility] [id number] [facility] 2024-04-06 00:00:00 2024-04-06 00:00:00 (TEL) [facility] ST[facility] [id number] [facility] 2024-02-24 00:00:00 2024-02-24 00:00:00 OFFICE VISIT ESTAB PT LEVEL 4 [facility] ST[facility] [id number] [facility] 2024-02-24 00:00:00 2024-02-24 00:00:00 (TEL) [facility]C ST[facility] [id number] [facility] 2024-02-23 00:00:00 2024-02-23 00:00:00 (TEL) [facility] ST[facility] [id number] [facility] 2024-02-18 00:00:00 2024-02-18 00:00:00 (TEL) [facility]LMLC ST[facility] [id number] [facility] 2024-02-10 00:00:00 2024-02-10 00:00:00 (TEL) [facility]LMLC ST[facility] [id number] [facility] 2024-01-29 00:00:00 2024-01-29 00:00:00 OFFICE VISIT ESTAB PT LEVEL 4 [facility] [id number] [facility] 2024-01-25 00:00:00 2024-01-25 00:00:00 (TEL) STLMLC STLMLC [id number] [facility] 2024-01-12 00:00:00 2024-01-12 14:49:36 Letter (Out) Mikayla Duke [facility] 1.2.840.114 350.1.13.10 4.2.7.2.686 [id number] [facility] 2024-01-05 09:25:00 2024-01-05 11:52:00 Emergency X FILIBERTO ASCENCIO PAMALA [facility] ERT [id number] [facility] 2024-01-05 09:25:00 2024-01-05 11:52:00 Emergency Filiberto Ascencio G [facility] [id number] 350.1.13.10 4.2.7.2.686 [id number] [facility] 2023-09-18 00:00:00 2023-09-18 00:00:00 OFFICE VISIT ESTAB PT LEVEL 4 [facility] ST[facility] [id number] [facility] 2023-09-02 00:00:00 2023-09-02 00:00:00 (TEL) STLMLC ST[facility]C [id number] [facility] 2023-09-02 00:00:00 2023-09-02 00:00:00 OFFICE VISIT ESTAB PT LEVEL 3 [facility] [id number] [facility] 2023-09-02 00:00:00 2023-09-02 00:00:00 (TEL) [facility]C ST[facility]C [id number] [facility] 2023-08-20 00:00:00 2023-08-20 00:00:00 (WEB) [facility]LMLC STL[facility]C [id number] [facility] 2023-08-20 00:00:00 2023-08-20 00:00:00 OFFICE VISIT ESTAB PT LEVEL 4 [facility] [id number] [facility] 2023-07-21 00:00:00 2023-07-21 00:00:00 OFFICE VISIT ESTAB PT LEVEL 4 [facility] [id number] [facility] 2023-06-27 00:00:00 2023-06-27 00:00:00 Refill Rosie Lianet C [facility] LOCATE TECHNICIAN [facility] 1.2.840.114 350.1.13.10 4.2.7.2.686 [id number] [facility] 2023-05-27 00:00:00 2023-05-27 00:00:00 Refill Riki Velezilola C [facility] LOCATE TECHNICIAN [facility] 1.2.840.114 350.1.13.10 4.2.7.2.686 [id number] [facility] 2022-12-30 00:00:00 2022-12-30 00:00:00 Telephone Riki Velezilola Trevin [facility] LOCATE TECHNICIAN [facility] 1.2.840.114 350.1.13.10 4.2.7.2.686 [id number] [facility] 2022-12-24 00:00:00 2022-12-24 00:00:00 Telephone Riki Velezilola Trevin [facility] LOCATE TECHNICIAN [facility] 1.2.840.114 350.1.13.10 4.2.7.2.686 [id number] [facility] 2022-11-28 15:45:00 2022-11-28 15:45:00 Outpatient R LIANET VELEZ [facility] [id number] [facility] 2022-11-10 13:30:00 2022-11-10 14:20:19 Outpatient R LIANET VELEZ [facility] [id number] [facility] 2022-11-10 13:30:00 2022-11-10 14:20:19 Office Visit Lianet Velez [facility] LOCATE TECHNICIAN [facility]ILD [facility] 1.2.840.114 350.1.13.10 4.2.7.2.686 [id number] [facility] 2022-11-10 00:00:00 2022-11-10 00:00:00 Orders Only Doctor Unassigned, [place] [facility] 1.2.840.114 350.1.13.10 4.2.7.2.686 [id number] [facility] 2022-09-17 00:00:00 2022-09-17 00:00:00 Telephone Lianet Velez [facility] LOCATE TECHNICIAN [facility] 1..840.114 350.1.13.10 4.2.7.2.686 [id number] [facility] 2022-09-02 00:00:00 2022-09-02 00:00:00 Letter (Out) Lianet Velez [facility] LOCATE TECHNICIAN [facility] 1.2.840.114 350.1.13.10 4.2.7.2.686 [id number] [facility] 2022-09-01 13:30:00 2022-09-01 14:25:34 Outpatient R LIANET VELEZ [facility] [id number] [facility] 2022-09-01 13:30:00 2022-09-01 14:25:34 Office Visit Lianet Velez [facility] LOCATE TECHNICIAN [facility] 1.2.840.114 350.1.13.10 4.2.7.2.686 [id number] [facility] 2022-08-30 15:19:00 2022-08-30 17:36:00 Emergency X SARA FITZGERALD [facility] ERT [id number] [facility] 2022-08-30 15:19:00 2022-08-30 17:36:00 Emergency Audra Eckert Whitney [facility] 1.2.840.114 350.1.13.10 4.2.7.2.686 [id number] [facility] 2022-08-29 00:00:00 2022-08-29 00:00:00 Telephone Lianet Velez [facility] LOCATE TECHNICIAN [facility] MATERNAL & CHILD [facility] 1.2.840.114 350.1.13.10 4.2.7.2.686 [id number] [facility] 2022-06-06 00:00:00 2022-06-06 00:00:00 Orders Only Doctor Unassigned, [place] [facility] 1.2.840.114 350.1.13.10 4.2.7.2.686 [id number] [facility] 2022-06-05 00:00:00 2022-06-05 00:00:00 Telephone Lianet Velez [facility] LOCATE TECHNICIAN [facility] 1.2.840.114 350.1.13.10 4.2.7.2.686 [id number] [facility] 2022-06-05 00:00:00 2022-06-05 00:00:00 Telephone Lianet Velez [facility] LOCATE TECHNICIAN [facility] MATERNAL & CHILD [facility] 1.2.840.114 350.1.13.10 4.2.7.2.686 [id number] [facility] 2022-05-26 00:00:00 2022-05-26 00:00:00 Telephone Lianet Velez [facility] LOCATE TECHNICIAN [facility] 1.2.840.114 350.1.13.10 4.2.7.2.686 [id number] [facility] 2022-05-23 00:00:00 2022-05-23 00:00:00 Telephone Lianet Velez [facility] LOCATE TECHNICIAN [facility] 1.840.114 350.1.13.10 4.2.7.2.686 [id number] [facility] 2022-05-21 11:00:00 2022-05-21 12:04:06 Outpatient R LIANET VELEZ [facility] [id number] [facility] 2022-05-21 11:00:00 2022-05-21 12:04:06 Office Visit Lianet Velez [facility] LOCATE TECHNICIAN [facility] 1.840.114 350.1.13.10 4.2.7.2.686 [id number] [facility] 2022-05-21 00:00:00 2022-05-21 00:00:00 Orders Only Doctor Unassigned, [place] [facility] 1.840.114 350.1.13.10 4.2.7.2.686 [id number] [facility] 2022-05-12 08:30:00 2022-05-12 08:30:00 Outpatient CARLOS FLORES [facility] [id number] [facility] 2022-05-12 08:30:00 2022-05-12 08:30:00 Outpatient CARLOS FLORES [facility] [id number] [facility] 2021-10-13 03:32:00 2021-10-13 04:02:00 Emergency X SAURABH BO [facility] ERT [id number] [facility] 2021-10-13 03:32:00 2021-10-13 04:02:00 Emergency Saurabh Bo [facility] 1.840.114 350.1.13.10 4.2.7.2.686 [id number] [facility] 2021-09-09 00:00:00 2021-09-09 00:00:00 Telephone Antoinette Perkins [facility] LOCATE TECHNICIAN [facility]ILD [facility] 1.2.114 350.1.13.10 4.2.7.2.686 [id number] [facility] 2021-05-15 00:00:00 2021-05-15 00:00:00 Telephone Antoinette Perkins [facility] LOCATE TECHNICIAN [facility] [facility] 1..114 350.1.13.10 4.2.7.2.686 [id number] [facility] 2021-05-09 08:15:14 2021-05-09 09:09:39 Office Visit Antoinette Perkins [facility] 1..114 350.1.13.10 4.2.7.2.686 [id number] [facility] 2021-05-09 08:00:00 2021-05-09 09:09:39 Outpatient ANTOINETTE JERRY [facility] [id number] [facility] 2021-05-09 08:00:00 2021-05-09 08:00:00 Outpatient ANTOINETTE JERRY [facility] [id number] [facility] 2021-05-09 00:00:00 2021-05-09 00:00:00 Orders Only Doctor Unassigned, Bowie [facility] .114 350.1.13.10 4.2.7.2.686 [id number] [facility] 2020-10-31 09:47:25 2020-10-31 10:02:25 Office Visit Carlos Gomez [facility] LOCATE TECHNICIAN [facility] 1..114 350.1.13.10 4.2.7.2.686 [id number] 2020-10-31 09:47:25 2020-10-31 10:02:25 Office Visit GomezCarlos [facility] LOCATE TECHNICIAN [facility] 1.2.840.114 350.1.13.10 4.2.7.2.686 [id number] [facility] 2020-10-31 09:30:00 2020-10-31 09:30:00 Outpatient CARLOS FLORES [facility] [id number] [facility] 2020-09-11 00:00:00 2020-09-11 00:00:00 Patient Outreach Josafat Wong [facility] 1.2.840.114 350.1.13.10 4.2.7.2.686 [id number] [facility] 2020-08-14 15:41:52 2020-08-14 15:56:52 Roofing Plant Supervisor Visit 2, Adc Lab RyanCarleen vega [facility] 1.2.840.114 350.1.13.10 4.2.7.2.686 [id number] [facility] 2020-08-14 14:37:13 2020-08-14 15:25:33 Office Visit Carleen Pritchard [facility] 1.2.840.114 350.1.13.10 4.2.7.2.686 [id number] [facility] 2020-08-14 14:30:00 2020-08-14 14:30:00 Outpatient R CARLEEN PRITCHARD [facility] [id number] [facility] 2020-08-14 14:00:00 2020-08-14 14:00:00 Outpatient MANAN CALDERON [facility] [id number] [facility] 2020-08-14 00:00:00 2020-08-14 00:00:00 Telephone Lianet Velez [facility] LOCATE TECHNICIAN [facility] 1..114 350.1.13.10 4.2.7.2.686 [id number] [facility] 2020-08-14 00:00:00 2020-08-14 00:00:00 Letter (Out) Carleen Pritchard [facility] 1..114 350.1.13.10 4.2.7.2.686 [id number] [facility] 2020-02-10 13:30:00 2020-02-10 13:30:00 Outpatient LIANET CLAUDIO [facility] [id number] [facility] 2020-02-08 15:15:00 2020-02-08 15:15:00 Outpatient LIANET CLAUDIO [facility] [id number] [facility] 2019-12-28 00:00:00 2019-12-28 00:00:00 Telephone [facility] 1..114 350.1.13.10 4.2.7.2.686 [id number] [facility] 2019-12-28 00:00:00 2019-12-28 00:00:00 Letter (Out) [facility] 1..114 350.1.13.10 4.2.7.2.686 [id number] [facility] 2019-12-28 00:00:00 2019-12-28 00:00:00 Telephone Care, Hector Adult Urgent [facility] 1..114 350.1.13.10 4.2.7.2.686 [id number] [facility] 2019-12-26 16:11:45 2019-12-26 16:48:51 Laboratory Only Nurse, Hector Urgent Unknown, Attending [facility] 1.114 350.1.13.10 4.2.7.2.686 [id number] [facility] 2019-12-26 16:15:00 2019-12-26 16:15:00 Outpatient R UNKNOWN, ATTENDING [facility] [id number] [facility] 2019-12-19 00:00:00 2019-12-19 00:00:00 Refill Lianet Velez [facility] LOCATE TECHNICIAN [facility] 1..114 350.1.13.10 4.2.7.2.686 [id number] [facility] 2019-11-29 13:15:00 2019-11-29 13:15:00 Outpatient R LIANET VELEZ [facility] [id number] [facility] 2019-11-10 14:23:07 2019-11-10 14:53:07 Office Visit Lianet Velez [facility] LOCATE TECHNICIAN [facility] 1.114 350.1.13.10 4.2.7.2.686 [id number] [facility] 2019-11-10 14:15:00 2019-11-10 14:15:00 Outpatient R LIANET VELEZ [facility] [id number] [facility] 2019-11-10 00:00:00 2019-11-10 00:00:00 Orders Only Doctor Unassigned, Bowie [facility] 1.114 350.1.13.10 4.2.7.2.686 [id number] [facility] 2019-11-08 13:51:45 2019-11-08 14:53:43 Office Visit Lianet Velez [facility] LOCATE TECHNICIAN [facility] 1..114 350.1.13.10 4.2.7.2.686 [id number] [facility] 2019-11-08 13:30:00 2019-11-08 13:30:00 Outpatient R LIANET VELEZ [facility] [id number] [facility] 2019-10-31 00:00:00 2019-10-31 00:00:00 Telephone Carlos Gomez R [facility] LOCATE TECHNICIAN [facility] 1.2.840.114 350.1.13.10 4.2.7.2.686 [id number] [facility] 2019-10-28 16:22:01 2019-10-28 16:33:34 Roofing Plant Supervisor Visit Lab, Ang-Rmchp Lianet Velez [facility] LOCATE TECHNICIAN [facility] 1.2.840.114 350.1.13.10 4.2.7.2.686 [id number] [facility] 2019-10-28 13:30:00 2019-10-28 13:30:00 Outpatient R [facility] [id number] [facility] 2019-10-28 00:00:00 2019-10-28 00:00:00 Telephone Lianet Velez [facility] LOCATE TECHNICIAN [facility] 1.2.840.114 350.1.13.10 4.2.7.2.686 [id number] [facility] 2019-10-28 00:00:00 2019-10-28 00:00:00 Telephone Lianet Velez [facility] LOCATE TECHNICIAN [facility] 1.2.840.114 350.1.13.10 4.2.7.2.686 [id number] [facility] 2019-10-18 00:00:00 2019-10-18 00:00:00 Telephone Lianet Velez [facility] LOCATE TECHNICIAN [facility] 1.2.840.114 350.1.13.10 4.2.7.2.686 [id number] [facility] 2019-10-06 12:52:51 2019-10-06 15:03:09 Telemedici ne Visit Lianet Velez [facility] LOCATE TECHNICIAN [facility] 1.2.840.114 350.1.13.10 4.2.7.2.686 [id number] [facility] 2019-10-06 15:00:00 2019-10-06 15:00:00 Outpatient R LIANET VELEZ [facility] [id number] [facility] 2019-09-29 00:00:00 2019-09-29 00:00:00 Telephone Lianet Velez [facility] LOCATE TECHNICIAN [facility] 1.2.840.114 350.1.13.10 4.2.7.2.686 [id number] [facility] 2019-01-21 15:58:44 2019-01-21 17:01:24 Office Visit Lianet Velez [facility] LOCATE TECHNICIAN [facility] 1.2.840.114 350.1.13.10 4.2.7.2.686 [id number] [facility] Results Test Description Test Time Test Comments Results Result Comments Source CT ABDOMEN PELVIS W CONTRAST 15:55:19 EXAM: CT ABDOMEN PELVIS W CONTRAST ORDERING PROVIDER: FILIBERTO ASCENCIO HISTORY: 28 years-old Female; Provided Ordering Indication: Abdominalabscess/infecti on suspected . History independently obtained from [facility]: "bloody diarrhea and generalizedabdominal pain x 1 week. " TECHNIQUE: Contiguous axial imaging from the level of the lung basesthrough the proximal thighs was performed with intravenous contrast.Coronal and sagittal reconstructions were obtained. COMPARISON: None FINDINGS: The lung bases are clear. The liver is at the upper limits of normal in size at 17.7 cm in thecraniocaudal dimension. The parenchyma is diffusely hypoattenuating. Nofocal lesion is seen. The gallbladder, biliary system, pancreas, and spleen enhance appropriatelyand of no suspicious findings. The kidneys have no stone, hydronephrosis, or suspicious mass. Bilateralsimple renal cysts are present. The gastrointestinal tract has no obstruction. A normal appendix is shownon series 3 image 70. No more than a mild volume of solid stool is present. The urinary bladder is decompressed. The uterus and adnexa have nosuspicious lesions. No free air, fluid collection, or suspicious lymphadenopathy is seen. The vasculature is patent. No acute osseous abnormality or aggressiveosseous lesion is visualized. The soft tissues are unremarkable. [facility] [id number] 18:37:00* Test Item Value Reference Range Interpretation Comme nts POCT PREG (test code = 1605) Negative On board controls acceptable with C Line (test code = 3574) Yes POCT PREG LOT # (test code = 3575) POCT PREG TEST DATE ( test code = 3576) [facility] [id number] 18:37:00* Test Item Value Reference Range Interpretation Comme nts POCT PREG (test code = 1605) Negative On board controls acceptable with C Line (test code = 3574) Yes POCT PREG LOT # (test code = 3575) POCT PREG TEST DATE ( test code = 3576) [facility] [id number] 18:32:00* Test Item Value Reference Range Interpretation Comme nts POCT PREG (test code = 1605) Negative On board controls acceptable with C Line (test code = 3574) Yes POCT PREG LOT # (test code = 3575) POCT PREG TEST DATE ( test code = 3576) [facility] [id number] 18:32:00* Test Item Value Reference Range Interpretation Comme nts POCT PREG (test code = 1605) Negative On board controls acceptable with C Line (test code = 3574) Yes POCT PREG LOT # (test code = 3575) POCT PREG TEST DATE ( test code = 3576) [facility] [id number] 22:06:00* Test Item Value Reference Range Interpretation Comme nts POCT PREG (test code = 1605) Negative On board controls acceptable with C Line (test code = 3574) Present POCT PREG LOT # (test code = 3575) HCG [id number] POCT PREG TEST DATE ( test code = 3576) 11/20/2023 Lab Interpretation (test cod e = [id number]) [facility] SPECIFIC [id number] 14:34:00* Test Item Value Reference Range Interpretation [...] = 3257) - Negative - Negati ve [facility] Notes Date/Time Note Provider Source 2024-01-05 11:51:23 Patient teaching on f/u care and prescription meds. Pt verbalized understanding [facility] Lidia Phillips RN [facility] 2024-01-05 11:31:44 Pt is resting on stretcher with blanket covering whole head. [facility] 2024-01-05 10:31:29 PT arrived to ed with c/o abd pain started a few days ago, pt reports being seen at [facility] 2 days ago and doesn't feel like pain is getting better. Pt is reporting N/V diarrhea. [facility] 2024-01-05 09:19:36 Bijal Wiggins is a 28 year old female ambulatory to ED with c/o bloody diarrhea and generalized abdominal pain x 1 week. Pt states bloody diarrhea is bright red "like water red". Went to [facility] and got a CT that patient states they said was clear and no issue. They sent home with scripts for zofran and dicyclomine. +CAMPA, +dizziness +diarrhea Pt denies blurred vision, CAMPA, sore throat, fever. Pt resp equal, unlabored, Skin w/d, intact, and color appropriate to ethnicity. Pt ambulatory. NAD noted. A&O x4 LMP 3 years +smoker Drever in triage Past Medical History: Diagnosis Date Anemia, 10/22/2018 Chronic kidney disease Sponge Kidney / Stones/ UTI Depression, unspecified depression type 06/30/2018 GDM (gestational diabetes mellitus) 11/01/2015 IBS (irritable bowel syndrome) LGSIL on Pap smear of cervix 06/05/2022 Medullary sponge kidney Migraine Ovarian cyst 2020 er Lynn Kyle RN [facility]
[2024-04-20] MEDS ORDERED: CEPHALEXIN 250 MG CAP ONE (03:13)
[2024-04-20] MEDS ORDERED: LIDOCAINE HCL JELLY 2% 6 ML SYRINGE TOP ONE (03:13)
--- NOTE | 2024-04-20 03:37 | ER ---
Nurse's Notes [facility] Name: Bijal Andrade Age: 28 yrs Sex: Female : 1995 Arrival Date: 04/20/2024 Time: 02:33 Bed 5 Private MD: Diagnosis: Toe Wound Presentation: 04/20 02:50 Chief complaint: Patient states: I was swimming in [place] and sliced my toe bm8 about 1-2 hrs ago. Coronavirus screen: At this time, the client does not indicate any symptoms associated with coronavirus-19. Ebola Screen: Patient negative for fever greater than or equal to 101.5 degrees Fahrenheit, and additional compatible Ebola Virus Disease symptoms Patient denies exposure to infectious person. Patient denies travel to an Ebola-affected area in the 21 days before illness onset. No symptoms or risks identified at this time. Initial Sepsis Screen: Does the patient meet any 2 criteria? No. Patient's initial sepsis screen is negative. Does the patient have a suspected source of infection? No. Patient's initial sepsis screen is negative. Risk Assessment: Do you want to hurt yourself or someone else? Patient reports no desire to harm self or others. Onset of symptoms was April 20, 2024 at 01:00. 02:50 Method Of Arrival: Ambulatory bm8 02:50 Acuity: JUANIS 4 bm8 Triage Assessment: 02:51 General: Appears in no apparent distress. uncomfortable, Behavior is calm, cooperative, bm8 appropriate for age. Pain: Complains of pain in plantar aspect of right first toe Pain currently is 10 out of 10 on a pain scale. Quality of pain is described as throbbing. EENT: No deficits noted. No signs and/or symptoms were reported regarding the EENT system. Neuro: No deficits noted. Level of Consciousness is awake, alert, obeys commands, Oriented to person, place, time, situation, Appropriate for age. Cardiovascular: Denies chest pain, Capillary refill < 3 seconds in bilateral fingers toes Patient's skin is warm and dry. Respiratory: Airway is patent Respiratory effort is even, unlabored, Respiratory pattern is regular, symmetrical. GI: No signs and/or symptoms were reported involving the gastrointestinal system. : No signs and/or symptoms were reported regarding the genitourinary system. Derm: Wound noted plantar aspect of right first toe Wound is lac to great toe approx 1" Reports pain that is 10 out of 10 on a pain scale. Musculoskeletal: No signs and/or symptoms reported regarding the musculoskeletal system. 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 - Infectious Disease History:: Denies. - Social history:: Smoking status: Reported history of juuling and/or vaping. Screenin:55 [facility] ED Fall Risk Assessment (Adult) History of falling in the last 3 months, bm8 including since admission No falls in past 3 months (0 pts) Confusion or Disorientation No (0 pts) Intoxicated or Sedated No (0 pts) Impaired Gait No (0 pts) Mobility Assist Device Used No (0 pt) Altered Elimination No (0 pt) Score/Fall Risk Level 0 - 2 = Low Risk Oriented to surroundings, Maintained a safe environment, Educated pt \\T\\ family on fall prevention, incl call for assistance when getting out of bed, Assessed \\T\\ reinforced patient's understanding of fall precautions, Hourly rounding (assess needs \\T\\ fall precautionary measures) done, Used ambulatory aids as needed (educated on \\T\\ assisted with), Used gait belt as appropriate. Abuse screen: Denies threats or abuse. Nutritional screening: No deficits noted. Tuberculosis screening: No symptoms or risk factors identified. Assessment: 02:55 Reassessment: see triage assessment. bm8 03:45 Reassessment: Patient appears in no apparent distress at this time. Patient and/or bm8 family updated on plan of care and expected duration. Pain level reassessed. Patient is alert, oriented x 3, equal unlabored respirations, skin warm/dry/pink. Patient states feeling better. Patient states symptoms have improved. Vital Signs: 02:50 BP 137 / 75; Pulse 97; Resp 17; Temp 98.6; Pulse Ox 97% ; Weight 95.25 kg; Height 5 ft. bm8 5 in. ; Pain 10/10; 03:45 BP 124 / 87; Pulse 93; Resp 17; Temp 98.6; Pulse Ox 98% ; Pain 3/10; bm8 02:50 Body Mass Index 34.95 (95.25 kg, 165.1 cm) bm8 02:50 Pain Scale: Adult bm8 03:45 Pain Scale: Adult bm8 Elizabeth Coma Score: 02:55 Eye Response: spontaneous(4). Motor Response: obeys commands(6). Verbal Response: bm8 oriented(5). Total: 15. 03:45 Eye Response: spontaneous(4). Motor Response: obeys commands(6). Verbal Response: bm8 oriented(5). Total: 15. ED Course: 02:38 Patient arrived in ED. gm2 02:39 Hank Hubbard MD is Attending Physician. ec2 02:50 Rashi Fong, RN is Primary Nurse. bm8 02:51 Triage completed. bm8 02:51 Arm band placed on right wrist. bm8 02:55 Patient has correct armband on for positive identification. Side rails up X 1. Client bm8 placed on continuous cardiac and pulse oximetry monitoring. NIBP monitoring applied. Pulse ox on. NIBP on. Door closed. Noise minimized. Visitors limited. Warm blanket given. Pillow given. Verbal reassurance given. 02:55 No provider procedures requiring assistance completed. Patient did not have IV access bm8 during this emergency room visit. Patient maintains SpO2 saturation greater than 95% on room air. 03:21 Wound care: to laceration located on plantar aspect of right first toe was cleaned with bm8 Betadine, dressed with 4X4s, lido gel, Patient tolerated well. 03:34 Foot Right 3 View XRAY In Process Unspecified. EDMS 03:45 Provided Education on: post er care. bm8 Administered Medications: 03:20 Drug: Cephalexin PO 500 mg PO once Route: PO; bm8 03:45 Follow up: Response: No adverse reaction bm8 03:21 Drug: Lidocaine Mucous Membrane Gel 2 % 1 application Mucous Membrane once Route: bm8 Mucous Membrane; 03:45 Follow up: Response: No adverse reaction bm8 03:45 Drug: Boostrix Tdap IM 0.5 ml IM once; as a single dose Route: IM; Site: right gluteus; bm8 03:45 Follow up: Response: Medication administered at discharge. bm8 Medication: 02:55 VIS not applicable for this client. bm8 Outcome: 03:36 Discharge ordered by . [email or web address] 03:45 Discharged to home ambulatory, with family, bm8 03:45 Condition: stable 03:45 Discharge instructions given to patient, family, Instructed on discharge instructions, follow up and referral plans. medication usage, safety practices, wound care, Demonstrated understanding of instructions, follow-up care, medications, Prescriptions given X 1, 03:47 Patient left the ED. bm8 Signatures: Dispatcher [employer] EDHank Yip MD MD ec2 Alma Rosa Mejias 2 Rashi Fong, RN RN bm8
--- NOTE | 2024-04-20 03:37 | EDPHYS ---
Physician Documentation [facility] Name: Bijal Andrade Age: 28 yrs Sex: Female : 1995 Arrival Date: 04/20/2024 Time: 02:33 Bed 5 Private MD: ED Physician Hank Hubbard HPI: 04/20 03:10 This 28 yrs old Female presents to ER via Ambulatory with complaints of Toe ec2 Injury. 03:10 Patient arrives today for evaluation of a right great toe injury. She reports that she ec2 was swimming in water and subsequently stepped on something sharp and injured the right great toe. No other concerns, no medication allergies. Injury occurred just prior to arrival.. 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 - Infectious Disease History:: Denies. - Social history:: Smoking status: Reported history of juuling and/or vaping. ROS: 03:10 Constitutional: as per hpi ec2 Exam: 03:10 Constitutional: GEN: NAD Head: atraumatic Eyes: EOMI Ears: External ears are ec2 normal. CV: regular rate LUNGS: no respiratory distress ABD: non-distended SKIN: Right great toe with superficial wounds appreciated, no bony deformities MSK: no evidence of trauma Vital Signs: 02:50 BP 137 / 75; Pulse 97; Resp 17; Temp 98.6; Pulse Ox 97% ; Weight 95.25 kg; Height 5 ft. bm8 5 in. ; Pain 1010; 03:45 BP 124 / 87; Pulse 93; Resp 17; Temp 98.6; Pulse Ox 98% ; Pain 3/10; bm8 02:50 Body Mass Index 34.95 (95.25 kg, 165.1 cm) bm8 02:50 Pain Scale: Adult bm8 03:45 Pain Scale: Adult bm8 Elizabeth Coma Score: 02:55 Eye Response: spontaneous(4). Motor Response: obeys commands(6). Verbal Response: bm8 oriented(5). Total: 15. 03:45 Eye Response: spontaneous(4). Motor Response: obeys commands(6). Verbal Response: bm8 oriented(5). Total: 15. MDM: 02:44 Medical Screening Exam initiated ec2 03:10 Data reviewed: vital signs. ED course: Patient arrives today for right great toe ec2 injury. Examination remarkable for toe findings as above. Will clean the wound, apply topical numbing medication, obtain radiograph to evaluate for retained foreign body. Differential diagnosis included processes such as bony fracture, cellulitis, osteomyelitis . 03:36 ED course: Foot x-ray independently reviewed and interpreted by me, shows no bony ec2 fracture. Will discharge home, prescribe the patient antibiotics have the patient follow-up PCP. Return precautions given.. 04/20 03:20 Order name: Foot Right 3 View XRAY ec2 04/20 03:09 Order name: Wound Care; Complete Time: 03:21 ec2 04/20 03:09 Order name: Misc. Order: soak gauze in lidocaine gel, place on great toe; Complete ec2 Time: 03:20 Administered Medications: 03:20 Drug: Cephalexin PO 500 mg PO once Route: PO; bm8 03:45 Follow up: Response: No adverse reaction bm8 03:21 Drug: Lidocaine Mucous Membrane Gel 2 % 1 application Mucous Membrane once Route: bm8 Mucous Membrane; 03:45 Follow up: Response: No adverse reaction bm8 03:45 Drug: Boostrix Tdap IM 0.5 ml IM once; as a single dose Route: IM; Site: right gluteus; bm8 03:45 Follow up: Response: Medication administered at discharge. bm8 Disposition Summary: 04/20/24 03:36 Discharge Ordered Notes: Location: Home ec2 Condition: Stable ec2 Diagnosis - Toe Wound ec2 Followup: ec2 - With: Private Physician - When: - Reason: Re-evaluation by your physician Discharge Instructions: - Discharge Summary Sheet ec2 - Puncture Wound ec2 Forms: - Medication Reconciliation Form ec2 - Antibiotic Education ec2 - Prescription Opioid Use ec2 - Patient Portal Instructions ec2 - Leadership Thank You Letter ec2 Prescriptions: - Cephalexin 500 mg Oral capsule - take 1 capsule ORAL route every 6 hours for 7 days; 28 capsule; Refills: 0, ec2 Product Selection Permitted Signatures: Dispatcher [employer] Hank Diaz MD MD ec2 Rashi Fong RN RN bm8 Corrections: (The following items were deleted from the chart) 02:45 02:45 Foot Right 3 View+RAD.RAD.BRZ ordered. NOEMI FRANKLIN
[2024-04-20] MEDS ORDERED: TDAP (DIPHTH,PERTUSS(ACELL),TET VAC) 0.5 ML VIAL IMVAC ONE (03:41)
[2024-04-20 03:52] VITALS: TEMP 98.6
[2024-04-20 03:53] VITALS: BP 124/87; O2SAT 98
--- NOTE | 2024-04-20 06:06 | RAD REPORT ---
EXAM: XR Right Foot, 2 Views CLINICAL HISTORY: The patient is 28 years old and is Female; Great toe injury. TECHNIQUE: Two views of the right foot. COMPARISON: No relevant prior studies available. FINDINGS: Bones/joints: Unremarkable. No acute fracture. No dislocation. Soft tissues: External artifact on the great toe from bandaging. No radiopaque foreign object vis ualized. IMPRESSION: External artifact on the great toe from bandaging. No radiopaque foreign object visualized. Electronically signed by: Prerna Vanessa MD 04/20/2024 05:13 AM CDT RP ND Due to temporary technical issues with the PACS/[employer] reporting system, reports are being wally d by the in-house radiologist without review as a courtesy to ensure prompt reporting the interpreting radiologist is fully responsible for the content of the report. Transcribed Date/Time: 04/20/2024 6:06 AM
== END 2024-04-20 03:47 | disposition home or self-care (01) ==
LOC: ER 02:33
DX: S91.101A Unspecified open wound of right great toe without damage to nail, initial encounter (principal)
CPT/HCPCS: 96372; 99284